=== PATIENT | female | born 1975 | race Caucasian/White ===

== ENCOUNTER → 2017-11-21 09:09 | Outpatient (CLI) | payer OTHER, MEDICAID, SELFPAY ==
[2017-11-21 09:41] LABS: Add Manual Diff / Slide Review NO; Basophils Percent Auto 0.6 % (0-2); Eosinophils Percent Auto 2.4 % (2-4); Hematocrit 39.5 % (36-46); Hemoglobin 12.6 g/dL (12.0-16.0); Lymphocytes Percent Auto 22.7 % (25-40); Mean Corpuscular HGB Conc 31.9 % (30-36); Mean Corpuscular Hemoglobin 26.2 PG (26-34); Mean Corpuscular Volume 82.2 fL (80-100); Monocytes Percent Auto 6.1 % (3-14); Neutrophils Absolute Auto 7500 /uL (3000-5900); Neutrophils Percent Auto 68.2 % (50-75); Platelet Count 377 X10^3/uL (150-400); Red Blood Cell Count 4.81 X10^6/uL (4.0-5.2); Red Cell Distribution Width 15.7 % (11.6-14.8)
[2017-11-21 10:16] LABS: Alanine Aminotransferase 47 IU/L (9-52); Albumin 4.1 g/dL (3.5-5.0); Albumin Globulin Ratio 1.3 (1.0-2.8); Alkaline Phosphatase 87 U/L (38-126); Aspartate Aminotransferase 26 IU/L (14-36); Bilirubin Total 0.6 mg/dL (0.2-1.3); Blood Urea Nitrogen 15 mg/dL (7-17); Calcium 9.1 mg/dL (8.4-10.2); Carbon Dioxide 30 mmol/L (22-32); Chloride 102 mmol/L (98-107); Cholesterol 169 mg/dL (140-199); Estimated Glomerular Filt Rate > 60.0 mL/min (>60); Globulin 3.2 g/dL (1.7-4.1); Glucose 104 mg/dL (70-100); HDL Cholesterol 40 mg/dL (40-60); HEMOLYSIS < 15 (0-50); LDL Cholesterol Calculated 108 mg/dL (<100); Potassium 4.6 mmol/L (3.4-5.1); Sodium 141 mmol/L (137-145); Total Protein 7.3 g/dL (6.3-8.2); Triglycerides 105 mg/dL (35-150)
[2017-11-21 10:32] LABS: Vitamin D 25 Hydroxy (D3) 19.3 ng/mL (30.0-100.0)
[2017-11-21 11:06] LABS: Thyroid Stimulating Hormone 4.93 uIU/mL (0.47-4.68)
[2017-11-23 08:23] LABS: Lamotrigine Lamictal 2.5 mcg/mL (4.0-18.0)
== END ==
PROVIDERS: PCP Internal Medicine; Visit Provider Internal Medicine
DX: E55.9 Vitamin D deficiency, unspecified (principal); E78.5 Hyperlipidemia, unspecified; E11.8 Type 2 diabetes mellitus with unspecified complications; E03.9 Hypothyroidism, unspecified; F98.8 Other specified behavioral and emotional disorders with onset usually occurring in childhood and adolescence
CPT/HCPCS: 36415; 80053; 80061; 80175; 82306; 83036; 84443; 85025

== ENCOUNTER → 2019-10-20 13:55 | Outpatient (CLI) | payer OTHER, MEDICAID, SELFPAY ==
[2019-10-20 15:12] LABS: Alanine Aminotransferase 32 IU/L (<35); Albumin 4.1 g/dL (3.5-5.0); Albumin Globulin Ratio 1.1 (1.0-2.8); Alkaline Phosphatase 111 U/L (38-126); Aspartate Aminotransferase 32 IU/L (14-36); BUN Creatinine Ratio 21.2 (6-22); Bilirubin Total 0.3 mg/dL (0.2-1.3); Blood Urea Nitrogen 11 mg/dL (7-17); Calcium 9.6 mg/dL (8.4-10.2); Carbon Dioxide 36 mmol/L (22-32); Chloride 101 mmol/L (98-107); Cholesterol 182 mg/dL (140-199); Estimated Glomerular Filt Rate > 60.0 mL/min (>60); Globulin 3.7 g/dL (1.7-4.1); Glucose 131 mg/dL (70-100); HDL Cholesterol 36 mg/dL (40-60); HEMOLYSIS < 15 (0-50); LDL Cholesterol Calculated 106 mg/dL (<100); Potassium 4.7 mmol/L (3.4-5.1); Sodium 145 mmol/L (137-145); Total Protein 7.8 g/dL (6.3-8.2); Triglycerides 201 mg/dL (35-150)
[2019-10-20 15:25] LABS: Creatinine Urine Random 90.9 mg/dL
[2019-10-20 15:31] LABS: Microalbumin Urine Random < 0.6 mg/dL (0-1.6)
[2019-10-20 15:40] LABS: Vitamin D 25 Hydroxy (D3) 14.5 ng/mL (30.0-100.0)
[2019-10-20 15:41] LABS: Thyroid Stimulating Hormone 7.02 uIU/mL (0.47-4.68)
== END ==
PROVIDERS: Family Provider Internal Medicine; PCP Internal Medicine; Referring Provider Internal Medicine; Visit Provider Internal Medicine
DX: E55.9 Vitamin D deficiency, unspecified (principal); E03.9 Hypothyroidism, unspecified; E78.5 Hyperlipidemia, unspecified; I10 Essential (primary) hypertension; E11.8 Type 2 diabetes mellitus with unspecified complications
CPT/HCPCS: 36415; 80053; 80061; 82043; 82306; 82570; 83036; 84443

== ENCOUNTER → 2020-05-13 10:26 | Outpatient (CLI) | payer OTHER, MEDICAID, SELFPAY ==
[2020-05-13] MEDS: COVID-19 VACC, Ad26(JANSSEN)/PF 0.5 ML IM (10:34)
== END ==
PROVIDERS: Family Provider Internal Medicine; PCP Internal Medicine; Visit Provider Internal Medicine
DX: Z23 Encounter for immunization (principal)
CPT/HCPCS: 0031A; 91303

== ENCOUNTER 2023-01-11 16:30 | Inpatient (IN) | payer OTHER, MEDICAID, SELFPAY ==
[2023-01-11] VITALS (80 sets, daily range): BP systolic 75–209; BP diastolic 42–130; PULSE 49–114; RESP 10–27; TEMP 35.9–36; O2SAT 89–100; BMI 51.5; BMI 41.6; BMI 41.0
--- NOTE | 2023-01-11 | DI.RAD.S_ITS ---
PROCEDURE: XR CHEST 1V INDICATIONS: CENTRAL LINE PLACEMENT LEFT TECHNIQUE: One view of the chest was acquired. COMPARISON: [facility], CR, XR CHEST 1V, 01/11/2023, 18:14. [facility], CR, XR CHEST 1V, 01/11/2023, 17:08. FINDINGS: Surgical changes and devices: Endotracheal tube is seen in stable position. Enteric tube traverses the diaphragm with tip below the field of view of this exam. Interval placement of a left internal jugular catheter. Catheter tip is noted to be turned on itself with tip projecting cephalad over the region of the left upper chest. Lungs and pleura: Low lung volumes are seen bilaterally. Bilateral interstitial prominence does not appear significantly changed. No definite pleural effusion or pneumothorax. Mediastinum: Stable cardiomediastinal silhouette. Bones and chest wall: No suspicious bony lesions. Overlying soft tissues appear unremarkable. IMPRESSION: 1. Interval placement of left internal jugular catheter. Mild positioning is noted with catheter tip directed cephalad projecting over the left upper chest. Recommend removal and replacement. 2. Stable endotracheal and enteric tubes. 3. Stable appearance of the heart and lungs when compared to the most recent prior exam. Line placement was discussed with the referring physician, Dr. Mullen, by telephone on 01/11/2023 at 8:09 PM. Approved by: Alvaro Kim M.D. on 01/11/2023 at 20:11
--- NOTE | 2023-01-11 | DI.RAD.S_ITS ---
PROCEDURE: XR CHEST 1V INDICATIONS: INTUBATION TECHNIQUE: One view of the chest was acquired. COMPARISON: [facility], CR, XR CHEST 1V, 01/11/2023, 17:08. FINDINGS: Surgical changes and devices: Nasogastric tube with tip and side port below the diaphragm. Endotracheal tube in place with tip approximately 2.8 cm above the memo. Lungs and pleura: Prominent interstitial markings and patchy bilateral opacities. No pleural effusions or pneumothorax. Mediastinum: Mediastinal contours appear normal. Heart size is enlarged. Bones and chest wall: No suspicious bony lesions. Overlying soft tissues appear unremarkable. IMPRESSION: Prominent interstitial markings and patchy bilateral opacities, concerning for edema or infection. Lines and tubes as above. Dictated by: Lio Guerra M.D. on 01/11/2023 at 18:49 Approved by: Lio Guerra M.D. on 01/11/2023 at 18:50
--- NOTE | 2023-01-11 16:44 | DI.RAD.S_ITS ---
PROCEDURE: XR CHEST 1V INDICATIONS: overdose TECHNIQUE: One view of the chest was acquired. COMPARISON: None. FINDINGS: Surgical changes and devices: None. Lungs and pleura: Low lung volumes. Prominent interstitial markings. No pleural effusions or pneumothorax. Mediastinum: Mediastinal contours appear normal. Heart size is enlarged. Bones and chest wall: No suspicious bony lesions. Overlying soft tissues appear unremarkable. IMPRESSION: Low lung volumes. Prominent interstitial markings which may be secondary to low lung volumes. Infection or edema is not excluded and clinical correlation is recommended. Cardiomegaly. Dictated by: Lio Guerra M.D. on 01/11/2023 at 17:38 Approved by: Lio Guerra M.D. on 01/11/2023 at 17:39
--- NOTE | 2023-01-11 16:45 | ED_ITS ---
HPI - Overdose <Marycruz Richards DO - Last Filed: 01/12/23 12:43> General Chief Complaint: Unresponsive Stated Complaint: OD Time Seen by Provider: 01/11/23 16:43 Source: patient, RN notes reviewed and old records reviewed Mode of arrival: EMS Limitations: altered mental status History of Present Illness HPI Narrative: 48-year-old female with history of DARON and obesity presents with complaints of reported intentional overdose. Unsure exact onset but believed to be in the last 1-2 hours. Patient had texted friend who reached out to law enforcement/EMS. Was found to have bottle of [place] 10/31967 tablets in the prescription filled on 12/25 appears to be 40 tablets missing. Patient also had a bottle of nighttime cold and flu with Tylenol 650 mg, dextromethorphan 30 mg, doxylamine 12.5 mg per 30 mL with a total of 55 mL in the bottle and approximately 320 mL missing. Patient received 4 mg in 2 mg aliquots from EMS with some improvement in mentation. Patient was afebrile, normal blood pressure, glucose and heart rate in the field. 93% room air. Patient appears altered, does respond mildly to verbal stimuli and responds well to physical stimuli. Unable to obtain further history from the patient. Related Data Home Medications Medication Instructions Recorded Confirmed OMEPRAZOLE 20 mg PO Q DAY ##0 11/23/09 Allergies Allergy/AdvReac Type Severity Reaction Status Date / Time No Allergy Information Allergy Verified 01/11/23 22:44 Available Review of Systems <Marycruz Richards DO - Last Filed: 01/12/23 12:43> Review of Systems ROS Unobtainable: Unobtainable due to medical condition Patient History <Marycruz Richards DO - Last Filed: 01/12/23 12:43> Medical History Morbid obesity with body mass index (BMI) of 50.0 to 59.9 in adult (~09/26/17) ADD (attention deficit disorder) without hyperactivity Osteoarthritis Migraine Irritable bowel syndrome (IBS) Fibromyalgia Asthma Atherosclerosis of abdominal aorta Type 2 diabetes mellitus Depression Anxiety Primary insomnia Snoring Nocturnal hypoxemia Obstructive sleep apnea of adult Social History household members: friend(s) Exam <Marycruz Richards DO - Last Filed: 01/12/23 12:43> Narrative Exam Narrative: GEN: Female responds to verbal stimuli can tell me her name, back asleep quickly patient appears to be in moderate distress. No diaphoresis. Patient does not follow commands. HEENT: Atraumatic, pupils are equal round reactive to light, extraocular movements are intact, no nystagmus, nares are clear, there is no conjunctival pallor. Throat is clear without any exudates, erythema, tonsillar enlargement or uvular deviation HEART: Regular rate and rhythm without murmur, clicks, rubs. Pulses are equal in upper and lower extremities LUNGS:Lungs clear to auscultation, no wheezes, rales, crackles, chest moves symmetrically ABD:bowel sounds normal, soft, non-tender, no guarding, rebound, rigidity, no masses noted, no hepatosplenomegaly :No CVA tenderness MSCL: Non-tender, no muscle atrophy, muscles strength 5/5 upper and lower extremities, full range of motion upper extremity. NEURO:CN 2-12 intact, sensation normal SKIN: Rash, erythema or other skin changes. Initial Vital Signs Initial Vital Signs: Vital Signs Pulse Rate 73 01/11/23 16:46 Respiratory Rate 17 01/11/23 16:46 Pulse Oximetry 95 01/11/23 16:46 <Marycruz Mullen MD - Last Filed: 01/12/23 02:27> Initial Vital Signs Initial Vital Signs: Vital Signs Pulse Rate 73 01/11/23 16:46 Respiratory Rate 17 01/11/23 16:46 Pulse Oximetry 95 01/11/23 16:46 Procedures <Marycruz Mullen MD - Last Filed: 01/12/23 02:27> Central Line Placement Left IJ: Time Out Performed: Yes Patient Placed on Monitor/Pulse Ox: Yes MD Prep: mask, gown and gloves Central Line Prep: Chlorhexidine scrub and sterile drapes applied Local Anesthetic: lidocaine 1% Amount of anesthesia used (mL): 5 Ultrasound Used for Placement: Yes Central Line Lumen Inserted: triple Post Procedure: sutured in place, good blood return, all ports aspirated, flushed, capped and sterile dressing applied Post Procedure X-Ray: other (tip of catheter appears to loop back up into IJ) Patient Tolerated Procedure: Well and No complications Complications: other (Malposition) Intubation Time out performed: Yes sedative: Etomidate Mg Given: 20 paralytic: Rocuronium Laryngoscope: Donnie ET Tube Size: 7.5 ET Tube Uncuffed: No Tube Secured Depth (cm): 25 Tube Secured Location: teeth Tube Placement Confirmation: Visualized tube passing through cords, Equal breath sounds bilaterally, No breath sounds over epigastrium, Confirmation by capnometry and Chest Xray Patient Tolerated Procedure: No complications Intubation Complications: none Scores <Marycruz Richards DO - Last Filed: 01/12/23 12:43> GCS [place] coma scale eye opening: To pressure [place] coma scale verbal response: Words Shaila coma scale motor response: Localising Shaila coma scale total score: 10 <Marycruz Mullen MD - Last Filed: 01/12/23 02:27> GCS Shaila coma scale total score: 10 Course <Marycruz Richards DO - Last Filed: 01/12/23 12:43> Orders Ordered: Chlorhexidine Gluconate (Chlorhexidine Gluconate 15 Ml Cup) 15 ml PO Q6HR [facility] Last Admin: 01/12/23 12:00 Dose: 15 ml Documented By: Enoxaparin Sodium (Enoxaparin 40 Mg/0.4 Ml Syringe) 40 mg SUBCUT BID [facility] Last Admin: 01/12/23 11:00 Dose: 40 mg Documented By: MS Fentanyl (Fentanyl 100 Mcg/2 Ml Inj) 44 mcg 0.35 mcg/kg (44 mcg) IV Q1HR PRN PRN Reason: Pain, Severe (7-10) Heparin Sodium (Porcine) (Heparin Flush (Cl/Picc/Mid-Line) 50 Unit/5 Ml Syringe) 50 unit IV PRN PRN PRN Reason: Flush Naloxone HCl 2 mg/ Sodium (Chloride) 500 mls @ 62.5 mls/hr IV TITRATE [facility] Last Infusion: 01/11/23 18:00 Dose: 0 mg/hr, 0 mls/hr Documented By: Admin: 01/11/23 17:40 Dose: 0.25 mg/hr, 62.5 mls/hr Documented By: CARMEN NOREPINEPHRINE BITARTRATE/D5W (Levophed) 4 mg in 250 mls @ 47.967 mls/hr IV TITRATE [facility]; Protocol Last Titration: 01/11/23 21:00 Dose: 0 mcg/kg/min, 0 mls/hr Documented By: Titration: 01/11/23 19:42 Dose: 0.025 mcg/kg/min, 11.992 mls/hr Documented By: Titration: 01/11/23 18:17 Dose: 0.05 mcg/kg/min, 23.984 mls/hr Documented By: Admin: 01/11/23 17:30 Dose: 0.1 mcg/kg/min, 47.967 mls/hr Documented By: CARMEN Dextrose/Sodium Chloride (Dextrose 5%-0.9% Ns) 1,000 mls @ 100 mls/hr IV CONT TEE Last Admin: 01/12/23 09:17 Dose: 100 mls/hr Documented By: Infusion: 01/12/23 09:00 Dose: Infused Documented By: Admin: 01/11/23 23:00 Dose: 100 mls/hr Documented By: LEONILA Propofol (Propofol) 1,000 mg in 100 mls @ 3.837 mls/hr IV TITRATE TEE; Protocol Last Admin: 01/12/23 12:07 Dose: 45 mcg/kg/min, 34.533 mls/hr Documented By: Titration: 01/12/23 12:07 Dose: Infused Documented By: Admin: 01/12/23 09:15 Dose: 45 mcg/kg/min, 34.533 mls/hr Documented By: Titration: 01/12/23 08:33 Dose: Infused Documented By: Titration: 01/12/23 07:37 Dose: 40 mcg/kg/min, 30.696 mls/hr Documented By: Titration: 01/12/23 04:24 Dose: 30 mcg/kg/min, 23.022 mls/hr Documented By: Admin: 01/12/23 03:55 Dose: 25 mcg/kg/min, 19.185 mls/hr Documented By: Titration: 01/12/23 03:55 Dose: Infused Documented By: Admin: 01/12/23 00:36 Dose: 25 mcg/kg/min, 19.185 mls/hr Documented By: Titration: 01/12/23 00:36 Dose: Infused Documented By: Titration: 01/11/23 21:45 Dose: 25 mcg/kg/min, 19.185 mls/hr Documented By: Admin: 01/11/23 20:32 Dose: 10 mcg/kg/min, 7.674 mls/hr Documented By: CARMEN Fentanyl 1,000 mcg/ Dextrose 250 mls @ 22.05 mls/hr IV TITRATE TEE; Protocol Last Titration: 01/12/23 10:30 Dose: 0.9 mcg/kg/hr, 28.35 mls/hr Documented By: Admin: 01/12/23 09:52 Dose: 0.7 mcg/kg/hr, 22.05 mls/hr Documented By: Midazolam HCl (Midazolam 2 Mg/2 Ml Vial) 2 mg IV Q2HR PRN PRN Reason: Agitation Last Admin: 01/12/23 09:43 Dose: 2 mg Documented By: Naloxone HCl (Naloxone 0.4 Mg/Ml Vial) 0.2 mg IV Q2MIN PRN PRN Reason: Opiate Reversal Pantoprazole Sodium (Pantoprazole 40 Mg Vial) 40 mg IV DAILY TEE Last Admin: 01/12/23 08:13 Dose: 40 mg Documented By: Discontinued Medications Charcoal (Activated Charcoal 50 Gm/240 Ml) 50 gm PO NOW ONE Stop: 01/11/23 21:10 Last Admin: 01/11/23 21:25 Dose: 50 gm Documented By: RUEL Charcoal/Sorbitol (Activated Charcoal/Sorbit 50 Gm/240 Ml) 100 gm TUBE NOW ONE Stop: 01/11/23 18:31 Last Admin: 01/11/23 18:46 Dose: 100 gm Documented By: CARMEN Etomidate (Etomidate 2 Mg/Ml 10 Ml Vial) 20 mg IV NOW ONE Stop: 01/11/23 18:12 Last Admin: 01/11/23 18:11 Dose: 20 mg Documented By: RONY Sodium Chloride (Normal Saline 0.9%) 1,000 mls @ 150 mls/hr IV CONT TEE Last Admin: 01/12/23 08:37 Dose: Not Given Documented By: Sodium Chloride (Normal Saline 0.9%) 1,000 mls @ 150 mls/hr IV BOLUS PRN PRN Reason: Fluid replacement Last Infusion: 01/11/23 18:37 Dose: Infused Documented By: Admin: 01/11/23 17:12 Dose: 1,000 mls/hr Documented By: CROW Acetylcysteine 19.02772 g/ (Dextrose) 495.9348 mls @ 495.935 mls/hr IV NOW ONE Stop: 01/11/23 17:31 Last Infusion: 01/11/23 19:02 Dose: Infused Documented By: Admin: 01/11/23 18:02 Dose: 495.935 mls/hr Documented By: RONY Acetylcysteine 61.76278 g/ (Dextrose) 1,806.9912 mls @ 75.291 mls/hr IV NOW ONE Stop: 01/11/23 17:31 Last Admin: 01/11/23 19:24 Dose: 75.291 mls/hr Documented By: CARMEN Magnesium Sulfate (Magnesium Sulfate) 2 gm in 50 mls @ 25 mls/hr IV NOW ONE Stop: 01/11/23 19:47 Last Infusion: 01/11/23 18:28 Dose: Infused Documented By: RONY Co-signed By: FERNANDO Admin: 01/11/23 18:03 Dose: 120 mls/hr Documented By: RONY Co-signed By: RUEL Sodium Chloride (Normal Saline 0.9%) 1,000 mls @ 1,000 mls/hr IV BOLUS ONE Stop: 01/11/23 18:29 Last Infusion: 01/11/23 18:15 Dose: Infused Documented By: Admin: 01/11/23 17:30 Dose: 1,000 mls/hr Documented By: RONY Magnesium Sulfate (Magnesium Sulfate) 2 gm in 50 mls @ 25 mls/hr IV NOW ONE Stop: 01/12/23 01:14 Last Infusion: 01/12/23 03:38 Dose: Infused Documented By: LEONILA Co-signed By: AMADOR Admin: 01/12/23 00:44 Dose: 25 mls/hr Documented By: LEONILA Co-signed By: VH POTASSIUM CHLORIDE IN WATER (Potassium Cl 10 Meq/100 Ml Nayla) 10 meq in 100 mls @ 100 mls/hr IV Q1H TEE Stop: 01/12/23 04:29 Last Infusion: 01/12/23 05:56 Dose: Infused Documented By: Admin: 01/12/23 04:47 Dose: 100 mls/hr Documented By: Infusion: 01/12/23 04:43 Dose: Infused Documented By: Admin: 01/12/23 03:43 Dose: 100 mls/hr Documented By: Infusion: 01/12/23 03:35 Dose: Infused Documented By: Admin: 01/12/23 02:35 Dose: 100 mls/hr Documented By: Infusion: 01/12/23 02:34 Dose: Infused Documented By: Admin: 01/12/23 01:34 Dose: 100 mls/hr Documented By: LEONILA POTASSIUM CHLORIDE IN WATER (Potassium Cl 10 Meq/100 Ml Nayla) 10 meq in 100 mls @ 100 mls/hr IV Q1H TEE Stop: 01/12/23 10:29 Last Admin: 01/12/23 10:23 Dose: 100 mls/hr Documented By: Infusion: 01/12/23 10:16 Dose: Infused Documented By: Admin: 01/12/23 09:16 Dose: 100 mls/hr Documented By: Infusion: 01/12/23 08:30 Dose: Infused Documented By: Admin: 01/12/23 07:30 Dose: 100 mls/hr Documented By: Infusion: 01/12/23 07:30 Dose: Infused Documented By: Admin: 01/12/23 06:30 Dose: 100 mls/hr Documented By: Rocuronium [place] (Rocuronium 100 Mg/10 Ml Vial) 150 mg IV NOW ONE Stop: 01/11/23 18:13 Last Admin: 01/11/23 18:12 Dose: 150 mg Documented By: RONY Sodium Bicarbonate (Sodium Bicarb 8.4% Syringe) 130 meq 1 meq/kg (130 meq) IV NOW ONE Stop: 01/11/23 17:49 Last Admin: 01/11/23 17:59 Dose: 130 meq Documented By: RONY Vital Signs Vital signs: Vital Signs - 8 hr 01/11/23 18:30 01/11/23 18:30 01/11/23 18:35 Pulse Rate 69 62 Respiratory Rate 20 20 Blood Pressure 122/69 Pulse Oximetry 98 98 01/11/23 18:35 01/11/23 18:40 01/11/23 18:40 Pulse Rate 61 Respiratory Rate 20 Blood Pressure 135/80 137/84 Pulse Oximetry 98 01/11/23 18:45 01/11/23 18:45 01/11/23 18:50 Pulse Rate 59 L Respiratory Rate 20 Blood Pressure 136/89 151/92 H Pulse Oximetry 98 01/11/23 18:50 01/11/23 18:55 01/11/23 18:55 Pulse Rate 60 57 L Respiratory Rate 20 20 Blood Pressure 142/96 H Pulse Oximetry 98 98 01/11/23 19:00 01/11/23 19:00 01/11/23 19:05 Pulse Rate 57 L 58 L Respiratory Rate 20 20 Blood Pressure 135/90 Pulse Oximetry 98 98 01/11/23 19:05 01/11/23 19:10 01/11/23 19:10 Pulse Rate 57 L Respiratory Rate 20 Blood Pressure 140/96 H 141/94 H Pulse Oximetry 98 01/11/23 19:15 01/11/23 19:15 01/11/23 19:20 Pulse Rate 94 H 69 Respiratory Rate 20 20 Blood Pressure 198/117 H Pulse Oximetry 98 98 01/11/23 19:20 01/11/23 19:25 01/11/23 19:26 Pulse Rate 85 84 Respiratory Rate 20 20 Blood Pressure 163/89 H Pulse Oximetry 97 97 01/11/23 19:26 01/11/23 19:30 01/11/23 19:30 Pulse Rate 58 L Respiratory Rate 20 Blood Pressure 186/106 H 160/94 H Pulse Oximetry 99 01/11/23 19:35 01/11/23 19:35 01/11/23 19:40 Pulse Rate 104 H 59 L Respiratory Rate 23 20 Blood Pressure 195/117 H Pulse Oximetry 98 98 01/11/23 19:41 01/11/23 19:41 01/11/23 19:45 Pulse Rate 58 L 69 Respiratory Rate 23 23 Blood Pressure 152/81 H Pulse Oximetry 99 100 01/11/23 19:45 01/11/23 19:50 01/11/23 19:51 Pulse Rate 88 72 Respiratory Rate 24 20 Blood Pressure 143/83 H Pulse Oximetry 95 95 01/11/23 19:51 01/11/23 19:55 01/11/23 19:55 Pulse Rate 80 Respiratory Rate 21 Blood Pressure 180/98 H 172/113 H Pulse Oximetry 89 L 01/11/23 20:00 01/11/23 20:00 01/11/23 20:05 Pulse Rate 84 75 Respiratory Rate 20 20 Blood Pressure 152/86 H Pulse Oximetry 99 92 01/11/23 20:05 01/11/23 20:10 01/11/23 20:11 Pulse Rate 113 H 114 H Respiratory Rate 22 24 Blood Pressure 142/84 H Pulse Oximetry 97 96 01/11/23 20:11 Pulse Rate Respiratory Rate Blood Pressure 202/130 H Pulse Oximetry <Marycruz Mullen MD - Last Filed: 01/12/23 02:27> Orders Ordered: Chlorhexidine Gluconate (Chlorhexidine Gluconate 15 Ml Cup) 15 ml PO Q6HR [facility] Last Admin: 01/12/23 12:00 Dose: 15 ml Documented By: MS Enoxaparin Sodium (Enoxaparin 40 Mg/0.4 Ml Syringe) 40 mg SUBCUT BID [facility] Last Admin: 01/12/23 11:00 Dose: 40 mg Documented By: MS Fentanyl (Fentanyl 100 Mcg/2 Ml Inj) 44 mcg 0.35 mcg/kg (44 mcg) IV Q1HR PRN PRN Reason: Pain, Severe (7-10) Heparin Sodium (Porcine) (Heparin Flush (Cl/Picc/Mid-Line) 50 Unit/5 Ml Syringe) 50 unit IV PRN PRN PRN Reason: Flush Naloxone HCl 2 mg/ Sodium (Chloride) 500 mls @ 62.5 mls/hr IV TITRATE TEE Last Infusion: 01/11/23 18:00 Dose: 0 mg/hr, 0 mls/hr Documented By: Admin: 01/11/23 17:40 Dose: 0.25 mg/hr, 62.5 mls/hr Documented By: CARMEN NOREPINEPHRINE BITARTRATE/D5W (Levophed) 4 mg in 250 mls @ 47.967 mls/hr IV TITRATE [facility]; Protocol Last Titration: 01/11/23 21:00 Dose: 0 mcg/kg/min, 0 mls/hr Documented By: Titration: 01/11/23 19:42 Dose: 0.025 mcg/kg/min, 11.992 mls/hr Documented By: Titration: 01/11/23 18:17 Dose: 0.05 mcg/kg/min, 23.984 mls/hr Documented By: Admin: 01/11/23 17:30 Dose: 0.1 mcg/kg/min, 47.967 mls/hr Documented By: CARMEN Dextrose/Sodium Chloride (Dextrose 5%-0.9% Ns) 1,000 mls @ 100 mls/hr IV CONT TEE Last Admin: 01/12/23 09:17 Dose: 100 mls/hr Documented By: Infusion: 01/12/23 09:00 Dose: Infused Documented By: Admin: 01/11/23 23:00 Dose: 100 mls/hr Documented By: LEONILA Propofol (Propofol) 1,000 mg in 100 mls @ 3.837 mls/hr IV TITRATE [facility]; Protocol Last Admin: 01/12/23 12:07 Dose: 45 mcg/kg/min, 34.533 mls/hr Documented By: Titration: 01/12/23 12:07 Dose: Infused Documented By: Admin: 01/12/23 09:15 Dose: 45 mcg/kg/min, 34.533 mls/hr Documented By: Titration: 01/12/23 08:33 Dose: Infused Documented By: Titration: 01/12/23 07:37 Dose: 40 mcg/kg/min, 30.696 mls/hr Documented By: Titration: 01/12/23 04:24 Dose: 30 mcg/kg/min, 23.022 mls/hr Documented By: Admin: 01/12/23 03:55 Dose: 25 mcg/kg/min, 19.185 mls/hr Documented By: Titration: 01/12/23 03:55 Dose: Infused Documented By: Admin: 01/12/23 00:36 Dose: 25 mcg/kg/min, 19.185 mls/hr Documented By: Titration: 01/12/23 00:36 Dose: Infused Documented By: Titration: 01/11/23 21:45 Dose: 25 mcg/kg/min, 19.185 mls/hr Documented By: Admin: 01/11/23 20:32 Dose: 10 mcg/kg/min, 7.674 mls/hr Documented By: CARMEN Fentanyl 1,000 mcg/ Dextrose 250 mls @ 22.05 mls/hr IV TITRATE [facility]EE; Protocol Last Titration: 01/12/23 10:30 Dose: 0.9 mcg/kg/hr, 28.35 mls/hr Documented By: Admin: 01/12/23 09:52 Dose: 0.7 mcg/kg/hr, 22.05 mls/hr Documented By: Midazolam HCl (Midazolam 2 Mg/2 Ml Vial) 2 mg IV Q2HR PRN PRN Reason: Agitation Last Admin: 01/12/23 09:43 Dose: 2 mg Documented By: Naloxone HCl (Naloxone 0.4 Mg/Ml Vial) 0.2 mg IV Q2MIN PRN PRN Reason: Opiate Reversal Pantoprazole Sodium (Pantoprazole 40 Mg Vial) 40 mg IV DAILY [facility] Last Admin: 01/12/23 08:13 Dose: 40 mg Documented By: Discontinued Medications Charcoal (Activated Charcoal 50 Gm/240 Ml) 50 gm PO NOW ONE Stop: 01/11/23 21:10 Last Admin: 01/11/23 21:25 Dose: 50 gm Documented By: RUEL Charcoal/Sorbitol (Activated Charcoal/Sorbit 50 Gm/240 Ml) 100 gm TUBE NOW ONE Stop: 01/11/23 18:31 Last Admin: 01/11/23 18:46 Dose: 100 gm Documented By: CARMEN Etomidate (Etomidate 2 Mg/Ml 10 Ml Vial) 20 mg IV NOW ONE Stop: 01/11/23 18:12 Last Admin: 01/11/23 18:11 Dose: 20 mg Documented By: RONY Sodium Chloride (Normal Saline 0.9%) 1,000 mls @ 150 mls/hr IV CONT [facility] Last Admin: 01/12/23 08:37 Dose: Not Given Documented By: Sodium Chloride (Normal Saline 0.9%) 1,000 mls @ 150 mls/hr IV BOLUS PRN PRN Reason: Fluid replacement Last Infusion: 01/11/23 18:37 Dose: Infused Documented By: Admin: 01/11/23 17:12 Dose: 1,000 mls/hr Documented By: CROW Acetylcysteine 19.62375 g/ (Dextrose) 495.9348 mls @ 495.935 mls/hr IV NOW ONE Stop: 01/11/23 17:31 Last Infusion: 01/11/23 19:02 Dose: Infused Documented By: Admin: 01/11/23 18:02 Dose: 495.935 mls/hr Documented By: RONY Acetylcysteine 61.08723 g/ (Dextrose) 1,806.9912 mls @ 75.291 mls/hr IV NOW ONE Stop: 01/11/23 17:31 Last Admin: 01/11/23 19:24 Dose: 75.291 mls/hr Documented By: CARMEN Magnesium Sulfate (Magnesium Sulfate) 2 gm in 50 mls @ 25 mls/hr IV NOW ONE Stop: 01/11/23 19:47 Last Infusion: 01/11/23 18:28 Dose: Infused Documented By: RONY Co-signed By: FERNANDO Admin: 01/11/23 18:03 Dose: 120 mls/hr Documented By: RONY Co-signed By: RUEL Sodium Chloride (Normal Saline 0.9%) 1,000 mls @ 1,000 mls/hr IV BOLUS ONE Stop: 01/11/23 18:29 Last Infusion: 01/11/23 18:15 Dose: Infused Documented By: Admin: 01/11/23 17:30 Dose: 1,000 mls/hr Documented By: RONY Magnesium Sulfate (Magnesium Sulfate) 2 gm in 50 mls @ 25 mls/hr IV NOW ONE Stop: 01/12/23 01:14 Last Infusion: 01/12/23 03:38 Dose: Infused Documented By: LEONILA Co-signed By: AMADOR Admin: 01/12/23 00:44 Dose: 25 mls/hr Documented By: LEONILA Co-signed By: ELVA POTASSIUM CHLORIDE IN WATER (Potassium Cl 10 Meq/100 Ml Nayla) 10 meq in 100 mls @ 100 mls/hr IV Q1H TEE Stop: 01/12/23 04:29 Last Infusion: 01/12/23 05:56 Dose: Infused Documented By: Admin: 01/12/23 04:47 Dose: 100 mls/hr Documented By: Infusion: 01/12/23 04:43 Dose: Infused Documented By: Admin: 01/12/23 03:43 Dose: 100 mls/hr Documented By: Infusion: 01/12/23 03:35 Dose: Infused Documented By: Admin: 01/12/23 02:35 Dose: 100 mls/hr Documented By: Infusion: 01/12/23 02:34 Dose: Infused Documented By: Admin: 01/12/23 01:34 Dose: 100 mls/hr Documented By: LEONILA POTASSIUM CHLORIDE IN WATER (Potassium Cl 10 Meq/100 Ml Nayla) 10 meq in 100 mls @ 100 mls/hr IV Q1H TEE Stop: 01/12/23 10:29 Last Admin: 01/12/23 10:23 Dose: 100 mls/hr Documented By: Infusion: 01/12/23 10:16 Dose: Infused Documented By: Admin: 01/12/23 09:16 Dose: 100 mls/hr Documented By: Infusion: 01/12/23 08:30 Dose: Infused Documented By: Admin: 01/12/23 07:30 Dose: 100 mls/hr Documented By: Infusion: 01/12/23 07:30 Dose: Infused Documented By: Admin: 01/12/23 06:30 Dose: 100 mls/hr Documented By: Rocuronium [place] (Rocuronium 100 Mg/10 Ml Vial) 150 mg IV NOW ONE Stop: 01/11/23 18:13 Last Admin: 01/11/23 18:12 Dose: 150 mg Documented By: RONY Sodium Bicarbonate (Sodium Bicarb 8.4% Syringe) 130 meq 1 meq/kg (130 meq) IV NOW ONE Stop: 01/11/23 17:49 Last Admin: 01/11/23 17:59 Dose: 130 meq Documented By: RONY Vital Signs Vital signs: Vital Signs - 8 hr 01/11/23 18:30 01/11/23 18:30 01/11/23 18:35 Pulse Rate 69 62 Respiratory Rate 20 20 Blood Pressure 122/69 Pulse Oximetry 98 98 01/11/23 18:35 01/11/23 18:40 01/11/23 18:40 Pulse Rate 61 Respiratory Rate 20 Blood Pressure 135/80 137/84 Pulse Oximetry 98 01/11/23 18:45 01/11/23 18:45 01/11/23 18:50 Pulse Rate 59 L Respiratory Rate 20 Blood Pressure 136/89 151/92 H Pulse Oximetry 98 01/11/23 18:50 01/11/23 18:55 01/11/23 18:55 Pulse Rate 60 57 L Respiratory Rate 20 20 Blood Pressure 142/96 H Pulse Oximetry 98 98 01/11/23 19:00 01/11/23 19:00 01/11/23 19:05 Pulse Rate 57 L 58 L Respiratory Rate 20 20 Blood Pressure 135/90 Pulse Oximetry 98 98 01/11/23 19:05 01/11/23 19:10 01/11/23 19:10 Pulse Rate 57 L Respiratory Rate 20 Blood Pressure 140/96 H 141/94 H Pulse Oximetry 98 01/11/23 19:15 01/11/23 19:15 01/11/23 19:20 Pulse Rate 94 H 69 Respiratory Rate 20 20 Blood Pressure 198/117 H Pulse Oximetry 98 98 01/11/23 19:20 01/11/23 19:25 01/11/23 19:26 Pulse Rate 85 84 Respiratory Rate 20 20 Blood Pressure 163/89 H Pulse Oximetry 97 97 01/11/23 19:26 01/11/23 19:30 01/11/23 19:30 Pulse Rate 58 L Respiratory Rate 20 Blood Pressure 186/106 H 160/94 H Pulse Oximetry 99 01/11/23 19:35 01/11/23 19:35 01/11/23 19:40 Pulse Rate 104 H 59 L Respiratory Rate 23 20 Blood Pressure 195/117 H Pulse Oximetry 98 98 01/11/23 19:41 01/11/23 19:41 01/11/23 19:45 Pulse Rate 58 L 69 Respiratory Rate 23 23 Blood Pressure 152/81 H Pulse Oximetry 99 100 01/11/23 19:45 01/11/23 19:50 01/11/23 19:51 Pulse Rate 88 72 Respiratory Rate 24 20 Blood Pressure 143/83 H Pulse Oximetry 95 95 01/11/23 19:51 01/11/23 19:55 01/11/23 19:55 Pulse Rate 80 Respiratory Rate 21 Blood Pressure 180/98 H 172/113 H Pulse Oximetry 89 L 01/11/23 20:00 01/11/23 20:00 01/11/23 20:05 Pulse Rate 84 75 Respiratory Rate 20 20 Blood Pressure 152/86 H Pulse Oximetry 99 92 01/11/23 20:05 01/11/23 20:10 01/11/23 20:11 Pulse Rate 113 H 114 H Respiratory Rate 22 24 Blood Pressure 142/84 H Pulse Oximetry 97 96 01/11/23 20:11 Pulse Rate Respiratory Rate Blood Pressure 202/130 H Pulse Oximetry MDM - Overdose <Marycruz Richards DO - Last Filed: 01/12/23 12:43> Lab Data 12/08/23 04:50 01/12/23 04:50 Labs: Lab Results 01/11/23 01/11/23 01/11/23 Range/Units 16:46 16:46 16:50 WBC 9.2 (4.5-11.0) X10^3/uL RBC 4.56 (4.0-5.2) X10^6/uL Hgb 13.9 (12.0-16.0) g/dL Hct 42.5 (36-46) % MCV 93.3 (80-100) fL MCH 30.6 (26-34) PG MCHC 32.8 (30-36) % RDW 15.0 H (11.6-14.8) % Plt Count 278 (150-400) X10^3/uL Neut % (Auto) 65.1 (50-75) % Lymph % (Auto) 28.4 (25-40) % Wetzel % (Auto) 5.5 (3-14) % Eos % (Auto) 0.5 L (2-4) % Baso % (Auto) 0.5 (0-2) % Neut # (Auto) 6000 (4322-7123) /uL Lymph # (Auto) 2600 (4085-5318) /uL Wetzel # (Auto) 500 (0-900) /uL Eos # (Auto) 0 (0-450) /uL Baso # (Auto) 0 (0-100) /uL PT 12.2 (9.4-12.5) SECONDS INR 1.1 (0.9-1.3) ABG Sample Site ABG pH (7.35-7.45) ABG pCO2 (35-45) mmHg ABG pO2 (80-100) mmHg ABG HCO3 (23-27) mmol/L ABG Total CO2 (23-27) mmol/L ABG O2 Saturation (95-100) % ABG Base Excess (-2-3) mmol/L FiO2 Sodium 141 (137-145) mmol/L Potassium 3.5 (3.4-5.1) mmol/L Chloride 110 H (98-107) mmol/L Carbon Dioxide 22 (22-32) mmol/L BUN 9 (7-17) mg/dL Creatinine 0.72 (0.52-1.04) mg/dL Estimated GFR > 60 (>60) mL/min BUN/Creatinine Ratio 12.5 (6-22) Glucose 85 (70-100) mg/dL Lactate 2.5 H (0.7-2.1) mmol/L Calcium 9.2 (8.4-10.2) mg/dL Total Bilirubin 0.6 (0.2-1.3) mg/dL Conjugated Bilirubin 0.0 (0.0-0.3) md/dL Unconjugated Bilirubin 0.3 (0.0-1.1) mg/dL AST 43 H (14-36) IU/L ALT 28 (<35) IU/L Alkaline Phosphatase 66 (38-126) U/L Total Creatine Kinase 32 (30-135) U/L CK-MB (CK-2) <1.0 (0.0-5.3) ng/mL Troponin I < 0.012 (0.01-0.034) ng/mL Total Protein 7.2 (6.3-8.2) g/dL Albumin 3.8 (3.5-5.0) g/dL Globulin 3.4 (1.7-4.1) g/dL Albumin/Globulin Ratio 1.1 (1.0-2.8) Lipase 84 (23-300) U/L Salicylates < 1.0 (<20) mg/dL U Opiates 300ng/mL cut Positive H (Negative) Ur Oxycodone Screen Positive H (Negative) Urine Methadone Screen Negative (Negative) Acetaminophen 50 H 50 H (10-30) ug/mL Ur Barbiturates Screen Negative (Negative) U Tricyclic Antidepress Positive H (Negative) Ur Phencyclidine Scrn Negative (Negative) Ur Amphetamines Screen Negative (Negative) U Methamphetamines Scrn Negative (Negative) Ur MDMA Scrn (Ecstasy) Negative (Negative) U Benzodiazepines Scrn Positive H (Negative) Urine Cocaine Screen Negative (Negative) U Marijuana (THC) Screen Positive H (Negative) Ethyl Alcohol 14 H ( - 10) mg/dL 01/11/23 01/11/23 01/11/23 Range/Units 17:27 18:44 19:10 WBC (4.5-11.0) X10^3/uL RBC (4.0-5.2) X10^6/uL Hgb (12.0-16.0) g/dL Hct (36-46) % MCV (80-100) fL MCH (26-34) PG MCHC (30-36) % RDW (11.6-14.8) % Plt Count (150-400) X10^3/uL Neut % (Auto) (50-75) % Lymph % (Auto) (25-40) % Wetzel % (Auto) (3-14) % Eos % (Auto) (2-4) % Baso % (Auto) (0-2) % Neut # (Auto) (7104-5264) /uL Lymph # (Auto) (9266-4814) /uL Wetzel # (Auto) (0-900) /uL Eos # (Auto) (0-450) /uL Baso # (Auto) (0-100) /uL PT (9.4-12.5) SECONDS INR (0.9-1.3) ABG Sample Site Left radial Right radial ABG pH 7.21 L* 7.29 L* (7.35-7.45) ABG pCO2 46.9 H 39.7 (35-45) mmHg ABG pO2 79 L 94 (80-100) mmHg ABG HCO3 19 L 19 L (23-27) mmol/L ABG Total CO2 20 L 20 L (23-27) mmol/L ABG O2 Saturation 93 L 96 (95-100) % ABG Base Excess -9.0 L -7.0 L (-2-3) mmol/L FiO2 32 40 Sodium (137-145) mmol/L Potassium (3.4-5.1) mmol/L Chloride (98-107) mmol/L Carbon Dioxide (22-32) mmol/L BUN (7-17) mg/dL Creatinine (0.52-1.04) mg/dL Estimated GFR (>60) mL/min BUN/Creatinine Ratio (6-22) Glucose (70-100) mg/dL Lactate 1.9 (0.7-2.1) mmol/L Calcium (8.4-10.2) mg/dL Total Bilirubin (0.2-1.3) mg/dL Conjugated Bilirubin (0.0-0.3) md/dL Unconjugated Bilirubin (0.0-1.1) mg/dL AST (14-36) IU/L ALT (<35) IU/L Alkaline Phosphatase (38-126) U/L Total Creatine Kinase (30-135) U/L CK-MB (CK-2) (0.0-5.3) ng/mL Troponin I (0.01-0.034) ng/mL Total Protein (6.3-8.2) g/dL Albumin (3.5-5.0) g/dL Globulin (1.7-4.1) g/dL Albumin/Globulin Ratio (1.0-2.8) Lipase (23-300) U/L Salicylates (<20) mg/dL U Opiates 300ng/mL cut (Negative) Ur Oxycodone Screen (Negative) Urine Methadone Screen (Negative) Acetaminophen (10-30) ug/mL Ur Barbiturates Screen (Negative) U Tricyclic Antidepress (Negative) Ur Phencyclidine Scrn (Negative) Ur Amphetamines Screen (Negative) U Methamphetamines Scrn (Negative) Ur MDMA Scrn (Ecstasy) (Negative) U Benzodiazepines Scrn (Negative) Urine Cocaine Screen (Negative) U Marijuana (THC) Screen (Negative) Ethyl Alcohol ( - 10) mg/dL Point of Care Testing Glucose POC 86 ECG Data Attestation: I personally reviewed and interpreted this ECG as follows: Interpretation: Normal sinus rhythm rate of 79 CA 156 QRS of 104 QTC [address] No acute ST elevation depression. MDM Narrative Medical decision making narrative: 48-year-old female presents with reported intentional overdose there is a piece of paper that is states she has DNR paperwork and that says I am sorry. It has contact information. There is a but not a POLST form. It appears to be a DNR/DNI but appears to possibly be a copy is hand written in portions. Poison control recommendations. Case 1. [id number]. Recommend labs, EKG, PT/INR CMP. Tylenol level. Recommend starting neck if Tylenol level is detected. Expect for decreased [employer] ASSIST[employer] and respirations, patient may have increasing sedation and require intubation. Can perform activated charcoal if intubated. Minimum 4 hour monitoring post Narcan. 1 L IV bolus then followed by 2 times maintenance at 150 mL/hour. Recommend EKG Q 2 hours x3 looking for widened QRS or QT. Recommends sodium bicarb if QRS greater than 110 and Mag 1-2 g if QTC greater than 500 Law enforcement arrived. Was patient was found at [facility], patient had paperwork at next to her. Medications in his seat, she also had shotgun in the vehicle. I spoke with her sister who states she is been suicidal and had hospitalizations on and off for the last several years and recently diagnosed with borderline personality. She states her sister had mentioned filling out DNR paperwork but has been back and forth in terms of whether or not she wanted a DNR or not. Sister suspect that this is more related to her overdose. We discussed paperwork notes gastric lavage which is consistent with planning and overdose. Sister states family is in agreement that they do not wish on her DNR. Think this is very appropriate as it seems like it was planned by the patient and she clearly has not intentional overdose. Patient had repeat EKG QRS has lengthened to 114 QTC is greater than sodium bicarb ordered and magnesium 2 g were ordered. Patient had elevated Tylenol level, NAC High-dose dosing. Repeat 4 hour level ordered as well. Patient's blood pressure has decreased had received a L bolus is receiving a 2nd but Levophed ordered as well. Plan for intubation patient has been maintaining oxygenation but will likely have increasing sedation. Patient signed out to Dr. Mullen who assumes care. Naloxone at Discharge Meets criteria for naloxone at discharge?: Yes <Marycruz Mullen MD - Last Filed: 01/12/23 02:27> Differential Diagnosis Differential diagnosis: Likely cocaine intoxication, suicide attempt by multiple drug overdose and poisoning by opiate or related narcotic Lab Data Labs: Lab Results 01/11/23 01/11/23 01/11/23 Range/Units 16:46 16:46 16:50 WBC 9.2 (4.5-11.0) X10^3/uL RBC 4.56 (4.0-5.2) X10^6/uL Hgb 13.9 (12.0-16.0) g/dL Hct 42.5 (36-46) % MCV 93.3 (80-100) fL MCH 30.6 (26-34) PG MCHC 32.8 (30-36) % RDW 15.0 H (11.6-14.8) % Plt Count 278 (150-400) X10^3/uL Neut % (Auto) 65.1 (50-75) % Lymph % (Auto) 28.4 (25-40) % Wetzel % (Auto) 5.5 (3-14) % Eos % (Auto) 0.5 L (2-4) % Baso % (Auto) 0.5 (0-2) % Neut # (Auto) 6000 (7647-7266) /uL Lymph # (Auto) 2600 (4103-9903) /uL Wetzel # (Auto) 500 (0-900) /uL Eos # (Auto) 0 (0-450) /uL Baso # (Auto) 0 (0-100) /uL PT 12.2 (9.4-12.5) SECONDS INR 1.1 (0.9-1.3) ABG Sample Site ABG pH (7.35-7.45) ABG pCO2 (35-45) mmHg ABG pO2 (80-100) mmHg ABG HCO3 (23-27) mmol/L ABG Total CO2 (23-27) mmol/L ABG O2 Saturation (95-100) % ABG Base Excess (-2-3) mmol/L FiO2 Sodium 141 (137-145) mmol/L Potassium 3.5 (3.4-5.1) mmol/L Chloride 110 H (98-107) mmol/L Carbon Dioxide 22 (22-32) mmol/L BUN 9 (7-17) mg/dL Creatinine 0.72 (0.52-1.04) mg/dL Estimated GFR > 60 (>60) mL/min BUN/Creatinine Ratio 12.5 (6-22) Glucose 85 (70-100) mg/dL Lactate 2.5 H (0.7-2.1) mmol/L Calcium 9.2 (8.4-10.2) mg/dL Total Bilirubin 0.6 (0.2-1.3) mg/dL Conjugated Bilirubin 0.0 (0.0-0.3) md/dL Unconjugated Bilirubin 0.3 (0.0-1.1) mg/dL AST 43 H (14-36) IU/L ALT 28 (<35) IU/L Alkaline Phosphatase 66 (38-126) U/L Total Creatine Kinase 32 (30-135) U/L CK-MB (CK-2) <1.0 (0.0-5.3) ng/mL Troponin I < 0.012 (0.01-0.034) ng/mL Total Protein 7.2 (6.3-8.2) g/dL Albumin 3.8 (3.5-5.0) g/dL Globulin 3.4 (1.7-4.1) g/dL Albumin/Globulin Ratio 1.1 (1.0-2.8) Lipase 84 (23-300) U/L Salicylates < 1.0 (<20) mg/dL U Opiates 300ng/mL cut Positive H (Negative) Ur Oxycodone Screen Positive H (Negative) Urine Methadone Screen Negative (Negative) Acetaminophen 50 H 50 H (10-30) ug/mL Ur Barbiturates Screen Negative (Negative) U Tricyclic Antidepress Positive H (Negative) Ur Phencyclidine Scrn Negative (Negative) Ur Amphetamines Screen Negative (Negative) U Methamphetamines Scrn Negative (Negative) Ur MDMA Scrn (Ecstasy) Negative (Negative) U Benzodiazepines Scrn Positive H (Negative) Urine Cocaine Screen Negative (Negative) U Marijuana (THC) Screen Positive H (Negative) Ethyl Alcohol 14 H ( - 10) mg/dL 01/11/23 01/11/23 01/11/23 Range/Units 17:27 18:44 19:10 WBC (4.5-11.0) X10^3/uL RBC (4.0-5.2) X10^6/uL Hgb (12.0-16.0) g/dL Hct (36-46) % MCV (80-100) fL MCH (26-34) PG MCHC (30-36) % RDW (11.6-14.8) % Plt Count (150-400) X10^3/uL Neut % (Auto) (50-75) % Lymph % (Auto) (25-40) % Wetzel % (Auto) (3-14) % Eos % (Auto) (2-4) % Baso % (Auto) (0-2) % Neut # (Auto) (7414-9124) /uL Lymph # (Auto) (5828-1271) /uL Wetzel # (Auto) (0-900) /uL Eos # (Auto) (0-450) /uL Baso # (Auto) (0-100) /uL PT (9.4-12.5) SECONDS INR (0.9-1.3) ABG Sample Site Left radial Right radial ABG pH 7.21 L* 7.29 L* (7.35-7.45) ABG pCO2 46.9 H 39.7 (35-45) mmHg ABG pO2 79 L 94 (80-100) mmHg ABG HCO3 19 L 19 L (23-27) mmol/L ABG Total CO2 20 L 20 L (23-27) mmol/L ABG O2 Saturation 93 L 96 (95-100) % ABG Base Excess -9.0 L -7.0 L (-2-3) mmol/L FiO2 32 40 Sodium (137-145) mmol/L Potassium (3.4-5.1) mmol/L Chloride (98-107) mmol/L Carbon Dioxide (22-32) mmol/L BUN (7-17) mg/dL Creatinine (0.52-1.04) mg/dL Estimated GFR (>60) mL/min BUN/Creatinine Ratio (6-22) Glucose (70-100) mg/dL Lactate 1.9 (0.7-2.1) mmol/L Calcium (8.4-10.2) mg/dL Total Bilirubin (0.2-1.3) mg/dL Conjugated Bilirubin (0.0-0.3) md/dL Unconjugated Bilirubin (0.0-1.1) mg/dL AST (14-36) IU/L ALT (<35) IU/L Alkaline Phosphatase (38-126) U/L Total Creatine Kinase (30-135) U/L CK-MB (CK-2) (0.0-5.3) ng/mL Troponin I (0.01-0.034) ng/mL Total Protein (6.3-8.2) g/dL Albumin (3.5-5.0) g/dL Globulin (1.7-4.1) g/dL Albumin/Globulin Ratio (1.0-2.8) Lipase (23-300) U/L Salicylates (<20) mg/dL U Opiates 300ng/mL cut (Negative) Ur Oxycodone Screen (Negative) Urine Methadone Screen (Negative) Acetaminophen (10-30) ug/mL Ur Barbiturates Screen (Negative) U Tricyclic Antidepress (Negative) Ur Phencyclidine Scrn (Negative) Ur Amphetamines Screen (Negative) U Methamphetamines Scrn (Negative) Ur MDMA Scrn (Ecstasy) (Negative) U Benzodiazepines Scrn (Negative) Urine Cocaine Screen (Negative) U Marijuana (THC) Screen (Negative) Ethyl Alcohol ( - 10) mg/dL Point of Care Testing Glucose POC 86 MDM Narrative Medical decision making narrative: 48-year-old female presents with reported intentional overdose there is a piece of paper that is states she has DNR paperwork and that says I am sorry. It has contact information. There is a but not a POLST form. It appears to be a DNR/DNI but appears to possibly be a copy is hand written in portions. Poison control recommendations. Case 1. [id number]. Recommend labs, EKG, PT/INR CMP. Tylenol level. Recommend starting neck if Tylenol level is detected. Expect for decreased [facility] CENTER ASSISTANT and respirations, patient may have increasing sedation and require intubation. Can perform activated charcoal if intubated. Minimum 4 hour monitoring post Narcan. 1 L IV bolus then followed by 2 times maintenance at 150 mL/hour. Recommend EKG Q 2 hours x3 looking for widened QRS or QT. Recommends sodium bicarb if QRS greater than 110 and Mag 1-2 g if QTC greater than 500 Law enforcement arrived. Was patient was found at [facility], patient had paperwork at next to her. Medications in his seat, she also had shotgun in the vehicle. I spoke with her sister who states she is been suicidal and had hospitalizations on and off for the last several years and recently diagnosed with borderline personality. She states her sister had mentioned filling out DNR paperwork but has been back and forth in terms of whether or not she wanted a DNR or not. Sister suspect that this is more related to her overdose. We discussed paperwork notes gastric lavage which is consistent with planning and overdose. Sister states family is in agreement that they do not wish on her DNR. Think this is very appropriate as it seems like it was planned by the patient and she clearly has not intentional overdose. Patient had repeat EKG QRS has lengthened to 114 QTC is greater than sodium bicarb ordered and magnesium 2 g were ordered. Patient had elevated Tylenol level, NAC High-dose dosing. Repeat 4 hour level ordered as well. Patient's blood pressure has decreased had received a L bolus is receiving a 2nd but Levophed ordered as well. Plan for intubation patient has been maintaining oxygenation but will likely have increasing sedation. Patient signed out to Dr. Mullen who assumes care. 1800 ([place]) -shortly after assuming care of this patient mental status deteriorated and she was no longer responsive, even to sternal rub. Decision made to intubate patient emergently for airway protection and improved oxygenation. Patient was intubated per procedure note. I attempted to place a central line in the left IJ, however despite easy threading of the guidewire on confirmation chest x-ray the tip of the catheter appears to loop around and project cephalad. I attempted to replace the central line, however I was unable to advance the guidewire. Patient's blood pressure actually was hypertensive on Levophed, and decision made to stop this drug. Patient does have multiple well placed peripheral IVs in the AC or higher, and so if she needs Levophed overnight these can be run until a PICC line can possibly be placed in the morning. Activated charcoal pushed through NG tube. Serial EKGs were obtained that showed stable QTC and stable QRS. She was subsequently admitted to the ICU in guarded condition. Critical Care Time <Marycruz Mullen MD - Last Filed: 01/12/23 02:27> Critical Care Time Critical Care Time: Yes Total Critical Care Time: 32 Attestation: Polysubstance overdose from suicide attempt requiring numerous i antidotes and close discussion with poison control. Hemodynamic instability requiring pressor support, respiratory failure requiring intubation, frequent hemodynamic reassessments. Discharge Plan Departure Patient Disposition: Admitted As Inpatient Clinical Impression: Metabolic acidosis Overdose by acetaminophen Qualifiers: Encounter type: initial encounter Injury intent: intentional self-harm Q ualified Code(s): T39.1X2A - Poisoning by 4-Aminophenol derivatives, intentional self-harm, initial encounter Narcotic overdose Qualifiers: Encounter type: initial encounter Injury intent: intentional self-harm Q ualified Code(s): T40.602A - Poisoning by unspecified narcotics, intentional self-harm, initial encounter Benzodiazepine (tranquilizer) overdose Qualifiers: Encounter type: initial encounter Injury intent: intentional self-harm Q ualified Code(s): T42.4X2A - Poisoning by benzodiazepines, intentional self- harm, initial encounter Suicide attempt by inadequate means Qualifiers: Encounter type: initial encounter Qualified Code(s): X83.8XXA - Intentional self-harm by other specified means, initial encounter Admit Date/Time: 01/11/23 20:12 Admit Provider: Gege Oliveros
[2023-01-11] MEDS: NALOXONE 0.4 MG/ML VIAL IV (17:00)
[2023-01-11] MEDS: SODIUM CHLORIDE 0.9% 1,000 ML 1000 ML IV ×2 (17:12→17:30)
[2023-01-11 17:16] LABS: Add Manual Diff / Slide Review NO; Basophils Absolute Auto 0 /uL (0-100); Basophils Percent Auto 0.5 % (0-2); Eosinophils Absolute Auto 0 /uL (0-450); Eosinophils Percent Auto 0.5 % (2-4); Hematocrit 42.5 % (36-46); Hemoglobin 13.9 g/dL (12.0-16.0); Lymphocytes Absolute Auto 2600 /uL (1100-4500); Lymphocytes Percent Auto 28.4 % (25-40); Mean Corpuscular HGB Conc 32.8 % (30-36); Mean Corpuscular Hemoglobin 30.6 PG (26-34); Mean Corpuscular Volume 93.3 fL (80-100); Monocytes Absolute Auto 500 /uL (0-900); Monocytes Percent Auto 5.5 % (3-14); Neutrophils Absolute Auto 6000 /uL (1500-7000); Neutrophils Percent Auto 65.1 % (50-75); Platelet Count 278 X10^3/uL (150-400); Red Blood Cell Count 4.56 X10^6/uL (4.0-5.2); White Blood Cell Count 9.2 X10^3/uL (4.5-11.0)
[2023-01-11 17:18] LABS: INR 1.1 (0.9-1.3); Prothrombin Time 12.2 SECONDS (9.4-12.5)
[2023-01-11 17:22] LABS: UR Morphine/Opiate cutoff 300 Positive (Negative); Urine Amphetamines Negative (Negative); Urine Cocaine Negative (Negative); Urine Methamphetamines Negative (Negative); Urine Phencyclidine Negative (Negative); Urine Tetrahydrocannabinol Positive (Negative)
[2023-01-11 17:22] LABS: Acetaminophen 50 ug/mL (10-30); Alanine Aminotransferase 28 IU/L (<35); Albumin 3.8 g/dL (3.5-5.0); Albumin Globulin Ratio 1.1 (1.0-2.8); Alkaline Phosphatase 66 U/L (38-126); Aspartate Aminotransferase 43 IU/L (14-36); BUN Creatinine Ratio 12.5 (6-22); Bilirubin Total 0.6 mg/dL (0.2-1.3); Bilirubin Unconjugated 0.3 mg/dL (0.0-1.1); Blood Urea Nitrogen 9 mg/dL (7-17); Calcium 9.2 mg/dL (8.4-10.2); Carbon Dioxide 22 mmol/L (22-32); Chloride 110 mmol/L (98-107); Creatine Kinase 32 U/L (30-135); Estimated Glomerular Filt Rate > 60 mL/min (>60); Ethanol (ETOH) 14 mg/dL; Globulin 3.4 g/dL (1.7-4.1); Glucose 85 mg/dL (70-100); HEMOLYSIS 19 (0-50); Lactate (Lactic Acid) 2.5 mmol/L (0.7-2.1); Lipase 84 U/L (23-300); Potassium 3.5 mmol/L (3.4-5.1); Salicylate < 1.0 mg/dL (<20); Sodium 141 mmol/L (137-145); Total Protein 7.2 g/dL (6.3-8.2)
[2023-01-11 17:23] LABS: Urine Barbiturates Negative (Negative); Urine Benzodiazepines Positive (Negative); Urine MDMA Negative (Negative); Urine Methadone Negative (Negative); Urine Oxycodone Positive (Negative); Urine Tricyclic Antidepressant Positive (Negative)
[2023-01-11] MEDS: NOREPINEPHRINE BITARTRATE/D5W 4 MG/250 ML PLAST..BAG 47.967 MG IV (17:30)
[2023-01-11 17:32] LABS: Troponin I < 0.012 ng/mL (0.01-0.034)
[2023-01-11 17:36] LABS: Blood Gas Collection Site Left Radial; Fractionated Inspired Oxygen 32; HCO3 ABG 19 mmol/L (23-27); Oxygen Saturation ABG 93 % (95-100); PCO2 ABG 46.9 mmHg (35-45); PO2 ABG 79 mmHg (80-100); TCO2 ABG 20 mmol/L (23-27); pH ABG 7.21 (7.35-7.45)
[2023-01-11 17:37] LABS: Allen Test for ABG Passed? Yes, Passed
[2023-01-11] MEDS: NALOXONE 2 MG in SODIUM CHLORIDE 0.9% 500 ML 62.5 MG IV (17:40)
[2023-01-11] MEDS: SODIUM BICARB 8.4% SYRINGE 130 MEQ IV (17:59)
[2023-01-11] MEDS: MAGNESIUM SULFATE 2 GM/50 ML PIGGYBACK IV (18:03)
[2023-01-11] MEDS: ETOMIDATE 2 MG/ML 10 ML VIAL 20 MG IV (18:11)
[2023-01-11] MEDS: ROCURONIUM 100 MG/10 ML VIAL 150 MG IV (18:12)
[2023-01-11 18:17] LABS: Acetaminophen 50 ug/mL (10-30)
[2023-01-11] MEDS: ACTIVATED CHARCOAL/SORBIT 50 GM/240 ML 100 GM TUBE (18:46)
[2023-01-11 18:54] LABS: Reflexed Lactate in 2 Hours Y
[2023-01-11 18:56] LABS: pH ABG 7.29 (7.35-7.45)
[2023-01-11 18:57] LABS: Allen Test for ABG Passed? Yes, Passed; Blood Gas Collection Site Right Radial; Fractionated Inspired Oxygen 40; HCO3 ABG 19 mmol/L (23-27); Oxygen Saturation ABG 96 % (95-100); PCO2 ABG 39.7 mmHg (35-45); PO2 ABG 94 mmHg (80-100); TCO2 ABG 20 mmol/L (23-27)
[2023-01-11] MEDS: propofoL 1,000 MG/100 ML VIAL 3.8 MG IV (19:16)
[2023-01-11 19:31] LABS: Lactate 2HR (Lactic Acid Rflx) 1.9 mmol/L (0.7-2.1)
[2023-01-11] MEDS: propofoL 1,000 MG/100 ML VIAL 7.674 MG IV (20:32)
--- NOTE | 2023-01-11 21:05 | PC.NURSE ---
Poison control called for update, based on information, it is suggested to repeat EKG and if QRS >110ms repeat 2 amps of sodium bicarb and repeat EKG 15 min. post Sodium Bicarb. If QRS <110ms repeat EKG Q4hrs. Administer 50g activated charcoal, see orders.
[2023-01-11] MEDS: ACTIVATED CHARCOAL 50 GM/240 ML PO (21:25)
--- NOTE | 2023-01-11 21:50 | PC.NURSE ---
Activated charcoal was instilled by NG tube. After 1 hour the provider was asked if the charcoal needed to be suctioned out and she stated that we could take it out approx 1000mls was suctioned out into the canister. Poison control informed us that the charcoal should not have come out. They recommended that we instill an additional 50grams. Provider aware and more charcoal was ordered.
--- NOTE | 2023-01-11 22:47 | P.HP_ITS ---
History of Present Illness History of Present Illness Date Patient Seen: 01/11/23 Time Patient Seen: 22:47 Date of Onset of Symptoms: 01/11/23 Chief complaint: OD Narrative: 48 year old here with multisubstance overdose via ambulance and intubated for airway protection as she was unresponsive and did not respond to narcan. The recent history is that she texted someone that she had overdosed to kill herself and texted she took Vicodin, Percocet, Valium, Restoril, Nyquil, Ambien and Jeff's hard lemonade. Evaluation in the ED was positive for UDS with opiates, benzodiazipines, marijuana and TCA. She was noted to have prolonged QT and given bicarbonate with improvement. She also had a tylenol level of 50 and was started on NAC per poison control and a repeat tylenol level has been ordered. The original LFTS are not elevated. She has evidently tried to kill herself in the past per the ED. The patient is currently sedated and not able to participate in her history. After intubation she had a brief episode of hypotension (likely due to etomidate with all the substances on board) but this resolved after levophed for a short period. [facility] Medical History Morbid obesity with body mass index (BMI) of 50.0 to 59.9 in adult (~09/26/17) ADD (attention deficit disorder) without hyperactivity Osteoarthritis Migraine Irritable bowel syndrome (IBS) Fibromyalgia Asthma Atherosclerosis of abdominal aorta Type 2 diabetes mellitus Depression Anxiety Primary insomnia Snoring Nocturnal hypoxemia Obstructive sleep apnea of adult Meds Home Medications and Allergies Home Medications Medication Instructions Recorded Confirmed Type OMEPRAZOLE 20 mg PO Q DAY ##0 11/23/09 History Allergies Allergy/AdvReac Type Severity Reaction Status Date / Time No Allergy Information Allergy Verified 01/11/23 22:44 Available Review of Systems Review of Systems Narrative: unable to obtain Exam Vital Signs (past 8 hours): - 01/11/23 16:46 01/11/23 17:00 01/11/23 17:05 Temperature 96.8 F L Pulse Rate 73 79 72 Respiratory Rate 17 17 Blood Pressure 136/90 Pulse Oximetry 95 98 91 Oxygen Delivery Method Room Air Oxygen Flow Rate Fraction of Inspired Oxygen 01/11/23 17:05 01/11/23 17:05 01/11/23 17:10 Temperature Pulse Rate 77 Respiratory Rate 17 Blood Pressure 99/59 L 91/54 L Pulse Oximetry 94 Oxygen Delivery Method Oxygen Flow Rate Fraction of Inspired Oxygen 01/11/23 17:10 01/11/23 17:17 01/11/23 17:17 Temperature Pulse Rate 75 71 Respiratory Rate 18 16 Blood Pressure 101/59 L Pulse Oximetry 95 96 Oxygen Delivery Method Oxygen Flow Rate Fraction of Inspired Oxygen 01/11/23 17:20 01/11/23 17:20 01/11/23 17:25 Temperature Pulse Rate 72 72 Respiratory Rate 17 16 Blood Pressure 103/60 Pulse Oximetry 95 96 Oxygen Delivery Method Oxygen Flow Rate Fraction of Inspired Oxygen 01/11/23 17:25 01/11/23 17:30 01/11/23 17:30 Temperature Pulse Rate 71 Respiratory Rate 17 Blood Pressure 101/56 L 89/59 L Pulse Oximetry 96 Oxygen Delivery Method Oxygen Flow Rate Fraction of Inspired Oxygen 01/11/23 17:30 01/11/23 17:33 01/11/23 17:33 Temperature Pulse Rate 60 71 Respiratory Rate 10 L 17 Blood Pressure 75/50 L 84/49 L Pulse Oximetry 100 97 Oxygen Delivery Method Nasal Cannula Oxygen Flow Rate 3 Fraction of Inspired Oxygen 01/11/23 17:35 01/11/23 17:35 01/11/23 17:40 Temperature Pulse Rate 71 71 Respiratory Rate 17 15 Blood Pressure 81/42 L Pulse Oximetry 96 96 Oxygen Delivery Method Oxygen Flow Rate Fraction of Inspired Oxygen 01/11/23 17:40 01/11/23 17:45 01/11/23 17:45 Temperature Pulse Rate 68 Respiratory Rate 15 Blood Pressure 81/47 L 78/48 L Pulse Oximetry 97 Oxygen Delivery Method Oxygen Flow Rate Fraction of Inspired Oxygen 01/11/23 17:55 01/11/23 18:00 01/11/23 18:03 Temperature Pulse Rate 52 L 53 L 52 L Respiratory Rate 15 15 14 Blood Pressure 124/82 133/87 Pulse Oximetry 96 96 95 Oxygen Delivery Method Nasal Cannula Nasal Cannula Oxygen Flow Rate Fraction of Inspired Oxygen 01/11/23 18:05 01/11/23 18:05 01/11/23 18:09 Temperature Pulse Rate 54 L 49 L Respiratory Rate 14 20 Blood Pressure 122/75 153/90 H Pulse Oximetry 95 100 Oxygen Delivery Method Oxygen Flow Rate Fraction of Inspired Oxygen 01/11/23 18:10 01/11/23 18:10 01/11/23 18:12 Temperature Pulse Rate 49 L 65 Respiratory Rate 14 14 Blood Pressure 153/90 H Pulse Oximetry 97 97 Oxygen Delivery Method Oxygen Flow Rate Fraction of Inspired Oxygen 01/11/23 18:12 01/11/23 18:13 01/11/23 18:15 Temperature Pulse Rate 49 L Respiratory Rate Blood Pressure 152/89 H 153/90 H 209/108 H Pulse Oximetry 96 Oxygen Delivery Method Oxygen Flow Rate Fraction of Inspired Oxygen 01/11/23 18:15 01/11/23 18:17 01/11/23 18:17 Temperature Pulse Rate 88 82 Respiratory Rate 13 19 Blood Pressure 185/91 H Pulse Oximetry 100 100 Oxygen Delivery Method Oxygen Flow Rate Fraction of Inspired Oxygen 01/11/23 18:21 01/11/23 18:21 01/11/23 18:25 Temperature Pulse Rate 68 65 Respiratory Rate 20 20 Blood Pressure 144/80 H Pulse Oximetry 99 98 Oxygen Delivery Method Oxygen Flow Rate Fraction of Inspired Oxygen 01/11/23 18:25 01/11/23 18:30 01/11/23 18:30 Temperature Pulse Rate 69 Respiratory Rate 20 Blood Pressure 116/70 122/69 Pulse Oximetry 98 Oxygen Delivery Method Oxygen Flow Rate Fraction of Inspired Oxygen 01/11/23 18:35 01/11/23 18:35 01/11/23 18:40 Temperature Pulse Rate 62 Respiratory Rate 20 Blood Pressure 135/80 137/84 Pulse Oximetry 98 Oxygen Delivery Method Oxygen Flow Rate Fraction of Inspired Oxygen 01/11/23 18:40 01/11/23 18:45 01/11/23 18:45 Temperature Pulse Rate 61 59 L Respiratory Rate 20 20 Blood Pressure 136/89 Pulse Oximetry 98 98 Oxygen Delivery Method Oxygen Flow Rate Fraction of Inspired Oxygen 01/11/23 18:50 01/11/23 18:50 01/11/23 18:55 Temperature Pulse Rate 60 57 L Respiratory Rate 20 20 Blood Pressure 151/92 H Pulse Oximetry 98 98 Oxygen Delivery Method Oxygen Flow Rate Fraction of Inspired Oxygen 01/11/23 18:55 01/11/23 19:00 01/11/23 19:00 Temperature Pulse Rate 57 L Respiratory Rate 20 Blood Pressure 142/96 H 135/90 Pulse Oximetry 98 Oxygen Delivery Method Oxygen Flow Rate Fraction of Inspired Oxygen 01/11/23 19:05 01/11/23 19:05 01/11/23 19:10 Temperature Pulse Rate 58 L 57 L Respiratory Rate 20 20 Blood Pressure 140/96 H Pulse Oximetry 98 98 Oxygen Delivery Method Oxygen Flow Rate Fraction of Inspired Oxygen 01/11/23 19:10 01/11/23 19:15 01/11/23 19:15 Temperature Pulse Rate 94 H Respiratory Rate 20 Blood Pressure 141/94 H 198/117 H Pulse Oximetry 98 Oxygen Delivery Method Oxygen Flow Rate Fraction of Inspired Oxygen 01/11/23 19:20 01/11/23 19:20 01/11/23 19:25 Temperature Pulse Rate 69 85 Respiratory Rate 20 20 Blood Pressure 163/89 H Pulse Oximetry 98 97 Oxygen Delivery Method Oxygen Flow Rate Fraction of Inspired Oxygen 01/11/23 19:26 01/11/23 19:26 01/11/23 19:30 Temperature Pulse Rate 84 58 L Respiratory Rate 20 20 Blood Pressure 186/106 H Pulse Oximetry 97 99 Oxygen Delivery Method Oxygen Flow Rate Fraction of Inspired Oxygen 01/11/23 19:30 01/11/23 19:35 01/11/23 19:35 Temperature Pulse Rate 104 H Respiratory Rate 23 Blood Pressure 160/94 H 195/117 H Pulse Oximetry 98 Oxygen Delivery Method Oxygen Flow Rate Fraction of Inspired Oxygen 01/11/23 19:40 01/11/23 19:41 01/11/23 19:41 Temperature Pulse Rate 59 L 58 L Respiratory Rate 20 23 Blood Pressure 152/81 H Pulse Oximetry 98 99 Oxygen Delivery Method Oxygen Flow Rate Fraction of Inspired Oxygen 01/11/23 19:45 01/11/23 19:45 01/11/23 19:50 Temperature Pulse Rate 69 88 Respiratory Rate 23 24 Blood Pressure 143/83 H Pulse Oximetry 100 95 Oxygen Delivery Method Oxygen Flow Rate Fraction of Inspired Oxygen 01/11/23 19:51 01/11/23 19:51 01/11/23 19:55 Temperature Pulse Rate 72 Respiratory Rate 20 Blood Pressure 180/98 H 172/113 H Pulse Oximetry 95 Oxygen Delivery Method Oxygen Flow Rate Fraction of Inspired Oxygen 01/11/23 19:55 01/11/23 20:00 01/11/23 20:00 Temperature Pulse Rate 80 84 Respiratory Rate 21 20 Blood Pressure 152/86 H Pulse Oximetry 89 L 99 Oxygen Delivery Method Oxygen Flow Rate Fraction of Inspired Oxygen 01/11/23 20:05 01/11/23 20:05 01/11/23 20:10 Temperature Pulse Rate 75 113 H Respiratory Rate 20 22 Blood Pressure 142/84 H Pulse Oximetry 92 97 Oxygen Delivery Method Oxygen Flow Rate Fraction of Inspired Oxygen 01/11/23 20:11 01/11/23 20:11 01/11/23 20:15 Temperature Pulse Rate 114 H 76 Respiratory Rate 24 20 Blood Pressure 202/130 H Pulse Oximetry 96 98 Oxygen Delivery Method Oxygen Flow Rate Fraction of Inspired Oxygen 01/11/23 20:16 01/11/23 20:16 01/11/23 20:20 Temperature Pulse Rate 76 70 Respiratory Rate 20 20 Blood Pressure 156/74 H Pulse Oximetry 98 98 Oxygen Delivery Method Oxygen Flow Rate Fraction of Inspired Oxygen 01/11/23 20:20 01/11/23 20:21 01/11/23 20:25 Temperature Pulse Rate 70 Respiratory Rate 20 Blood Pressure 142/74 H Pulse Oximetry 99 Oxygen Delivery Method Oxygen Flow Rate Fraction of Inspired Oxygen 40 01/11/23 20:25 01/11/23 20:30 01/11/23 20:31 Temperature Pulse Rate 108 H 113 H Respiratory Rate 25 H 27 H Blood Pressure 149/84 H Pulse Oximetry 94 94 Oxygen Delivery Method Oxygen Flow Rate Fraction of Inspired Oxygen 01/11/23 20:31 01/11/23 20:35 01/11/23 20:35 Temperature Pulse Rate 80 Respiratory Rate 20 Blood Pressure 170/101 H 134/70 Pulse Oximetry 97 Oxygen Delivery Method Oxygen Flow Rate Fraction of Inspired Oxygen 01/11/23 20:40 01/11/23 20:40 01/11/23 20:45 Temperature Pulse Rate 82 84 Respiratory Rate 20 20 Blood Pressure 142/82 H Pulse Oximetry 94 95 Oxygen Delivery Method Oxygen Flow Rate Fraction of Inspired Oxygen 01/11/23 20:45 01/11/23 20:50 01/11/23 20:50 Temperature Pulse Rate 79 Respiratory Rate 20 Blood Pressure 140/79 133/77 Pulse Oximetry 93 Oxygen Delivery Method Oxygen Flow Rate Fraction of Inspired Oxygen 01/11/23 20:55 01/11/23 20:55 01/11/23 21:00 Temperature Pulse Rate 80 78 Respiratory Rate 20 20 Blood Pressure 132/76 Pulse Oximetry 94 Oxygen Delivery Method Oxygen Flow Rate Fraction of Inspired Oxygen 01/11/23 21:00 01/11/23 21:05 01/11/23 21:05 Temperature Pulse Rate 76 Respiratory Rate 20 Blood Pressure 116/73 113/76 Pulse Oximetry 94 Oxygen Delivery Method Oxygen Flow Rate Fraction of Inspired Oxygen 01/11/23 21:10 01/11/23 21:10 01/11/23 21:15 Temperature Pulse Rate 72 72 Respiratory Rate 21 20 Blood Pressure 133/72 Pulse Oximetry 93 93 Oxygen Delivery Method Oxygen Flow Rate Fraction of Inspired Oxygen 01/11/23 21:15 01/11/23 21:20 01/11/23 21:20 Temperature Pulse Rate 73 Respiratory Rate 20 Blood Pressure 122/68 121/70 Pulse Oximetry 94 Oxygen Delivery Method Oxygen Flow Rate Fraction of Inspired Oxygen 01/11/23 21:47 01/11/23 21:50 01/11/23 21:55 Temperature Pulse Rate 66 65 103 H Respiratory Rate 20 17 16 Blood Pressure Pulse Oximetry 97 98 91 Oxygen Delivery Method Oxygen Flow Rate Fraction of Inspired Oxygen 01/11/23 21:59 01/11/23 22:00 01/11/23 22:00 Temperature Pulse Rate 80 75 Respiratory Rate 18 18 Blood Pressure 142/90 H Pulse Oximetry 95 95 Oxygen Delivery Method Oxygen Flow Rate Fraction of Inspired Oxygen 01/11/23 22:05 01/11/23 22:10 01/11/23 22:15 Temperature Pulse Rate 67 66 69 Respiratory Rate 16 16 16 Blood Pressure Pulse Oximetry 100 96 95 Oxygen Delivery Method Oxygen Flow Rate Fraction of Inspired Oxygen 01/11/23 22:20 01/11/23 22:25 01/11/23 22:30 Temperature 96.6 F L Pulse Rate 69 68 Respiratory Rate 16 16 Blood Pressure 106/63 Pulse Oximetry 96 96 Oxygen Delivery Method Oxygen Flow Rate Fraction of Inspired Oxygen 01/11/23 22:30 Temperature Pulse Rate 68 Respiratory Rate 16 Blood Pressure Pulse Oximetry 96 Oxygen Delivery Method Oxygen Flow Rate Fraction of Inspired Oxygen Fraction of Inspired Oxygen 40 Oxygen Delivery Method Nasal Cannula Oxygen Flow Rate 3 Narrative Exam Narrative: Gege Oliveros MD in [facility] has seen Briannirali Adeel in [place] using all aspects of audio and video telemedicine with nursing assistance Const Nutritional Appearance: obese HENMT Other: intubated, no facial trauma, NCAT Eyes Sclera: sclerae normal Pupils: PERRL and other (sluggish, 3mm) Chest Chest: normal inspection of the chest Resp Auscultation: other (coarse thoughout, ventilated RR 16) Cardio Rate: regular rate Rhythm: regular rhythm Heart Sounds: S1 normal and S2 normal Pulses: radial pulses present GI Palpation: soft Auscultation: normal bowel sounds Skin Other: small bruise on left leg, no rashes Neuro Other: intubated and sedated, does have tone bilaterally Psych Other: cannot currently assess but suicidal and +attempt Objective ECG Impression: SR with prolonged OT Labs 01/11/23 16:46 01/11/23 16:46 Labs: Laboratory Results - last 24 hr 01/11/23 01/11/23 01/11/23 16:46 16:46 16:50 WBC 9.2 RBC 4.56 Hgb 13.9 Hct 42.5 MCV 93.3 MCH 30.6 MCHC 32.8 RDW 15.0 H Plt Count 278 Neut % (Auto) 65.1 Lymph % (Auto) 28.4 [place] % (Auto) 5.5 Eos % (Auto) 0.5 L Baso % (Auto) 0.5 Neut # (Auto) 6000 Lymph # (Auto) 2600 [place] # (Auto) 500 Eos # (Auto) 0 Baso # (Auto) 0 PT 12.2 INR 1.1 ABG Sample Site ABG pH ABG pCO2 ABG pO2 ABG HCO3 ABG Total CO2 ABG O2 Saturation ABG Base Excess FiO2 Sodium 141 Potassium 3.5 Chloride 110 H Carbon Dioxide 22 BUN 9 Creatinine 0.72 Estimated GFR > 60 BUN/Creatinine Ratio 12.5 Glucose 85 Lactate 2.5 H Calcium 9.2 Total Bilirubin 0.6 Conjugated Bilirubin 0.0 Unconjugated Bilirubin 0.3 AST 43 H ALT 28 Alkaline Phosphatase 66 Total Creatine Kinase 32 Troponin I < 0.012 Total Protein 7.2 Albumin 3.8 Globulin 3.4 Albumin/Globulin Ratio 1.1 Lipase 84 Salicylates < 1.0 U Opiates 300ng/mL cut Positive H Ur Oxycodone Screen Positive H Urine Methadone Screen Negative Acetaminophen 50 H 50 H Ur Barbiturates Screen Negative U Tricyclic Antidepress Positive H Ur Phencyclidine Scrn Negative Ur Amphetamines Screen Negative U Methamphetamines Scrn Negative Ur MDMA Scrn (Ecstasy) Negative U Benzodiazepines Scrn Positive H Urine Cocaine Screen Negative U Marijuana (THC) Screen Positive H Ethyl Alcohol 14 H 01/11/23 01/11/23 01/11/23 17:27 18:44 19:10 WBC RBC Hgb Hct MCV MCH MCHC RDW Plt Count Neut % (Auto) Lymph % (Auto) [place] % (Auto) Eos % (Auto) Baso % (Auto) Neut # (Auto) Lymph # (Auto) [place] # (Auto) Eos # (Auto) Baso # (Auto) PT INR ABG Sample Site Left radial Right radial ABG pH 7.21 L* 7.29 L* ABG pCO2 46.9 H 39.7 ABG pO2 79 L 94 ABG HCO3 19 L 19 L ABG Total CO2 20 L 20 L ABG O2 Saturation 93 L 96 ABG Base Excess -9.0 L -7.0 L FiO2 32 40 Sodium Potassium Chloride Carbon Dioxide BUN Creatinine Estimated GFR BUN/Creatinine Ratio Glucose Lactate 1.9 Calcium Total Bilirubin Conjugated Bilirubin Unconjugated Bilirubin AST ALT Alkaline Phosphatase Total Creatine Kinase Troponin I Total Protein Albumin Globulin Albumin/Globulin Ratio Lipase Salicylates U Opiates 300ng/mL cut Ur Oxycodone Screen Urine Methadone Screen Acetaminophen Ur Barbiturates Screen U Tricyclic Antidepress Ur Phencyclidine Scrn Ur Amphetamines Screen U Methamphetamines Scrn Ur MDMA Scrn (Ecstasy) U Benzodiazepines Scrn Urine Cocaine Screen U Marijuana (THC) Screen Ethyl Alcohol Assessment & Plan Assessment and plan (1) Narcotic overdose: Qualifiers: Encounter type: initial encounter Injury intent: intentional self-harm Qualified Code(s): T40.602A - Poisoning by unspecified narcotics, intentional self-harm, initial encounter Status: Acute (2) Overdose by acetaminophen: Qualifiers: Encounter type: initial encounter Injury intent: intentional self-harm Qualified Code(s): T39.1X2A - Poisoning by 4-Aminophenol derivatives, intentional self-harm, initial encounter Status: Acute (3) Morbid obesity with body mass index (BMI) of 50.0 to 59.9 in adult: Status: Chronic (4) Suicide attempt: Status: Acute (5) Respiratory failure requiring intubation: Status: Acute Plan Respiratory failure requiring intubation underlying DARON precipitated by polysubstance overdose RT consult Iintensivist consult Ventilator TV 480 FIO2 40%, wean as possible PEEP 5 RR 16 Polysubstance overdose Did not respond to narcan alone currently on NAC drip per poison control follow LFTS first tylenol level 50, second ordered unclear tylenol burden also has benzos/opiates on board ETOH not high charcoal administered and supportive care Suicide attempt will need psychiatric care after medically stable DVT prophylaxis SCD add lovenox only if INR, plts remain stable
[2023-01-11] MEDS: DEXTROSE 5%-0.9% NS 1,000 ML 100 ML IV (23:00)
[2023-01-11 23:32] LABS: Add Manual Diff / Slide Review NO; Basophils Absolute Auto 100 /uL (0-100); Basophils Percent Auto 0.7 % (0-2); Eosinophils Absolute Auto 100 /uL (0-450); Eosinophils Percent Auto 1.3 % (2-4); Hematocrit 36.1 % (36-46); Hemoglobin 12.1 g/dL (12.0-16.0); INR 1.3 (0.9-1.3); Lymphocytes Absolute Auto 2700 /uL (1100-4500); Lymphocytes Percent Auto 35.2 % (25-40); Mean Corpuscular HGB Conc 33.5 % (30-36); Mean Corpuscular Hemoglobin 31.1 PG (26-34); Monocytes Absolute Auto 400 /uL (0-900); Neutrophils Absolute Auto 4400 /uL (1500-7000); Neutrophils Percent Auto 57.8 % (50-75); Platelet Count 250 X10^3/uL (150-400); Prothrombin Time 14.6 SECONDS (9.4-12.5); Red Blood Cell Count 3.88 X10^6/uL (4.0-5.2); Red Cell Distribution Width 14.9 % (11.6-14.8); White Blood Cell Count 7.6 X10^3/uL (4.5-11.0)
[2023-01-11 23:35] LABS: PTT Partial Thromboplastin Tim 30 SECONDS (25.1-36.5)
[2023-01-11 23:42] LABS: Acetaminophen 17 ug/mL (10-30)
--- NOTE | 2023-01-11 23:42 | PM.CN.EICU ---
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 Briefly, a 48 years old female who presented to ED via EMS after overdosing on multiple substances. She was reported to have overdosed on Vicodin, Percocet, Valium, respiratory, NyQuil, Ambien and Jeff's hard lemonade. On arrival to ER, UDS positive for opiates, benzodiazepines, marijuana, THC and TCA. She was noted prolonged QTc and received bicarbonate treatment with improvement in QTc. She was intubated for airway protection. Poison control was contacted and she was started on high-dose NAC protocol. Reportedly, patient had prior suicidal attempts as well. She was admitted to ICU for further management. She is on minimal vent settings with FiO2 30%, tidal volume 480cc, RR 16, PEEP 5. She is on low-dose propofol gtt., and IV fluids with D5 0.9 at 100cc/hr. She has been started on high-dose NAC. Hemoglobin stable and not requiring any vasopressors. Initial workup was unremarkable except lactic acid 2.5, slight elevated AST of 43 but patient of the LFTs were unremarkable. Salicylate level was less than 1.0. Acetaminophen level was high at 50. Ethyl alcohol level was high at 14. [facility] Medical History Morbid obesity with body mass index (BMI) of 50.0 to 59.9 in adult (~09/26/17) ADD (attention deficit disorder) without hyperactivity Osteoarthritis Migraine Irritable bowel syndrome (IBS) Fibromyalgia Asthma Atherosclerosis of abdominal aorta Type 2 diabetes mellitus Depression Anxiety Primary insomnia Snoring Nocturnal hypoxemia Obstructive sleep apnea of adult Current Medications Current Medications Medications: Home Medications OMEPRAZOLE 20 mg PO Q DAY ##0 11/23/09 [History] Visit Medications (administered) Generic Name Dose Route Start Last Admin Trade Name Freq PRN Reason Stop Dose Admin Sodium Chloride 1,000 mls @ 150 mls/hr 01/11/23 17:08 01/11/23 18:37 Normal Saline 0.9% IV Infused BOLUS PRN Infusion Fluid replacement Naloxone HCl 2 mg/ Sodium 500 mls @ 62.5 mls/hr 01/11/23 17:15 01/11/23 18:00 Chloride IV 0 mg/hr TITRATE TEE 0 mls/hr Infusion 0.25 MG/HR NOREPINEPHRINE BITARTRATE/D5W 4 mg in 250 mls @ 47.967 mls/hr 01/11/23 17:37 01/11/23 21:00 Levophed IV 0 mcg/kg/min TITRATE TEE 0 mls/hr Titration Protocol 0.1 MCG/KG/MIN Dextrose/Sodium Chloride 1,000 mls @ 100 mls/hr 01/11/23 20:15 01/11/23 23:00 Dextrose 5%-0.9% Ns IV 100 mls/hr CONT TEE Administration Propofol 1,000 mg in 100 mls @ 3.837 mls/hr 01/11/23 20:30 01/11/23 21:45 Propofol IV 25 mcg/kg/min TITRATE TEE 19.185 mls/hr Titration Protocol 5 MCG/KG/MIN Exam Vital Signs (past 8 hours): - 01/11/23 16:46 01/11/23 17:00 01/11/23 17:05 Temperature 96.8 F L Pulse Rate 73 79 72 Respiratory Rate 17 17 Blood Pressure 136/90 Pulse Oximetry 95 98 91 Oxygen Delivery Method Room Air Oxygen Flow Rate Fraction of Inspired Oxygen 01/11/23 17:05 01/11/23 17:05 01/11/23 17:10 Temperature Pulse Rate 77 Respiratory Rate 17 Blood Pressure 99/59 L 91/54 L Pulse Oximetry 94 Oxygen Delivery Method Oxygen Flow Rate Fraction of Inspired Oxygen 01/11/23 17:10 01/11/23 17:17 01/11/23 17:17 Temperature Pulse Rate 75 71 Respiratory Rate 18 16 Blood Pressure 101/59 L Pulse Oximetry 95 96 Oxygen Delivery Method Oxygen Flow Rate Fraction of Inspired Oxygen 01/11/23 17:20 01/11/23 17:20 01/11/23 17:25 Temperature Pulse Rate 72 72 Respiratory Rate 17 16 Blood Pressure 103/60 Pulse Oximetry 95 96 Oxygen Delivery Method Oxygen Flow Rate Fraction of Inspired Oxygen 01/11/23 17:25 01/11/23 17:30 01/11/23 17:30 Temperature Pulse Rate 71 Respiratory Rate 17 Blood Pressure 101/56 L 89/59 L Pulse Oximetry 96 Oxygen Delivery Method Oxygen Flow Rate Fraction of Inspired Oxygen 01/11/23 17:30 01/11/23 17:33 01/11/23 17:33 Temperature Pulse Rate 60 71 Respiratory Rate 10 L 17 Blood Pressure 75/50 L 84/49 L Pulse Oximetry 100 97 Oxygen Delivery Method Nasal Cannula Oxygen Flow Rate 3 Fraction of Inspired Oxygen 01/11/23 17:35 01/11/23 17:35 01/11/23 17:40 Temperature Pulse Rate 71 71 Respiratory Rate 17 15 Blood Pressure 81/42 L Pulse Oximetry 96 96 Oxygen Delivery Method Oxygen Flow Rate Fraction of Inspired Oxygen 01/11/23 17:40 01/11/23 17:45 01/11/23 17:45 Temperature Pulse Rate 68 Respiratory Rate 15 Blood Pressure 81/47 L 78/48 L Pulse Oximetry 97 Oxygen Delivery Method Oxygen Flow Rate Fraction of Inspired Oxygen 01/11/23 17:55 01/11/23 18:00 01/11/23 18:03 Temperature Pulse Rate 52 L 53 L 52 L Respiratory Rate 15 15 14 Blood Pressure 124/82 133/87 Pulse Oximetry 96 96 95 Oxygen Delivery Method Nasal Cannula Nasal Cannula Oxygen Flow Rate Fraction of Inspired Oxygen 01/11/23 18:05 01/11/23 18:05 01/11/23 18:09 Temperature Pulse Rate 54 L 49 L Respiratory Rate 14 20 Blood Pressure 122/75 153/90 H Pulse Oximetry 95 100 Oxygen Delivery Method Oxygen Flow Rate Fraction of Inspired Oxygen 01/11/23 18:10 01/11/23 18:10 01/11/23 18:12 Temperature Pulse Rate 49 L 65 Respiratory Rate 14 14 Blood Pressure 153/90 H Pulse Oximetry 97 97 Oxygen Delivery Method Oxygen Flow Rate Fraction of Inspired Oxygen 01/11/23 18:12 01/11/23 18:13 01/11/23 18:15 Temperature Pulse Rate 49 L Respiratory Rate Blood Pressure 152/89 H 153/90 H 209/108 H Pulse Oximetry 96 Oxygen Delivery Method Oxygen Flow Rate Fraction of Inspired Oxygen 01/11/23 18:15 01/11/23 18:17 01/11/23 18:17 Temperature Pulse Rate 88 82 Respiratory Rate 13 19 Blood Pressure 185/91 H Pulse Oximetry 100 100 Oxygen Delivery Method Oxygen Flow Rate Fraction of Inspired Oxygen 01/11/23 18:21 01/11/23 18:21 01/11/23 18:25 Temperature Pulse Rate 68 65 Respiratory Rate 20 20 Blood Pressure 144/80 H Pulse Oximetry 99 98 Oxygen Delivery Method Oxygen Flow Rate Fraction of Inspired Oxygen 01/11/23 18:25 01/11/23 18:30 01/11/23 18:30 Temperature Pulse Rate 69 Respiratory Rate 20 Blood Pressure 116/70 122/69 Pulse Oximetry 98 Oxygen Delivery Method Oxygen Flow Rate Fraction of Inspired Oxygen 01/11/23 18:35 01/11/23 18:35 01/11/23 18:40 Temperature Pulse Rate 62 Respiratory Rate 20 Blood Pressure 135/80 137/84 Pulse Oximetry 98 Oxygen Delivery Method Oxygen Flow Rate Fraction of Inspired Oxygen 01/11/23 18:40 01/11/23 18:45 01/11/23 18:45 Temperature Pulse Rate 61 59 L Respiratory Rate 20 20 Blood Pressure 136/89 Pulse Oximetry 98 98 Oxygen Delivery Method Oxygen Flow Rate Fraction of Inspired Oxygen 01/11/23 18:50 01/11/23 18:50 01/11/23 18:55 Temperature Pulse Rate 60 57 L Respiratory Rate 20 20 Blood Pressure 151/92 H Pulse Oximetry 98 98 Oxygen Delivery Method Oxygen Flow Rate Fraction of Inspired Oxygen 01/11/23 18:55 01/11/23 19:00 01/11/23 19:00 Temperature Pulse Rate 57 L Respiratory Rate 20 Blood Pressure 142/96 H 135/90 Pulse Oximetry 98 Oxygen Delivery Method Oxygen Flow Rate Fraction of Inspired Oxygen 01/11/23 19:05 01/11/23 19:05 01/11/23 19:10 Temperature Pulse Rate 58 L 57 L Respiratory Rate 20 20 Blood Pressure 140/96 H Pulse Oximetry 98 98 Oxygen Delivery Method Oxygen Flow Rate Fraction of Inspired Oxygen 01/11/23 19:10 01/11/23 19:15 01/11/23 19:15 Temperature Pulse Rate 94 H Respiratory Rate 20 Blood Pressure 141/94 H 198/117 H Pulse Oximetry 98 Oxygen Delivery Method Oxygen Flow Rate Fraction of Inspired Oxygen 01/11/23 19:20 01/11/23 19:20 01/11/23 19:25 Temperature Pulse Rate 69 85 Respiratory Rate 20 20 Blood Pressure 163/89 H Pulse Oximetry 98 97 Oxygen Delivery Method Oxygen Flow Rate Fraction of Inspired Oxygen 01/11/23 19:26 01/11/23 19:26 01/11/23 19:30 Temperature Pulse Rate 84 58 L Respiratory Rate 20 20 Blood Pressure 186/106 H Pulse Oximetry 97 99 Oxygen Delivery Method Oxygen Flow Rate Fraction of Inspired Oxygen 01/11/23 19:30 01/11/23 19:35 01/11/23 19:35 Temperature Pulse Rate 104 H Respiratory Rate 23 Blood Pressure 160/94 H 195/117 H Pulse Oximetry 98 Oxygen Delivery Method Oxygen Flow Rate Fraction of Inspired Oxygen 01/11/23 19:40 01/11/23 19:41 01/11/23 19:41 Temperature Pulse Rate 59 L 58 L Respiratory Rate 20 23 Blood Pressure 152/81 H Pulse Oximetry 98 99 Oxygen Delivery Method Oxygen Flow Rate Fraction of Inspired Oxygen 01/11/23 19:45 01/11/23 19:45 01/11/23 19:50 Temperature Pulse Rate 69 88 Respiratory Rate 23 24 Blood Pressure 143/83 H Pulse Oximetry 100 95 Oxygen Delivery Method Oxygen Flow Rate Fraction of Inspired Oxygen 01/11/23 19:51 01/11/23 19:51 01/11/23 19:55 Temperature Pulse Rate 72 Respiratory Rate 20 Blood Pressure 180/98 H 172/113 H Pulse Oximetry 95 Oxygen Delivery Method Oxygen Flow Rate Fraction of Inspired Oxygen 01/11/23 19:55 01/11/23 20:00 01/11/23 20:00 Temperature Pulse Rate 80 84 Respiratory Rate 21 20 Blood Pressure 152/86 H Pulse Oximetry 89 L 99 Oxygen Delivery Method Oxygen Flow Rate Fraction of Inspired Oxygen 01/11/23 20:05 01/11/23 20:05 01/11/23 20:10 Temperature Pulse Rate 75 113 H Respiratory Rate 20 22 Blood Pressure 142/84 H Pulse Oximetry 92 97 Oxygen Delivery Method Oxygen Flow Rate Fraction of Inspired Oxygen 01/11/23 20:11 01/11/23 20:11 01/11/23 20:15 Temperature Pulse Rate 114 H 76 Respiratory Rate 24 20 Blood Pressure 202/130 H Pulse Oximetry 96 98 Oxygen Delivery Method Oxygen Flow Rate Fraction of Inspired Oxygen 01/11/23 20:16 01/11/23 20:16 01/11/23 20:20 Temperature Pulse Rate 76 70 Respiratory Rate 20 20 Blood Pressure 156/74 H Pulse Oximetry 98 98 Oxygen Delivery Method Oxygen Flow Rate Fraction of Inspired Oxygen 01/11/23 20:20 01/11/23 20:21 01/11/23 20:25 Temperature Pulse Rate 70 Respiratory Rate 20 Blood Pressure 142/74 H Pulse Oximetry 99 Oxygen Delivery Method Oxygen Flow Rate Fraction of Inspired Oxygen 40 01/11/23 20:25 01/11/23 20:30 01/11/23 20:31 Temperature Pulse Rate 108 H 113 H Respiratory Rate 25 H 27 H Blood Pressure 149/84 H Pulse Oximetry 94 94 Oxygen Delivery Method Oxygen Flow Rate Fraction of Inspired Oxygen 01/11/23 20:31 01/11/23 20:35 01/11/23 20:35 Temperature Pulse Rate 80 Respiratory Rate 20 Blood Pressure 170/101 H 134/70 Pulse Oximetry 97 Oxygen Delivery Method Oxygen Flow Rate Fraction of Inspired Oxygen 01/11/23 20:40 01/11/23 20:40 01/11/23 20:45 Temperature Pulse Rate 82 84 Respiratory Rate 20 20 Blood Pressure 142/82 H Pulse Oximetry 94 95 Oxygen Delivery Method Oxygen Flow Rate Fraction of Inspired Oxygen 01/11/23 20:45 01/11/23 20:50 01/11/23 20:50 Temperature Pulse Rate 79 Respiratory Rate 20 Blood Pressure 140/79 133/77 Pulse Oximetry 93 Oxygen Delivery Method Oxygen Flow Rate Fraction of Inspired Oxygen 01/11/23 20:55 01/11/23 20:55 01/11/23 21:00 Temperature Pulse Rate 80 78 Respiratory Rate 20 20 Blood Pressure 132/76 Pulse Oximetry 94 Oxygen Delivery Method Oxygen Flow Rate Fraction of Inspired Oxygen 01/11/23 21:00 01/11/23 21:05 01/11/23 21:05 Temperature Pulse Rate 76 Respiratory Rate 20 Blood Pressure 116/73 113/76 Pulse Oximetry 94 Oxygen Delivery Method Oxygen Flow Rate Fraction of Inspired Oxygen 01/11/23 21:10 01/11/23 21:10 01/11/23 21:15 Temperature Pulse Rate 72 72 Respiratory Rate 21 20 Blood Pressure 133/72 Pulse Oximetry 93 93 Oxygen Delivery Method Oxygen Flow Rate Fraction of Inspired Oxygen 01/11/23 21:15 01/11/23 21:20 01/11/23 21:20 Temperature Pulse Rate 73 Respiratory Rate 20 Blood Pressure 122/68 121/70 Pulse Oximetry 94 Oxygen Delivery Method Oxygen Flow Rate Fraction of Inspired Oxygen 01/11/23 21:47 01/11/23 21:50 01/11/23 21:55 Temperature Pulse Rate 66 65 103 H Respiratory Rate 20 17 16 Blood Pressure Pulse Oximetry 97 98 91 Oxygen Delivery Method Oxygen Flow Rate Fraction of Inspired Oxygen 01/11/23 21:59 01/11/23 22:00 01/11/23 22:00 Temperature Pulse Rate 80 75 Respiratory Rate 18 18 Blood Pressure 142/90 H Pulse Oximetry 95 95 Oxygen Delivery Method Oxygen Flow Rate Fraction of Inspired Oxygen 01/11/23 22:05 01/11/23 22:10 01/11/23 22:15 Temperature Pulse Rate 67 66 69 Respiratory Rate 16 16 16 Blood Pressure Pulse Oximetry 100 96 95 Oxygen Delivery Method Oxygen Flow Rate Fraction of Inspired Oxygen 01/11/23 22:20 01/11/23 22:25 01/11/23 22:30 Temperature 96.6 F L Pulse Rate 69 68 Respiratory Rate 16 16 Blood Pressure 106/63 Pulse Oximetry 96 96 Oxygen Delivery Method Oxygen Flow Rate Fraction of Inspired Oxygen 01/11/23 22:30 01/11/23 23:00 01/11/23 23:00 Temperature Pulse Rate 68 66 Respiratory Rate 16 16 Blood Pressure 100/61 Pulse Oximetry 96 97 Oxygen Delivery Method Oxygen Flow Rate Fraction of Inspired Oxygen Fraction of Inspired Oxygen 40 Oxygen Delivery Method Nasal Cannula Oxygen Flow Rate 3 Objective Labs 01/11/23 23:10 01/11/23 16:46 Labs: Laboratory Results - last 24 hr 01/11/23 01/11/23 01/11/23 16:46 16:46 16:50 WBC 9.2 RBC 4.56 Hgb 13.9 Hct 42.5 MCV 93.3 MCH 30.6 MCHC 32.8 RDW 15.0 H Plt Count 278 Neut % (Auto) 65.1 Lymph % (Auto) 28.4 [place] % (Auto) 5.5 Eos % (Auto) 0.5 L Baso % (Auto) 0.5 Neut # (Auto) 6000 Lymph # (Auto) 2600 [place] # (Auto) 500 Eos # (Auto) 0 Baso # (Auto) 0 PT 12.2 INR 1.1 APTT ABG Sample Site ABG pH ABG pCO2 ABG pO2 ABG HCO3 ABG Total CO2 ABG O2 Saturation ABG Base Excess FiO2 Sodium 141 Potassium 3.5 Chloride 110 H Carbon Dioxide 22 BUN 9 Creatinine 0.72 Estimated GFR > 60 BUN/Creatinine Ratio 12.5 Glucose 85 Lactate 2.5 H Calcium 9.2 Total Bilirubin 0.6 Conjugated Bilirubin 0.0 Unconjugated Bilirubin 0.3 AST 43 H ALT 28 Alkaline Phosphatase 66 Total Creatine Kinase 32 Troponin I < 0.012 Total Protein 7.2 Albumin 3.8 Globulin 3.4 Albumin/Globulin Ratio 1.1 Lipase 84 Salicylates < 1.0 U Opiates 300ng/mL cut Positive H Ur Oxycodone Screen Positive H Urine Methadone Screen Negative Acetaminophen 50 H 50 H Ur Barbiturates Screen Negative U Tricyclic Antidepress Positive H Ur Phencyclidine Scrn Negative Ur Amphetamines Screen Negative U Methamphetamines Scrn Negative Ur MDMA Scrn (Ecstasy) Negative U Benzodiazepines Scrn Positive H Urine Cocaine Screen Negative U Marijuana (THC) Screen Positive H Ethyl Alcohol 14 H 01/11/23 01/11/23 01/11/23 17:27 18:44 19:10 WBC RBC Hgb Hct MCV MCH MCHC RDW Plt Count Neut % (Auto) Lymph % (Auto) [place] % (Auto) Eos % (Auto) Baso % (Auto) Neut # (Auto) Lymph # (Auto) [place] # (Auto) Eos # (Auto) Baso # (Auto) PT INR APTT ABG Sample Site Left radial Right radial ABG pH 7.21 L* 7.29 L* ABG pCO2 46.9 H 39.7 ABG pO2 79 L 94 ABG HCO3 19 L 19 L ABG Total CO2 20 L 20 L ABG O2 Saturation 93 L 96 ABG Base Excess -9.0 L -7.0 L FiO2 32 40 Sodium Potassium Chloride Carbon Dioxide BUN Creatinine Estimated GFR BUN/Creatinine Ratio Glucose Lactate 1.9 Calcium Total Bilirubin Conjugated Bilirubin Unconjugated Bilirubin AST ALT Alkaline Phosphatase Total Creatine Kinase Troponin I Total Protein Albumin Globulin Albumin/Globulin Ratio Lipase Salicylates U Opiates 300ng/mL cut Ur Oxycodone Screen Urine Methadone Screen Acetaminophen Ur Barbiturates Screen U Tricyclic Antidepress Ur Phencyclidine Scrn Ur Amphetamines Screen U Methamphetamines Scrn Ur MDMA Scrn (Ecstasy) U Benzodiazepines Scrn Urine Cocaine Screen U Marijuana (THC) Screen Ethyl Alcohol 01/11/23 23:10 WBC 7.6 RBC 3.88 L Hgb 12.1 Hct 36.1 MCV 93.0 MCH 31.1 MCHC 33.5 RDW 14.9 H Plt Count 250 Neut % (Auto) 57.8 Lymph % (Auto) 35.2 [place] % (Auto) 5.0 Eos % (Auto) 1.3 L Baso % (Auto) 0.7 Neut # (Auto) 4400 Lymph # (Auto) 2700 [place] # (Auto) 400 Eos # (Auto) 100 Baso # (Auto) 100 PT 14.6 H INR 1.3 APTT 30 ABG Sample Site ABG pH ABG pCO2 ABG pO2 ABG HCO3 ABG Total CO2 ABG O2 Saturation ABG Base Excess FiO2 Sodium Potassium Chloride Carbon Dioxide BUN Creatinine Estimated GFR BUN/Creatinine Ratio Glucose Lactate Calcium Total Bilirubin Conjugated Bilirubin Unconjugated Bilirubin AST ALT Alkaline Phosphatase Total Creatine Kinase Troponin I Total Protein Albumin Globulin Albumin/Globulin Ratio Lipase Salicylates U Opiates 300ng/mL cut Ur Oxycodone Screen Urine Methadone Screen Acetaminophen Ur Barbiturates Screen U Tricyclic Antidepress Ur Phencyclidine Scrn Ur Amphetamines Screen U Methamphetamines Scrn Ur MDMA Scrn (Ecstasy) U Benzodiazepines Scrn Urine Cocaine Screen U Marijuana (THC) Screen Ethyl Alcohol Assessment & Plan Assessment & Plan narrative: ASSESSMENT/PLAN: # Polysubstance overdose / Suicidal attempt: - Reportedly overdosed on multiple substances including Vicodin, Percocet, Valium, respiratory, NyQuil, Ambien and Jeff's hard lemonade. - On arrival to ER, urine drug screen positive for opiates, benzodiazepines, marijuana, THC and TCA. - Patient was administered charcoal in the ED. Intubated for airway protection. Continue supportive care. - Poison control contacted. Patient was started on high-dose neck protocol due to elevated acetaminophen level. - Monitor LFTs, serial Tylenol levels, coags. Monitor electrolytes. - Monitor QTc with serial twelve-lead EKG. - Monitor for seizures. Use IV bicarbonate if prolonged QTc. - Consult psychiatry when extubated and appropriate. # Acute respiratory failure, intubated in the ED mainly for obstruction. - Reviewed vent settings. FiO2 30%, tidal volume 480cc, RR 16, PEEP 5. F/up ABG and adjust vent settings as needed. - C/w vent support per lung protective strategy, switch to volume-assist control (Keep TV <7.5 cc/kg, plat pres < 30, PaO2 60-80 mm Hg, SaO2 >92%) and c/w ABCDE bundle. - Continue sedation with propofol gtt. and fentanyl IV pushes. Goal to maintain RASS 0-2. - C/w daily sedation vacation and vent weaning. Reevaluate tomorrow a.m. with SAT and SBT if meets criteria. # FEN: Currently NPO. # Glucose: fairly controlled. C/w Accu checks Q6 hours and SSI. BG goal 140-180 # Prophylaxis: SCDs for DVT prophylaxis, PPI for stress ulcer prophylaxis # Lines/tubes: PIV, Carlson, ET tube, OG tube, CVC # CODE STATUS: Full code # Disposition: Remains in ICU Above plan was discussed with bedside RN, and primary team. We will continue to follow. Please call us if any additional questions.
[2023-01-11 23:45] LABS: Alanine Aminotransferase 22 IU/L (<35); Albumin 2.8 g/dL (3.5-5.0); Aspartate Aminotransferase 18 IU/L (14-36); BUN Creatinine Ratio 15.9 (6-22); Bilirubin Total 0.7 mg/dL (0.2-1.3); Blood Urea Nitrogen 7 mg/dL (7-17); Calcium 7.9 mg/dL (8.4-10.2); Carbon Dioxide 22 mmol/L (22-32); Chloride 110 mmol/L (98-107); Estimated Glomerular Filt Rate > 60 mL/min (>60); Glucose 89 mg/dL (70-100); HEMOLYSIS < 15 (0-50); Magnesium 2.1 mg/dL (1.6-2.3); Sodium 141 mmol/L (137-145)
[2023-01-12] VITALS (60 sets, daily range): BP systolic 94–133; BP diastolic 53–87; PULSE 57–83; RESP 0–37; TEMP 35.7–36.3; O2SAT 91–99
[2023-01-12 00:02] LABS: Albumin Globulin Ratio 1.1 (1.0-2.8); Globulin 2.6 g/dL (1.7-4.1)
[2023-01-12 00:03] LABS: Alkaline Phosphatase < 20 U/L (38-126); Total Protein 5.4 g/dL (6.3-8.2)
[2023-01-12] MEDS: propofoL 1,000 MG/100 ML VIAL 19.185 MG IV ×2 (00:36→03:55)
[2023-01-12] MEDS: MAGNESIUM SULFATE 2 GM/50 ML PIGGYBACK IV (00:44)
[2023-01-12] MEDS: POTASSIUM CHLORIDE IN WATER 10 MEQ/100 ML PIGGYBACK 100 MEQ IV ×8 (01:34→10:23)
--- NOTE | 2023-01-12 03:21 | PC.NURSE ---
Addendum entered by Brandie Espinoza R.N. 01/12/23 06:59: 0625-Discussed with Poison Control AM labs. Acetylcysteine stopped per their recommendation. KRiders ordered. Patient stable at this time. Addendum entered by Brandie Espinoza R.N. 01/12/23 05:19: 0515- Patient will start thrashing with any stimulus. Propofol titrated to 30 benny/kg/min. No other sedation ordered. Patient pulled out her left antecube IV. Patient still has two left arm IV's. Will need a Picc Placed lizzie in the morning. Patient opens her eyes but does not follow commands. AM labs pending. Will monitor. Addendum entered by Brandie Espinoza R.N. 01/12/23 04:30: 0430-Patient positive for MRSA of the Nares. Placed on contact isolation per protocol. Will Monitor Original Note: 0300- Patient arrived via stretcher from Emergency at 2140 on 01/11. Patient is vented, and on Propofol for sedation. Patient has three peripheral IV with infusions running. Patient has a OG tube clamped. Patient is in NSR. SCD placed bilateral calves. Patient sister Tiffanie allowed to come to the room once we had the patient settled. All questions were answered and Tiffanie was given the direct number to ICU. Tiffanie left to rest and will return in the morning, she resides in [place]. Patient becomes very agitated with suctioning or stimulation. Hemodynamics are stable. Will monitor.
[2023-01-12 04:21] LABS: MRSA (Nasal) PCR DETECTED (Not Detect)
[2023-01-12 05:19] LABS: Add Manual Diff / Slide Review NO; Basophils Absolute Auto 0 /uL (0-100); Basophils Percent Auto 0.6 % (0-2); Eosinophils Absolute Auto 100 /uL (0-450); Eosinophils Percent Auto 1.5 % (2-4); Hematocrit 35.2 % (36-46); Hemoglobin 11.8 g/dL (12.0-16.0); Lymphocytes Absolute Auto 2500 /uL (1100-4500); Lymphocytes Percent Auto 28.7 % (25-40); Mean Corpuscular HGB Conc 33.4 % (30-36); Mean Corpuscular Hemoglobin 30.5 PG (26-34); Mean Corpuscular Volume 91.1 fL (80-100); Monocytes Absolute Auto 500 /uL (0-900); Monocytes Percent Auto 5.7 % (3-14); Neutrophils Absolute Auto 5500 /uL (1500-7000); Neutrophils Percent Auto 63.5 % (50-75); Platelet Count 234 X10^3/uL (150-400); Red Blood Cell Count 3.87 X10^6/uL (4.0-5.2); Red Cell Distribution Width 15.5 % (11.6-14.8); White Blood Cell Count 8.6 X10^3/uL (4.5-11.0)
[2023-01-12 05:29] LABS: INR 1.2 (0.9-1.3)
[2023-01-12 05:33] LABS: Acetaminophen < 10 ug/mL (10-30); Alanine Aminotransferase 20 IU/L (<35); Albumin 2.7 g/dL (3.5-5.0); Alkaline Phosphatase 21 U/L (38-126); Aspartate Aminotransferase 17 IU/L (14-36); BUN Creatinine Ratio 14.3 (6-22); Bilirubin Total 0.5 mg/dL (0.2-1.3); Blood Urea Nitrogen 6 mg/dL (7-17); Calcium 8.2 mg/dL (8.4-10.2); Carbon Dioxide 22 mmol/L (22-32); Chloride 109 mmol/L (98-107); Estimated Glomerular Filt Rate > 60 mL/min (>60); Globulin 2.7 g/dL (1.7-4.1); Glucose 104 mg/dL (70-100); HEMOLYSIS < 15 (0-50); PTT Partial Thromboplastin Tim 21 SECONDS (25.1-36.5); Potassium 3.3 mmol/L (3.4-5.1); Sodium 138 mmol/L (137-145); Total Protein 5.4 g/dL (6.3-8.2)
[2023-01-12] MEDS: PANTOPRAZOLE 40 MG VIAL IV (08:13)
--- NOTE | 2023-01-12 08:32 | PM.PN.1 ---
Subjective Subjective Interval history: Patient still on vent. Fentanyl drip added for more sedation. LFT's now normal. QTc WNL. Family at bedside and her status was updated. Exam Vital Signs (past 8 hours): - 01/12/23 00:48 01/12/23 01:00 01/12/23 01:00 Temperature Pulse Rate 68 Respiratory Rate 16 16 Blood Pressure 111/67 Pulse Oximetry 95 97 Oxygen Delivery Method Mechanical Ventilation 01/12/23 01:30 01/12/23 01:30 01/12/23 02:00 Temperature Pulse Rate 64 Respiratory Rate 16 Blood Pressure 106/69 127/80 Pulse Oximetry 97 Oxygen Delivery Method 01/12/23 02:00 01/12/23 02:09 01/12/23 02:30 Temperature Pulse Rate 63 Respiratory Rate 16 Blood Pressure 121/68 Pulse Oximetry 92 Oxygen Delivery Method Mechanical Ventilation 01/12/23 02:30 01/12/23 03:00 01/12/23 03:00 Temperature Pulse Rate 65 66 Respiratory Rate 16 16 Blood Pressure 125/62 Pulse Oximetry 93 98 Oxygen Delivery Method 01/12/23 03:30 01/12/23 03:30 01/12/23 04:00 Temperature Pulse Rate 66 Respiratory Rate 16 Blood Pressure 122/72 123/77 Pulse Oximetry 98 Oxygen Delivery Method 01/12/23 04:00 01/12/23 04:30 01/12/23 04:30 Temperature 96.7 F L Pulse Rate 64 66 Respiratory Rate 16 0 L Blood Pressure 125/70 Pulse Oximetry 97 97 Oxygen Delivery Method 01/12/23 05:00 01/12/23 05:00 01/12/23 05:30 Temperature Pulse Rate 69 66 Respiratory Rate 16 16 Blood Pressure 133/74 Pulse Oximetry 97 95 Oxygen Delivery Method 01/12/23 05:31 01/12/23 05:31 01/12/23 06:00 Temperature Pulse Rate 67 Respiratory Rate 16 Blood Pressure 125/58 L 116/57 L Pulse Oximetry 95 Oxygen Delivery Method 01/12/23 06:00 01/12/23 06:09 Temperature Pulse Rate 68 Respiratory Rate 16 Blood Pressure Pulse Oximetry 95 Oxygen Delivery Method Mechanical Ventilation Fraction of Inspired Oxygen 40 Oxygen Delivery Method Mechanical Ventilation Oxygen Flow Rate 3 Const Nutritional Appearance: obese HENMT Other: intubated, no facial trauma, NCAT Chest Chest: normal inspection of the chest Resp Auscultation: other (coarse thoughout, ventilated RR 16) Cardio Rate: regular rate Rhythm: regular rhythm Heart Sounds: S1 normal and S2 normal Pulses: radial pulses present GI Palpation: soft Auscultation: normal bowel sounds Skin Other: small bruise on left leg, no rashes Neuro Other: intubated and sedated, does have tone bilaterally Psych Other: cannot currently assess but suicidal and +attempt Objective Labs 01/12/23 12:17 01/12/23 12:17 Labs: Laboratory Results - last 24 hr 01/11/23 01/11/23 01/11/23 16:46 16:46 16:50 WBC 9.2 RBC 4.56 Hgb 13.9 Hct 42.5 MCV 93.3 MCH 30.6 MCHC 32.8 RDW 15.0 H Plt Count 278 Neut % (Auto) 65.1 Lymph % (Auto) 28.4 [place] % (Auto) 5.5 Eos % (Auto) 0.5 L Baso % (Auto) 0.5 Neut # (Auto) 6000 Lymph # (Auto) 2600 [place] # (Auto) 500 Eos # (Auto) 0 Baso # (Auto) 0 PT 12.2 INR 1.1 APTT ABG Sample Site ABG pH ABG pCO2 ABG pO2 ABG HCO3 ABG Total CO2 ABG O2 Saturation ABG Base Excess FiO2 Sodium 141 Potassium 3.5 Chloride 110 H Carbon Dioxide 22 BUN 9 Creatinine 0.72 Estimated GFR > 60 BUN/Creatinine Ratio 12.5 Glucose 85 Lactate 2.5 H Calcium 9.2 Magnesium Total Bilirubin 0.6 Conjugated Bilirubin 0.0 Unconjugated Bilirubin 0.3 AST 43 H ALT 28 Alkaline Phosphatase 66 Total Creatine Kinase 32 Troponin I < 0.012 Total Protein 7.2 Albumin 3.8 Globulin 3.4 Albumin/Globulin Ratio 1.1 Lipase 84 Nasal Screen MRSA (PCR) Salicylates < 1.0 U Opiates 300ng/mL cut Positive H Ur Oxycodone Screen Positive H Urine Methadone Screen Negative Acetaminophen 50 H 50 H Ur Barbiturates Screen Negative U Tricyclic Antidepress Positive H Ur Phencyclidine Scrn Negative Ur Amphetamines Screen Negative U Methamphetamines Scrn Negative Ur MDMA Scrn (Ecstasy) Negative U Benzodiazepines Scrn Positive H Urine Cocaine Screen Negative U Marijuana (THC) Screen Positive H Ethyl Alcohol 14 H 01/11/23 01/11/23 01/11/23 17:27 18:44 19:10 WBC RBC Hgb Hct MCV MCH MCHC RDW Plt Count Neut % (Auto) Lymph % (Auto) [place] % (Auto) Eos % (Auto) Baso % (Auto) Neut # (Auto) Lymph # (Auto) [place] # (Auto) Eos # (Auto) Baso # (Auto) PT INR APTT ABG Sample Site Left radial Right radial ABG pH 7.21 L* 7.29 L* ABG pCO2 46.9 H 39.7 ABG pO2 79 L 94 ABG HCO3 19 L 19 L ABG Total CO2 20 L 20 L ABG O2 Saturation 93 L 96 ABG Base Excess -9.0 L -7.0 L FiO2 32 40 Sodium Potassium Chloride Carbon Dioxide BUN Creatinine Estimated GFR BUN/Creatinine Ratio Glucose Lactate 1.9 Calcium Magnesium Total Bilirubin Conjugated Bilirubin Unconjugated Bilirubin AST ALT Alkaline Phosphatase Total Creatine Kinase Troponin I Total Protein Albumin Globulin Albumin/Globulin Ratio Lipase Nasal Screen MRSA (PCR) Salicylates U Opiates 300ng/mL cut Ur Oxycodone Screen Urine Methadone Screen Acetaminophen Ur Barbiturates Screen U Tricyclic Antidepress Ur Phencyclidine Scrn Ur Amphetamines Screen U Methamphetamines Scrn Ur MDMA Scrn (Ecstasy) U Benzodiazepines Scrn Urine Cocaine Screen U Marijuana (THC) Screen Ethyl Alcohol 01/11/23 01/11/23 01/12/23 22:13 23:10 04:50 WBC 7.6 8.6 RBC 3.88 L 3.87 L Hgb 12.1 11.8 L Hct 36.1 35.2 L MCV 93.0 91.1 MCH 31.1 30.5 MCHC 33.5 33.4 RDW 14.9 H 15.5 H Plt Count 250 234 Neut % (Auto) 57.8 63.5 Lymph % (Auto) 35.2 28.7 [place] % (Auto) 5.0 5.7 Eos % (Auto) 1.3 L 1.5 L Baso % (Auto) 0.7 0.6 Neut # (Auto) 4400 5500 Lymph # (Auto) 2700 2500 [place] # (Auto) 400 500 Eos # (Auto) 100 100 Baso # (Auto) 100 0 PT 14.6 H 14.0 H INR 1.3 1.2 APTT 30 21 L D ABG Sample Site ABG pH ABG pCO2 ABG pO2 ABG HCO3 ABG Total CO2 ABG O2 Saturation ABG Base Excess FiO2 Sodium 141 138 Potassium 3.0 L 3.3 L Chloride 110 H 109 H Carbon Dioxide 22 22 BUN 7 6 L Creatinine 0.44 L 0.42 L Estimated GFR > 60 > 60 BUN/Creatinine Ratio 15.9 14.3 Glucose 89 104 H Lactate Calcium 7.9 L 8.2 L Magnesium 2.1 Total Bilirubin 0.7 0.5 Conjugated Bilirubin Unconjugated Bilirubin AST 18 17 ALT 22 20 Alkaline Phosphatase < 20 L 21 L Total Creatine Kinase Troponin I Total Protein 5.4 L 5.4 L Albumin 2.8 L 2.7 L Globulin 2.6 2.7 Albumin/Globulin Ratio 1.1 1.0 Lipase Nasal Screen MRSA (PCR) Detected H Salicylates U Opiates 300ng/mL cut Ur Oxycodone Screen Urine Methadone Screen Acetaminophen 17 < 10 Ur Barbiturates Screen U Tricyclic Antidepress Ur Phencyclidine Scrn Ur Amphetamines Screen U Methamphetamines Scrn Ur MDMA Scrn (Ecstasy) U Benzodiazepines Scrn Urine Cocaine Screen U Marijuana (THC) Screen Ethyl Alcohol PFSH Medical History Morbid obesity with body mass index (BMI) of 50.0 to 59.9 in adult (~09/26/17) ADD (attention deficit disorder) without hyperactivity Osteoarthritis Migraine Irritable bowel syndrome (IBS) Fibromyalgia Asthma Atherosclerosis of abdominal aorta Type 2 diabetes mellitus Depression Anxiety Primary insomnia Snoring Nocturnal hypoxemia Obstructive sleep apnea of adult Social History household members: friend(s) Assessment & Plan Assessment and plan (1) Narcotic overdose: Qualifiers: Encounter type: initial encounter Injury intent: intentional self-harm Qualified Code(s): T40.602A - Poisoning by unspecified narcotics, intentional self-harm, initial encounter Status: Acute (2) Overdose by acetaminophen: Qualifiers: Encounter type: initial encounter Injury intent: intentional self-harm Qualified Code(s): T39.1X2A - Poisoning by 4-Aminophenol derivatives, intentional self-harm, initial encounter Status: Acute (3) Morbid obesity with body mass index (BMI) of 50.0 to 59.9 in adult: Status: Chronic (4) Suicide attempt: Status: Acute (5) Respiratory failure requiring intubation: Status: Acute Plan # Respiratory failure requiring intubation underlying DARON precipitated by polysubstance overdose Control Center Operator consulted will attempt extubation on 01/13 if patient not too combative, switch to precedex overnight in preparation # Intential polysubstance overdose Did not respond to narcan alone in the field on NAC drip per poison control, now finished unclear tylenol burden, LFT's now normal also has benzos/opiates on board ETOH not high charcoal administered and supportive care # Suicide attempt will need psychiatric care after medically stable # morbid obesity BMI 41 DVT prophylaxis lovenox I spent a total of 35 minutes of critical care time on this patient's care today; this time is exclusive of procedural time. Dispo: Likely extubation on 01/13 then will need DCR vs psych consult for suicide attempt and possible inpatient psych. Quality VTE Deep Vein Thrombosis/Pulmonary Embolism Present on Admission: No
[2023-01-12] MEDS: propofoL 1,000 MG/100 ML VIAL 34.533 MG IV ×3 (09:15→14:48)
[2023-01-12] MEDS: DEXTROSE 5%-0.9% NS 1,000 ML 100 ML IV (09:17)
[2023-01-12 09:20] LABS: Labcorp Creatine Kinase MB <1.0 ng/mL (0.0-5.3)
[2023-01-12] MEDS: MIDAZOLAM 2 MG/2 ML VIAL IV ×3 (09:43→22:17)
--- NOTE | 2023-01-12 09:49 | PM.PN.EICU ---
Subjective Subjective IF CAMERA ACTIVATED, patient seen via real-time interactive audiovisual communication: Camera activated Date Patient Seen: 01/12/23 Consent obtained for tele-accountant assistant care: Yes Patient Location: ICU Provider location (State): [place] Other participants/roles: bedside RN, hospitalist Dr. Dietz Interval history: Patient remains intubated, not directable, but still agitated when not deeply sedated and pulled IV out Fentanyl gtt added for analgesia. vital signs have been normal INR 1.2 today RN's reporting Qtc has been WNL Renal function and LFT's remain WNL Current Medications Current Medications Medications: Home Medications OMEPRAZOLE 20 mg PO Q DAY ##0 11/23/09 [History] Visit Medications (administered) Generic Name Dose Route Start Last Admin Trade Name Freq PRN Reason Stop Dose Admin Naloxone HCl 2 mg/ Sodium 500 mls @ 62.5 mls/hr 01/11/23 17:15 01/11/23 18:00 Chloride IV 0 mg/hr TITRATE TEE 0 mls/hr Infusion 0.25 MG/HR NOREPINEPHRINE BITARTRATE/D5W 4 mg in 250 mls @ 47.967 mls/hr 01/11/23 17:37 01/11/23 21:00 Levophed IV 0 mcg/kg/min TITRATE TEE 0 mls/hr Titration Protocol 0.1 MCG/KG/MIN Dextrose/Sodium Chloride 1,000 mls @ 100 mls/hr 01/11/23 20:15 01/12/23 09:17 Dextrose 5%-0.9% Ns IV 100 mls/hr CONT TEE Administration Propofol 1,000 mg in 100 mls @ 3.837 mls/hr 01/11/23 20:30 01/12/23 09:15 Propofol IV 45 mcg/kg/min TITRATE TEE 34.533 mls/hr Administration Protocol 5 MCG/KG/MIN POTASSIUM CHLORIDE IN WATER 10 meq in 100 mls @ 100 mls/hr 01/12/23 06:30 01/12/23 09:16 Potassium Cl 10 Meq/100 Ml Nayla IV 01/12/23 10:29 100 mls/hr Q1H TEE Administration Midazolam HCl 2 mg 01/12/23 09:01 01/12/23 09:43 Midazolam 2 Mg/2 Ml Vial IV 2 mg Q2HR PRN Administration Agitation Pantoprazole Sodium 40 mg 01/12/23 09:00 01/12/23 08:13 Pantoprazole 40 Mg Vial IV 40 mg DAILY TEE Administration Objective Ventilator Parameters: Ventilator Settings FiO2 28 RT Vent Frequency 16 Ventilator Tidal Volume 480 Exhaled Positive End Expiratory 5 Pressure Inspiratory Phase Time 0.90 I:E Ratio 1:3.8 Patient Position HOB >= 30 degrees Imaging Chest x-ray: Radiologist's impression: LOw lung volumes, increased interstitial markings may be secondary to low lung volumes, edema or infection not excluded Labs 01/12/23 04:50 01/12/23 04:50 Labs: Laboratory Results - last 24 hr 01/11/23 01/11/23 01/11/23 16:46 16:46 16:50 WBC 9.2 RBC 4.56 Hgb 13.9 Hct 42.5 MCV 93.3 MCH 30.6 MCHC 32.8 RDW 15.0 H Plt Count 278 Neut % (Auto) 65.1 Lymph % (Auto) 28.4 [place] % (Auto) 5.5 Eos % (Auto) 0.5 L Baso % (Auto) 0.5 Neut # (Auto) 6000 Lymph # (Auto) 2600 [place] # (Auto) 500 Eos # (Auto) 0 Baso # (Auto) 0 PT 12.2 INR 1.1 APTT ABG Sample Site ABG pH ABG pCO2 ABG pO2 ABG HCO3 ABG Total CO2 ABG O2 Saturation ABG Base Excess FiO2 Sodium 141 Potassium 3.5 Chloride 110 H Carbon Dioxide 22 BUN 9 Creatinine 0.72 Estimated GFR > 60 BUN/Creatinine Ratio 12.5 Glucose 85 Lactate 2.5 H Calcium 9.2 Magnesium Total Bilirubin 0.6 Conjugated Bilirubin 0.0 Unconjugated Bilirubin 0.3 AST 43 H ALT 28 Alkaline Phosphatase 66 Total Creatine Kinase 32 CK-MB (CK-2) <1.0 Troponin I < 0.012 Total Protein 7.2 Albumin 3.8 Globulin 3.4 Albumin/Globulin Ratio 1.1 Lipase 84 Nasal Screen MRSA (PCR) Salicylates < 1.0 U Opiates 300ng/mL cut Positive H Ur Oxycodone Screen Positive H Urine Methadone Screen Negative Acetaminophen 50 H 50 H Ur Barbiturates Screen Negative U Tricyclic Antidepress Positive H Ur Phencyclidine Scrn Negative Ur Amphetamines Screen Negative U Methamphetamines Scrn Negative Ur MDMA Scrn (Ecstasy) Negative U Benzodiazepines Scrn Positive H Urine Cocaine Screen Negative U Marijuana (THC) Screen Positive H Ethyl Alcohol 14 H 01/11/23 01/11/23 01/11/23 17:27 18:44 19:10 WBC RBC Hgb Hct MCV MCH MCHC RDW Plt Count Neut % (Auto) Lymph % (Auto) [place] % (Auto) Eos % (Auto) Baso % (Auto) Neut # (Auto) Lymph # (Auto) [place] # (Auto) Eos # (Auto) Baso # (Auto) PT INR APTT ABG Sample Site Left radial Right radial ABG pH 7.21 L* 7.29 L* ABG pCO2 46.9 H 39.7 ABG pO2 79 L 94 ABG HCO3 19 L 19 L ABG Total CO2 20 L 20 L ABG O2 Saturation 93 L 96 ABG Base Excess -9.0 L -7.0 L FiO2 32 40 Sodium Potassium Chloride Carbon Dioxide BUN Creatinine Estimated GFR BUN/Creatinine Ratio Glucose Lactate 1.9 Calcium Magnesium Total Bilirubin Conjugated Bilirubin Unconjugated Bilirubin AST ALT Alkaline Phosphatase Total Creatine Kinase CK-MB (CK-2) Troponin I Total Protein Albumin Globulin Albumin/Globulin Ratio Lipase Nasal Screen MRSA (PCR) Salicylates U Opiates 300ng/mL cut Ur Oxycodone Screen Urine Methadone Screen Acetaminophen Ur Barbiturates Screen U Tricyclic Antidepress Ur Phencyclidine Scrn Ur Amphetamines Screen U Methamphetamines Scrn Ur MDMA Scrn (Ecstasy) U Benzodiazepines Scrn Urine Cocaine Screen U Marijuana (THC) Screen Ethyl Alcohol 01/11/23 01/11/23 01/12/23 22:13 23:10 04:50 WBC 7.6 8.6 RBC 3.88 L 3.87 L Hgb 12.1 11.8 L Hct 36.1 35.2 L MCV 93.0 91.1 MCH 31.1 30.5 MCHC 33.5 33.4 RDW 14.9 H 15.5 H Plt Count 250 234 Neut % (Auto) 57.8 63.5 Lymph % (Auto) 35.2 28.7 [place] % (Auto) 5.0 5.7 Eos % (Auto) 1.3 L 1.5 L Baso % (Auto) 0.7 0.6 Neut # (Auto) 4400 5500 Lymph # (Auto) 2700 2500 [place] # (Auto) 400 500 Eos # (Auto) 100 100 Baso # (Auto) 100 0 PT 14.6 H 14.0 H INR 1.3 1.2 APTT 30 21 L D ABG Sample Site ABG pH ABG pCO2 ABG pO2 ABG HCO3 ABG Total CO2 ABG O2 Saturation ABG Base Excess FiO2 Sodium 141 138 Potassium 3.0 L 3.3 L Chloride 110 H 109 H Carbon Dioxide 22 22 BUN 7 6 L Creatinine 0.44 L 0.42 L Estimated GFR > 60 > 60 BUN/Creatinine Ratio 15.9 14.3 Glucose 89 104 H Lactate Calcium 7.9 L 8.2 L Magnesium 2.1 Total Bilirubin 0.7 0.5 Conjugated Bilirubin Unconjugated Bilirubin AST 18 17 ALT 22 20 Alkaline Phosphatase < 20 L 21 L Total Creatine Kinase CK-MB (CK-2) Troponin I Total Protein 5.4 L 5.4 L Albumin 2.8 L 2.7 L Globulin 2.6 2.7 Albumin/Globulin Ratio 1.1 1.0 Lipase Nasal Screen MRSA (PCR) Detected H Salicylates U Opiates 300ng/mL cut Ur Oxycodone Screen Urine Methadone Screen Acetaminophen 17 < 10 Ur Barbiturates Screen U Tricyclic Antidepress Ur Phencyclidine Scrn Ur Amphetamines Screen U Methamphetamines Scrn Ur MDMA Scrn (Ecstasy) U Benzodiazepines Scrn Urine Cocaine Screen U Marijuana (THC) Screen Ethyl Alcohol Exam Vital Signs (past 8 hours): - 01/12/23 02:00 01/12/23 02:00 01/12/23 02:09 Temperature Pulse Rate 63 Respiratory Rate 16 Blood Pressure 127/80 Pulse Oximetry 92 Oxygen Delivery Method Mechanical Ventilation 01/12/23 02:30 01/12/23 02:30 01/12/23 03:00 Temperature Pulse Rate 65 Respiratory Rate 16 Blood Pressure 121/68 125/62 Pulse Oximetry 93 Oxygen Delivery Method 01/12/23 03:00 01/12/23 03:30 01/12/23 03:30 Temperature Pulse Rate 66 66 Respiratory Rate 16 16 Blood Pressure 122/72 Pulse Oximetry 98 98 Oxygen Delivery Method 01/12/23 04:00 01/12/23 04:00 01/12/23 04:30 Temperature 96.7 F L Pulse Rate 64 Respiratory Rate 16 Blood Pressure 123/77 125/70 Pulse Oximetry 97 Oxygen Delivery Method 01/12/23 04:30 01/12/23 05:00 01/12/23 05:00 Temperature Pulse Rate 66 69 Respiratory Rate 0 L 16 Blood Pressure 133/74 Pulse Oximetry 97 97 Oxygen Delivery Method 01/12/23 05:30 01/12/23 05:31 01/12/23 05:31 Temperature Pulse Rate 66 67 Respiratory Rate 16 16 Blood Pressure 125/58 L Pulse Oximetry 95 95 Oxygen Delivery Method 01/12/23 06:00 01/12/23 06:00 01/12/23 06:09 Temperature Pulse Rate 68 Respiratory Rate 16 Blood Pressure 116/57 L Pulse Oximetry 95 Oxygen Delivery Method Mechanical Ventilation 01/12/23 06:30 01/12/23 06:30 01/12/23 07:00 Temperature Pulse Rate 66 64 Respiratory Rate 16 16 Blood Pressure 113/70 Pulse Oximetry 95 96 Oxygen Delivery Method 01/12/23 07:00 01/12/23 07:30 01/12/23 07:31 Temperature Pulse Rate 67 Respiratory Rate 16 Blood Pressure 111/68 115/75 Pulse Oximetry 97 Oxygen Delivery Method 01/12/23 07:31 01/12/23 08:00 01/12/23 08:00 Temperature Pulse Rate 71 65 Respiratory Rate 28 H 16 Blood Pressure 118/67 Pulse Oximetry 99 97 Oxygen Delivery Method 01/12/23 08:30 01/12/23 08:31 01/12/23 08:31 Temperature 97.4 F L Pulse Rate 83 81 Respiratory Rate 37 H 24 Blood Pressure 128/55 L Pulse Oximetry 98 98 Oxygen Delivery Method 01/12/23 09:00 01/12/23 09:00 Temperature Pulse Rate 67 Respiratory Rate 16 Blood Pressure 118/69 Pulse Oximetry 96 Oxygen Delivery Method Fraction of Inspired Oxygen 40 Oxygen Delivery Method Mechanical Ventilation Oxygen Flow Rate 3 Narrative Exam Narrative: intubated, sedated, lying in bed calm at time of exam NSR on tele monitor Quality TeleICU VTE Deep Vein Thrombosis/Pulmonary Embolism Present on Admission: No Stress Ulcer Stress ulcer prophylaxis: yes Assessment & Plan Assessment and plan (1) Metabolic acidosis: Status: Acute (2) Suicide attempt by inadequate means: Qualifiers: Encounter type: initial encounter Qualified Code(s): X83.8XXA - Intentional self-harm by other specified means, initial encounter Status: Acute (3) Benzodiazepine (tranquilizer) overdose: Qualifiers: Encounter type: initial encounter Injury intent: intentional self-harm Qualified Code(s): T42.4X2A - Poisoning by benzodiazepines, intentional self-harm, initial encounter Status: Acute (4) Respiratory failure requiring intubation: Status: Acute (5) Suicide attempt: Status: Acute (6) Narcotic overdose: Qualifiers: Encounter type: initial encounter Injury intent: intentional self-harm Qualified Code(s): T40.602A - Poisoning by unspecified narcotics, intentional self-harm, initial encounter Status: Acute (7) Overdose by acetaminophen: Qualifiers: Encounter type: initial encounter Injury intent: intentional self-harm Qualified Code(s): T39.1X2A - Poisoning by 4-Aminophenol derivatives, intentional self-harm, initial encounter Status: Acute (8) Morbid obesity with body mass index (BMI) of 50.0 to 59.9 in adult: Status: Chronic (9) Nocturnal hypoxemia: Problem details: status unknown Status: Chronic (10) Obstructive sleep apnea of adult: Status: Chronic Assessment & Plan narrative: ASSESSMENT/PLAN: # Polysubstance overdose / Suicidal attempt: - Reportedly overdosed on multiple substances including Vicodin, Percocet, Valium, NyQuil, Ambien and Jeff's hard lemonade. - unclear what her baseline use of opiates is - On arrival to ER, urine drug screen positive for opiates, benzodiazepines, marijuana, THC and TCA. - Patient was administered charcoal in the ED. Intubated for airway protection. Continue supportive care. - Poison control contacted. Patient was started on high-dose NAC protocol due to elevated acetaminophen level. - Monitor LFTs, serial Tylenol levels, coags. Monitor electrolytes. - Monitor QTc with serial twelve-lead EKG. - Monitor for seizures. Use IV bicarbonate if prolonged QTc. - Consult psychiatry when extubated and appropriate. # Acute respiratory failure, intubated in the ED mainly for airway protection - Reviewed vent settings. FIo2 30%, will obtain abg this am. - C/w vent support per lung protective strategy, continue volume-assist control (Keep TV <7.5 cc/kg, plat pres < 30, PaO2 60-80 mm Hg, SaO2 >92%) and c/w ABCDE bundle. - Continue sedation with propofol gtt. -. Goal to maintain RASS 0-2. - added fentanyl gtt this am for analgesia while intubated- , THis morning patient was agitated, thrashing- but not directable when more awake-, pulling out IV's- unclear what her baseline use of opiates is if any, and c/f withdrawal - Reevaluate tomorrow a.m. with SAT and SBT if meets criteria- anticipate patient should be able to be extubated in am once substances clear, as she is on low fio2 # FEN: Currently NPO. # Glucose: . BG goal 140-180 # Prophylaxis: lovenox for DVT prophylaxis, - as INR 1.2 - and LFT's normal. plt normal. no signs of coagulopathy- PPI for stress ulcer prophylaxis # Lines/tubes: PIV, Carlson, ET tube, OG tube, CVC # CODE STATUS: Full code # Disposition: Remains in ICU Above plan was discussed with bedside RN, and Dr. Dietz We will continue to follow. Please call us if any additional questions. Time Spent With Patient Time with patient: 30 to 49 minutes with 50% spent counseling/coordinating care
[2023-01-12] MEDS: fentaNYL 1,000 MCG in DEXTROSE 5% IN WATER 230 ML 22.05 MCG IV (09:52)
--- NOTE | 2023-01-12 10:09 | DI.RAD.S_ITS ---
PROCEDURE: XR CHEST FOR PICC 1V INDICATIONS: PICC line placement TECHNIQUE: One view of the chest was acquired. COMPARISON: [facility], , XR CHEST 1V, 01/11/2023, 19:28. FINDINGS: Surgical changes and devices: The endotracheal tube is redemonstrated. The left central venous catheter is been removed. There is a new left PICC, the tip of which is projected over the expected location of the cavoatrial junction. Lungs and pleura: Lung volumes are low. Atelectasis is present in the left mid lung. There are left basilar pulmonary radiopacities and a probable effusion. Mediastinum: Mediastinal contours appear normal. Heart size is normal. Bones and chest wall: No suspicious bony lesions. Overlying soft tissues appear unremarkable. IMPRESSION: 1. Left PICC as above. 2. Left pulmonary radiopacities and effusion. Dictated by: Jada Ni M.D. on 01/12/2023 at 10:54 Approved by: Jada Ni M.D. on 01/12/2023 at 10:56
--- NOTE | 2023-01-12 10:33 | PC.NURSE ---
Addendum entered by Sonia Cruz R.N. 01/12/23 18:54: end of shift note: Pt has required an additional 2 bolus of fentanyl spaced Q1H apart, RASS of +2 to -2, still becomes agitated and pulling at lines, but was able to get her to calm down at one point and follow commands, explained to pt if she is able to follow commands tomorrow, that we might be able to extubate her in the morning, pt nodded head in understanding. Pt remains on prop and fentanyl for sedation, vent settings at TV 480, FiO2 28%, RR 16 PEEP 5. VSS, will continue to monitor Addendum entered by Sonia Cruz R.N. 01/12/23 15:34: [id number] Spoke to Gabriela at Poison Control, called regarding update on pt status, only recommendation was to feel free to use Benzodiazapenes for agitation in pts medication regimen. Poison control will f/u on pt status 01/13/23 Addendum entered by Sonia Cruz R.N. 01/12/23 14:56: Pt has received 4 boluses of 50mg each of fentanyl at Q1H intervals for agitation, pulling lines, and pulling at restraints. Original Note: Day shift note: Pt currently sedated on Prop and vented at TV 480 FiO2 30% RR 16 PEEP 5, K riders infusing. Pt starts thrashing with any stimulus. Will talk to Tele ICU regarding additional sedation. Bed low and locked, will continue to monitor
[2023-01-12] MEDS: ENOXAPARIN 40 MG/0.4 ML SYRINGE SUBCUT ×2 (11:00→20:32)
--- NOTE | 2023-01-12 11:18 | DIET.CONS2 ---
Dietary Inpatient Consultation Note Admission Date: 01/11/2023 20:12 RD consulted for pt NPO on vent status. No indication for nutrition support at this time as pt to be extubated within 24h. Please reconsult RD with any status changes. Diet: 01/11/23 20:15 NPO Diet Diet Modifications: NPO Type: Strict Electronically Signed by: Sharon Carlin 01/12/23 11:18 Clinical Dietitian [address] [id number]
[2023-01-12 11:37] LABS: PCO2 ABG 34.6 mmHg (35-45); PO2 ABG 73 mmHg (80-100); pH ABG 7.35 (7.35-7.45)
[2023-01-12 11:38] LABS: Fractionated Inspired Oxygen 28; HCO3 ABG 19 mmol/L (23-27); Oxygen Saturation ABG 94 % (95-100); TCO2 ABG 20 mmol/L (23-27)
[2023-01-12 11:41] LABS: Allen Test for ABG Passed? Yes, Passed; Blood Gas Collection Site Left Radial
--- NOTE | 2023-01-12 11:44 | CM.DANOTE ---
Addendum entered by DEREK Ledezma 01/12/23 15:24: ADD: SW met with pt's sister Tiffanie ([phone]) and she helped provide background information on the patient. Pt has a long mental health and CHRISTINE hx. Pt has been established with Psychiatrist Marycruz Moe and her PCP who has prescibed her pain medications is Dr. Kirby Olsen at [facility]. Pt had been established with mental health therapist Nano Kennedy at [facility] but was discharged from services partially for noncompliance and partially for behaviors. Sister states that pt has a mental health dx of Borderline Personality Disorder and has not managed well with her relationships for at least 20 yrs. Sister states that pt began to relapse and display increased mental health behaviors a year ago when her long time life Partner Eulalia of 18 yrs broke up with pt. Sister denies any knowledge of any official DPOA pwk. Pt's parents are both and she does not have any children and therefore pt's POA for medical decisions would be sister Tiffanie and only other family support is half-sister Jada [phone] who lives in [place]. Pt has a hx of about 5-6 hospitalizations for suicidal ideation or attempts. Over the past year, pt went to [facility] for opiate abuse tx as pt has been prescribed for pain meds for fibromyalgia but then began abusing them. Pt had some success after [facility] and discharged to an [facility] house but was kicked out for specific behaviors. Pt was also voluntarily admitted to [facility] tx at [facility] and a facility in [facility]. Pt has 3 firearms, two shotguns and one gun, that she has access to. Pt has had hx of plan of suicide by gun previously. Sister in the past went to the police department and filed an excessive risk order with the courts and had guns removed but they have since been turned back over to the patient. Therefore sister Tiffanie plans to file another Excessive Risk Order today to remove patient's guns from her possession. EVELYN explained ro process of Voluntary vs Involuntary mental health placement and need for pt to be extubated and A&O enough for bedside assessment. Sister states due to pt's personality disorder, she typically is quite manipulative and also can get fairly angry. SW to follow closely for eventual attempts at extubation towards assessing patient's discharge needs of voluntary vs involuntary. BF Original Note: Patient is a 48 yo female who was admitted on 01/11/23 for Intentional Overdose. Pt has [employer] and [employer] for insurance and her PCP is Kirby Olsen. EMR was reviewed. Per MD, pt with intentional overdose with multiple medications and alcohol and has hx of suicidal ideation and was found in her car unresponsive after sending family a msg about her suicide plan and was intubated and remains intubated. Pt not yet stable for weaning trial or extubation today but labs seem stable at this time. SW met bedside with pt's close friend Kaleb and he confirms that pt lives in [place] with Eulalia, who is pt's long time life partner of 18 yrs but they currently are not romantically together but now friends and roommates. Pt drives and is independent at baseline but not working. Friend Kaleb lives in [place] and pt usually stays with him and his 6 yo son on weekends just to get away and have some space from [place]. Kaleb confirms that he has know the pt for over 20 yrs and has been in contact with pt's youngest sister Tiffanie who lives in [place] and pt only has one other sibling Jada and pt has no children. SW waiting for sister Tiffanie to arrive bedside for further discussion and she should arrive bedside around 1200. DEREK Ledezma Discharge Planning/Care Management CM Discharge Assessment Start: 01/12/23 11:31 Freq: Status: Active Protocol: Document 01/12/23 11:31 BF (Rec: 01/12/23 11:44 BF [id number]) Discharge Planning Assessment Assigned Rural Mail Contractor DEREK Fernandez DPOA/Assigned Designee Name none Advance Directives? No Advance Directives on File No History Provided By Family Member,Medical Record Has Patient been admitted in last 30 No days? Prior Living Arrangements House Comment Sister Tiffanie is her support person Household Members friend(s) Comment ex-life partner at home, now more friend roommates. Type of transporation used prior to Drives own vehicle admit Independent with ADL's Yes Is patient alert and oriented? Yes Caregiver for Another No Barriers to Discharge Yes Comment intentional overdose, need to assess for MH needs post extubation Discharge Plan Psychiatric Facility Transportation Arrangement pending pt's safe discharge plan. Family vs BLS to Inpt MH tx Additional Comment Waiting for extubation Whiteboard Updated in Patient Room with Yes name and ext. # of Rural Mail Contractor Review Status In Process Please Provide Date Initial DC 01/12/23 Assessment Was Performed Next Review Type Continued Stay Review
[2023-01-12] MEDS: CHLORHEXIDINE GLUCONATE 15 ML CUP PO ×3 (12:00→23:54)
[2023-01-12 13:24] LABS: Alanine Aminotransferase 18 IU/L (<35); Albumin 2.4 g/dL (3.5-5.0); Albumin Globulin Ratio 0.9 (1.0-2.8); Alkaline Phosphatase 40 U/L (38-126); Aspartate Aminotransferase 24 IU/L (14-36); BUN Creatinine Ratio 9.1 (6-22); Bilirubin Total 0.6 mg/dL (0.2-1.3); Blood Urea Nitrogen 4 mg/dL (7-17); Calcium 8.2 mg/dL (8.4-10.2); Carbon Dioxide 20 mmol/L (22-32); Chloride 107 mmol/L (98-107); Estimated Glomerular Filt Rate > 60 mL/min (>60); Globulin 2.7 g/dL (1.7-4.1); Glucose 139 mg/dL (70-100); HEMOLYSIS 46 (0-50); Potassium 3.6 mmol/L (3.4-5.1); Sodium 133 mmol/L (137-145); Total Protein 5.1 g/dL (6.3-8.2)
[2023-01-12 14:05] LABS: Add Manual Diff / Slide Review NO; Basophils Absolute Auto 0 /uL (0-100); Basophils Percent Auto 0.6 % (0-2); Eosinophils Absolute Auto 100 /uL (0-450); Hematocrit 33.1 % (36-46); Hemoglobin 11.3 g/dL (12.0-16.0); Lymphocytes Absolute Auto 2200 /uL (1100-4500); Lymphocytes Percent Auto 30.8 % (25-40); Mean Corpuscular HGB Conc 34.3 % (30-36); Mean Corpuscular Hemoglobin 31.4 PG (26-34); Mean Corpuscular Volume 91.6 fL (80-100); Monocytes Absolute Auto 400 /uL (0-900); Monocytes Percent Auto 5.8 % (3-14); Neutrophils Absolute Auto 4300 /uL (1500-7000); Neutrophils Percent Auto 60.8 % (50-75); Platelet Count 221 X10^3/uL (150-400); Red Blood Cell Count 3.61 X10^6/uL (4.0-5.2); Red Cell Distribution Width 15.1 % (11.6-14.8); White Blood Cell Count 7.1 X10^3/uL (4.5-11.0)
[2023-01-12] MEDS: SODIUM CHLORIDE 0.9% 1,000 ML 75 ML IV (15:42)
[2023-01-12] MEDS: fentaNYL 1,000 MCG in DEXTROSE 5% IN WATER 230 ML 28.35 MCG IV (16:46)
[2023-01-12] MEDS: propofoL 1,000 MG/100 ML VIAL 30.696 MG IV ×3 (17:30→23:54)
--- NOTE | 2023-01-12 18:49 | P.ICUMDRN_ITS ---
- :: This patient was seen via real time interactive two-way audiovisual telecommunication. Note: Pt comfortable in bed, opes eyes on verbal stimulation, on Propofole & fentanyl drips, no acute concerns. RN at bed side.
--- NOTE | 2023-01-12 22:28 | PC.NURSE ---
Addendum entered by Brandie Espinoza R.N. 01/13/23 04:12: 0330- While moving patient up in the bed with her head down patient desaturated. Patient repositioned up to 30 degrees with continuation of desaturation. RT called. Patient bagged on 100% for approximately 1minute and a large plug was ejected from the ett. Specimen was sent to the lab. Patient given a treatment by respiratory therapy as it was noted that patient was coarse and wheezing R lung most prominent. Patient suctioned and lavaged. Secretions were thick and tenatious and morin in color. Lowest saturation appreciated was 46%. Patient resting quietly now no distress. Will monitor. Addendum entered by Brandie Espinoza R.N. 01/13/23 03:05: 0300-Patients neck is swollen where central line (right side) and IJ (left side) were attempted in Emergency. Tissue is soft but patient nods when asked if the area is tender, to indicate it is tender. Patient has a markus tone to her face and neck and dressings to both sites, so it is hard to appreciate any bruising. There is a slight dip in patient hemoglobin and hematocrit. Will monitor. Original Note: 2200- Patient will open her eyes and nod yes/no but not consistently. She becomes agitated when stimulated. Restraints on for safety. UOP good. Will monitor.
[2023-01-13] VITALS (58 sets, daily range): BP systolic 89–117; BP diastolic 51–72; PULSE 47–78; RESP 0–26; TEMP 35.4–36.6; O2SAT 90–100
[2023-01-13] MEDS: fentaNYL 1,000 MCG in DEXTROSE 5% IN WATER 230 ML 28.35 MCG IV ×3 (00:39→14:39)
[2023-01-13] MEDS: propofoL 1,000 MG/100 ML VIAL 30.696 MG IV ×2 (03:21→06:15)
[2023-01-13] MEDS: MIDAZOLAM 2 MG/2 ML VIAL IV ×3 (03:22→12:17)
[2023-01-13] MEDS: SODIUM CHLORIDE 0.9% 1,000 ML 75 ML IV (04:19)
[2023-01-13 05:27] LABS: Add Manual Diff / Slide Review NO; Basophils Absolute Auto 100 /uL (0-100); Eosinophils Absolute Auto 200 /uL (0-450); Eosinophils Percent Auto 2.6 % (2-4); Hematocrit 34.3 % (36-46); Hemoglobin 11.7 g/dL (12.0-16.0); Lymphocytes Absolute Auto 2200 /uL (1100-4500); Lymphocytes Percent Auto 31.2 % (25-40); Mean Corpuscular HGB Conc 34.1 % (30-36); Mean Corpuscular Hemoglobin 31.1 PG (26-34); Mean Corpuscular Volume 91.2 fL (80-100); Monocytes Absolute Auto 400 /uL (0-900); Monocytes Percent Auto 5.7 % (3-14); Neutrophils Absolute Auto 4200 /uL (1500-7000); Neutrophils Percent Auto 59.5 % (50-75); Platelet Count 220 X10^3/uL (150-400); Red Blood Cell Count 3.76 X10^6/uL (4.0-5.2); Red Cell Distribution Width 15.5 % (11.6-14.8)
[2023-01-13 05:42] LABS: Alanine Aminotransferase 17 IU/L (<35); Albumin 2.6 g/dL (3.5-5.0); Albumin Globulin Ratio 0.9 (1.0-2.8); Alkaline Phosphatase 42 U/L (38-126); Aspartate Aminotransferase 20 IU/L (14-36); Bilirubin Total 0.5 mg/dL (0.2-1.3); Calcium 8.3 mg/dL (8.4-10.2); Carbon Dioxide 20 mmol/L (22-32); Chloride 106 mmol/L (98-107); Estimated Glomerular Filt Rate > 60 mL/min (>60); Globulin 2.9 g/dL (1.7-4.1); Glucose 154 mg/dL (70-100); HEMOLYSIS 48 (0-50); Potassium 3.7 mmol/L (3.4-5.1); Sodium 131 mmol/L (137-145); Total Protein 5.5 g/dL (6.3-8.2)
[2023-01-13 05:45] LABS: BUN Creatinine Ratio 4.3 (6-22); Blood Urea Nitrogen 2 mg/dL (7-17)
[2023-01-13] MEDS: CHLORHEXIDINE GLUCONATE 15 ML CUP PO ×3 (06:16→17:54)
--- NOTE | 2023-01-13 07:13 | PM.PN.1 ---
Subjective Subjective Interval history: 48 yo female w/Class 3 obesity, ADD, IBS, fibromyalgia, asthma, DM2, DARON and depression/anxiety who was admitted after a polysubstance OD as a suicide attempt. This morning, RN noted swelling in the soft tissues neck. They do report there were several attempts for a central line placement. Patient does admit to feeling short of breath. She is quite restless and pulling her gown. Exam Vital Signs (past 8 hours): - 01/12/23 12:30 01/12/23 12:30 01/12/23 13:00 Temperature Pulse Rate 62 Respiratory Rate 16 Blood Pressure 104/62 108/66 Pulse Oximetry 95 Oxygen Delivery Method 01/12/23 13:00 01/12/23 13:30 01/12/23 13:30 Temperature Pulse Rate 61 60 Respiratory Rate 16 16 Blood Pressure 110/67 Pulse Oximetry 95 95 Oxygen Delivery Method 01/12/23 14:00 01/12/23 14:00 01/12/23 14:00 Temperature Pulse Rate 64 Respiratory Rate 16 Blood Pressure 122/77 Pulse Oximetry 96 Oxygen Delivery Method Mechanical Ventilation 01/12/23 14:30 01/12/23 14:30 01/12/23 15:00 Temperature Pulse Rate 63 60 Respiratory Rate 16 16 Blood Pressure 99/57 L Pulse Oximetry 96 96 Oxygen Delivery Method 01/12/23 15:00 01/12/23 15:30 01/12/23 15:30 Temperature Pulse Rate 59 L Respiratory Rate 16 Blood Pressure 98/60 109/66 Pulse Oximetry 97 Oxygen Delivery Method 01/12/23 16:00 01/12/23 16:00 01/12/23 16:30 Temperature Pulse Rate 61 Respiratory Rate 16 Blood Pressure 101/59 L 114/67 Pulse Oximetry 96 Oxygen Delivery Method 01/12/23 16:30 01/12/23 17:00 01/12/23 17:00 Temperature Pulse Rate 59 L 61 Respiratory Rate 16 16 Blood Pressure 107/63 Pulse Oximetry 96 96 Oxygen Delivery Method 01/12/23 17:01 01/12/23 17:30 01/12/23 17:30 Temperature 97.2 F L Pulse Rate 60 Respiratory Rate 16 Blood Pressure 103/67 Pulse Oximetry 97 Oxygen Delivery Method 01/12/23 18:00 01/12/23 18:00 01/12/23 18:00 Temperature Pulse Rate 57 L Respiratory Rate 16 Blood Pressure 107/66 Pulse Oximetry 96 Oxygen Delivery Method Mechanical Ventilation 01/12/23 18:30 01/12/23 18:30 01/12/23 19:00 Temperature Pulse Rate 64 Respiratory Rate 20 Blood Pressure 116/87 111/67 Pulse Oximetry 97 Oxygen Delivery Method 01/12/23 19:00 01/12/23 19:30 01/12/23 19:30 Temperature Pulse Rate 62 63 Respiratory Rate 16 16 Blood Pressure 103/64 Pulse Oximetry 95 95 Oxygen Delivery Method 01/12/23 20:00 01/12/23 20:00 Temperature 96.9 F L Pulse Rate 64 Respiratory Rate 16 Blood Pressure 102/65 Pulse Oximetry 95 Oxygen Delivery Method Fraction of Inspired Oxygen 40 Oxygen Delivery Method Mechanical Ventilation Oxygen Flow Rate 3 Narrative Exam Narrative: GEN: Alert and oriented to self, agitated HEENT:NC, Face symmetric CHEST: Respiratory excursions symmetric, coarse with wheezes to the right base CV: Bradycardic with regular rhythm, no M/R/G ABD: Soft, obese, mildly tender,, BT present in all 4 quadrants, body habitus limits exam EXTR: warm, well perfused, no C/C/E SKIN: warm and dry, no rash NEURO: Alert and oriented x 1, nonfocal Objective Labs 01/13/23 09:26 01/13/23 09:26 Labs: Laboratory Results - last 24 hr 01/11/23 01/11/23 01/11/23 16:46 22:13 23:10 WBC 7.6 RBC 3.88 L Hgb 12.1 Hct 36.1 MCV 93.0 MCH 31.1 MCHC 33.5 RDW 14.9 H Plt Count 250 Neut % (Auto) 57.8 Lymph % (Auto) 35.2 [place] % (Auto) 5.0 Eos % (Auto) 1.3 L Baso % (Auto) 0.7 Neut # (Auto) 4400 Lymph # (Auto) 2700 [place] # (Auto) 400 Eos # (Auto) 100 Baso # (Auto) 100 PT 14.6 H INR 1.3 APTT 30 ABG Sample Site ABG pH ABG pCO2 ABG pO2 ABG HCO3 ABG Total CO2 ABG O2 Saturation ABG Base Excess FiO2 Sodium 141 Potassium 3.0 L Chloride 110 H Carbon Dioxide 22 BUN 7 Creatinine 0.44 L Estimated GFR > 60 BUN/Creatinine Ratio 15.9 Glucose 89 Calcium 7.9 L Magnesium 2.1 Total Bilirubin 0.7 AST 18 ALT 22 Alkaline Phosphatase < 20 L CK-MB (CK-2) <1.0 Total Protein 5.4 L Albumin 2.8 L Globulin 2.6 Albumin/Globulin Ratio 1.1 Nasal Screen MRSA (PCR) Detected H Acetaminophen 17 01/12/23 01/12/23 01/12/23 04:50 11:22 12:17 WBC 8.6 7.1 RBC 3.87 L 3.61 L Hgb 11.8 L 11.3 L Hct 35.2 L 33.1 L MCV 91.1 91.6 MCH 30.5 31.4 MCHC 33.4 34.3 RDW 15.5 H 15.1 H Plt Count 234 221 Neut % (Auto) 63.5 60.8 Lymph % (Auto) 28.7 30.8 [place] % (Auto) 5.7 5.8 Eos % (Auto) 1.5 L 2.0 Baso % (Auto) 0.6 0.6 Neut # (Auto) 5500 4300 Lymph # (Auto) 2500 2200 [place] # (Auto) 500 400 Eos # (Auto) 100 100 Baso # (Auto) 0 0 PT 14.0 H INR 1.2 APTT 21 L D ABG Sample Site Left radial ABG pH 7.35 ABG pCO2 34.6 L ABG pO2 73 L ABG HCO3 19 L ABG Total CO2 20 L ABG O2 Saturation 94 L ABG Base Excess -6.0 L FiO2 28 Sodium 138 133 L Potassium 3.3 L 3.6 Chloride 109 H 107 Carbon Dioxide 22 20 L BUN 6 L 4 L Creatinine 0.42 L 0.44 L Estimated GFR > 60 > 60 BUN/Creatinine Ratio 14.3 9.1 Glucose 104 H 139 H Calcium 8.2 L 8.2 L Magnesium Total Bilirubin 0.5 0.6 AST 17 24 ALT 20 18 Alkaline Phosphatase 21 L 40 CK-MB (CK-2) Total Protein 5.4 L 5.1 L Albumin 2.7 L 2.4 L Globulin 2.7 2.7 Albumin/Globulin Ratio 1.0 0.9 L Nasal Screen MRSA (PCR) Acetaminophen < 10 PFSH Medical History Morbid obesity with body mass index (BMI) of 50.0 to 59.9 in adult (~09/26/17) ADD (attention deficit disorder) without hyperactivity Osteoarthritis Migraine Irritable bowel syndrome (IBS) Fibromyalgia Asthma Atherosclerosis of abdominal aorta Type 2 diabetes mellitus Depression Anxiety Primary insomnia Snoring Nocturnal hypoxemia Obstructive sleep apnea of adult Social History household members: friend(s) Assessment & Plan Assessment & Plan narrative: 1. Acute hypoxic respiratory failure Patient remains intubated. She is quite restless and has difficulty following commands. Discussed with Dr. Turpin, tele lecturer in computer science. Plans are to transition to Precedex to improve her overall sedation. Given the new soft tissue swelling, CT scan of the neck will be performed. 2. Polysubstance overdose as suicide attempt Pt reportedly took hydrocodone/APAP, oxycodone/APAP, diazepam, temazepam, nyquil, ambien, and Jeff's Hard lemonade. She received activated charcoal as well as n-acetylcysteine infusion. Poison control recommended the addition of benzodiazepine. I have added a as needed dose of Valium, due to the national shortage of lorazepam. QTC is 0.478 today 3. DM2 Not presently on any medications. She has been having low blood sugars today. Fluids switched back to D5 NS, but she continued to have low blood sugars. 25 g IV D50 given with overall improvement. If patient remains intubated tomorrow, will likely need to initiate enteral feeds 4. DARON I am uncertain if this is treated at baseline CODE Full Prophy On Lovenox Dispo ICU Quality VTE Deep Vein Thrombosis/Pulmonary Embolism Present on Admission: No
--- NOTE | 2023-01-13 07:22 | DI.CT.S_ITS ---
PROCEDURE: CT SOFT TISSUE NECK W CON INDICATIONS: swelling in the neck soft tissue TECHNIQUE: After the administration of intravenous contrast, 3.0 mm axial sections acquired from the sella to the aortic arch. Additional oblique axial 3.0 mm sections acquired through the pharynx. 3 mm thick coronal and sagittal reformats were generated. For radiation dose reduction, the following was used: automated exposure control. COMPARISON: None. FINDINGS: ET tube with tip in the thoracic inlet. Enteric tube courses down the esophagus off the field of view. Image quality: Excellent. Lymph nodes: Shotty lymph nodes throughout the cervical chains without jone lymphadenopathy. Vessels: Visualized vasculature appears patent. Neck spaces: Soft tissues collapse around the endotracheal tube making evaluation of the oral oropharynx difficult. There is asymmetry of the palatine tonsils, left greater than right with margins obscured. There is no fluid collection or organized abscess. Glands: The parotid and submandibular glands appear normal. Thyroid gland is diffusely heterogeneous with a right nodule measuring score 1.4 cm. Miscellaneous: Visualized brain and orbits appear normal. Atelectasis versus scarring within the bilateral apices. Superficial soft tissues appear normal. Bones: No suspicious bony lesions. Visualized sinuses and mastoids appear unremarkable. IMPRESSION: Asymmetry enlargement of the left palatine tonsil without abscess identified. No suspicious lymphadenopathy. Heterogeneous thyroid with small right nodule measuring 1.4 cm. Dictated by: Jeremy Valenzuela M.D. on 01/13/2023 at 9:04 Approved by: Jeremy Valenzuela M.D. on 01/13/2023 at 9:13
--- NOTE | 2023-01-13 07:24 | DI.RAD.S_ITS ---
PROCEDURE: XR CHEST 1V INDICATIONS: intubated pt, lung sound changes TECHNIQUE: One view of the chest was acquired. COMPARISON: [facility], CR, XR CHEST 1V, 01/11/2023, 17:08. [facility], CR, XR CHEST 1V, 01/11/2023, 18:14. [facility], CR, XR CHEST FOR PICC 1V, 01/12/2023, 10:23. [facility], CR, XR CHEST 1V, 01/11/2023, 19:28. FINDINGS: Surgical changes and devices: There is an endotracheal tube 2.5 cm above memo. A nasogastric tube is seen with the tip in the stomach. There is a left PICC with the tip projecting to the area of SVC Lungs and pleura: Focal infiltrate in the left lower lobe suspicious for pneumonia. No large pleural effusions or pneumothorax. Mediastinum: Mediastinal contours appear normal. Heart size is mildly enlarged. Bones and chest wall: No suspicious bony lesions. Overlying soft tissues appear unremarkable. IMPRESSION: 1. Tubes and lines are as described. 2. Left lower lobe infiltrate suspicious for pneumonia. Dictated by: Raya Riley M.D. on 01/13/2023 at 8:53 Approved by: Raya Riley M.D. on 01/13/2023 at 8:56
[2023-01-13] MEDS: propofoL 1,000 MG/100 ML VIAL 34.533 MG IV ×3 (08:31→13:56)
[2023-01-13] MEDS: ENOXAPARIN 40 MG/0.4 ML SYRINGE SUBCUT ×2 (09:00→21:05)
[2023-01-13] MEDS: PANTOPRAZOLE 40 MG VIAL IV (09:00)
[2023-01-13 09:33] LABS: Add Manual Diff / Slide Review NO; Basophils Absolute Auto 100 /uL (0-100); Basophils Percent Auto 1.2 % (0-2); Eosinophils Absolute Auto 100 /uL (0-450); Eosinophils Percent Auto 2.2 % (2-4); Hematocrit 32.2 % (36-46); Lymphocytes Absolute Auto 2000 /uL (1100-4500); Lymphocytes Percent Auto 30.3 % (25-40); Mean Corpuscular HGB Conc 34.1 % (30-36); Mean Corpuscular Hemoglobin 31.6 PG (26-34); Mean Corpuscular Volume 92.6 fL (80-100); Monocytes Absolute Auto 400 /uL (0-900); Monocytes Percent Auto 5.6 % (3-14); Neutrophils Absolute Auto 4000 /uL (1500-7000); Neutrophils Percent Auto 60.7 % (50-75); Platelet Count 197 X10^3/uL (150-400); Red Blood Cell Count 3.47 X10^6/uL (4.0-5.2); Red Cell Distribution Width 15.6 % (11.6-14.8); White Blood Cell Count 6.6 X10^3/uL (4.5-11.0)
[2023-01-13 09:47] LABS: Alanine Aminotransferase 16 IU/L (<35); Albumin 2.4 g/dL (3.5-5.0); Albumin Globulin Ratio 0.9 (1.0-2.8); Alkaline Phosphatase 38 U/L (38-126); Aspartate Aminotransferase 20 IU/L (14-36); Bilirubin Total 0.5 mg/dL (0.2-1.3); Carbon Dioxide 21 mmol/L (22-32); Chloride 106 mmol/L (98-107); Estimated Glomerular Filt Rate > 60 mL/min (>60); Globulin 2.7 g/dL (1.7-4.1); Glucose 138 mg/dL (70-100); Potassium 3.5 mmol/L (3.4-5.1); Sodium 132 mmol/L (137-145); Total Protein 5.1 g/dL (6.3-8.2)
[2023-01-13 09:52] LABS: BUN Creatinine Ratio 4.7 (6-22); Blood Urea Nitrogen 2 mg/dL (7-17); HEMOLYSIS 56 (0-50)
[2023-01-13] MEDS: PIPERACILLIN/TAZO 4.5 GM in SODIUM CHLORIDE 0.9% 100 ML IV ×3 (10:00→22:03)
--- NOTE | 2023-01-13 10:13 | P.TELICUPN_ITS ---
Subjective Subjective IF CAMERA ACTIVATED, patient seen via real-time interactive audiovisual communication: Camera activated Consent obtained for tele-senior games technician care: Yes Patient Location: ICU Provider location (State): [place] Other participants/roles: RN Interval history: pt remains intubatged and sedated. passing SAT, but SBT held due to hematoma from TLC placement. during bedsice eval,m she had a + leak test. CT neck read is pending Current Medications Current Medications Medications: Home Medications OMEPRAZOLE 20 mg PO Q DAY ##0 11/23/09 [History] Visit Medications (administered) Generic Name Dose Route Start Last Admin Trade Name Freq PRN Reason Stop Dose Admin Chlorhexidine Gluconate 15 ml 01/12/23 12:00 01/13/23 06:16 Chlorhexidine Gluconate 15 Ml Cup PO 15 ml Q6HR TEE Administration Enoxaparin Sodium 40 mg 01/12/23 10:15 01/12/23 20:32 Enoxaparin 40 Mg/0.4 Ml Syringe SUBCUT 40 mg BID TEE Administration Naloxone HCl 2 mg/ Sodium 500 mls @ 62.5 mls/hr 01/11/23 17:15 01/11/23 18:00 Chloride IV 0 mg/hr TITRATE TEE 0 mls/hr Infusion 0.25 MG/HR NOREPINEPHRINE BITARTRATE/D5W 4 mg in 250 mls @ 47.967 mls/hr 01/11/23 17:37 01/11/23 21:00 Levophed IV 0 mcg/kg/min TITRATE TEE 0 mls/hr Titration Protocol 0.1 MCG/KG/MIN Propofol 1,000 mg in 100 mls @ 3.837 mls/hr 01/11/23 20:30 01/13/23 08:31 Propofol IV 45 mcg/kg/min TITRATE TEE 34.533 mls/hr Administration Protocol 5 MCG/KG/MIN Fentanyl 1,000 mcg/ Dextrose 250 mls @ 22.05 mls/hr 01/12/23 09:00 01/13/23 07:58 IV 0.9 mcg/kg/hr TITRATE TEE 28.35 mls/hr Administration Protocol 0.7 MCG/KG/HR Sodium Chloride 1,000 mls @ 75 mls/hr 01/12/23 15:15 01/13/23 04:19 Normal Saline 0.9% IV 75 mls/hr CONT TEE Administration Midazolam HCl 2 mg 01/12/23 09:01 01/13/23 07:58 Midazolam 2 Mg/2 Ml Vial IV 2 mg Q2HR PRN Administration Agitation Pantoprazole Sodium 40 mg 01/12/23 09:00 01/12/23 08:13 Pantoprazole 40 Mg Vial IV 40 mg DAILY TEE Administration Objective Ventilator Parameters: Ventilator Settings FiO2 26 RT Vent Frequency 16 Ventilator Tidal Volume 480 Exhaled Positive End Expiratory 5 Pressure Inspiratory Phase Time 0.90 I:E Ratio 1:3.2 Patient Position HOB >= 30 degrees Labs 01/13/23 09:26 01/13/23 09:26 Labs: Laboratory Results - last 24 hr 01/12/23 01/12/23 01/13/23 11:22 12:17 05:15 WBC 7.1 7.0 RBC 3.61 L 3.76 L Hgb 11.3 L 11.7 L Hct 33.1 L 34.3 L MCV 91.6 91.2 MCH 31.4 31.1 MCHC 34.3 34.1 RDW 15.1 H 15.5 H Plt Count 221 220 Neut % (Auto) 60.8 59.5 Lymph % (Auto) 30.8 31.2 [place] % (Auto) 5.8 5.7 Eos % (Auto) 2.0 2.6 Baso % (Auto) 0.6 1.0 Neut # (Auto) 4300 4200 Lymph # (Auto) 2200 2200 [place] # (Auto) 400 400 Eos # (Auto) 100 200 Baso # (Auto) 0 100 ABG Sample Site Left radial ABG pH 7.35 ABG pCO2 34.6 L ABG pO2 73 L ABG HCO3 19 L ABG Total CO2 20 L ABG O2 Saturation 94 L ABG Base Excess -6.0 L FiO2 28 Sodium 133 L 131 L Potassium 3.6 3.7 Chloride 107 106 Carbon Dioxide 20 L 20 L BUN 4 L 2 L Creatinine 0.44 L 0.46 L Estimated GFR > 60 > 60 BUN/Creatinine Ratio 9.1 4.3 L Glucose 139 H 154 H Calcium 8.2 L 8.3 L Total Bilirubin 0.6 0.5 AST 24 20 ALT 18 17 Alkaline Phosphatase 40 42 Total Protein 5.1 L 5.5 L Albumin 2.4 L 2.6 L Globulin 2.7 2.9 Albumin/Globulin Ratio 0.9 L 0.9 L 01/13/23 09:26 WBC 6.6 RBC 3.47 L Hgb 11.0 L Hct 32.2 L MCV 92.6 MCH 31.6 MCHC 34.1 RDW 15.6 H Plt Count 197 Neut % (Auto) 60.7 Lymph % (Auto) 30.3 [place] % (Auto) 5.6 Eos % (Auto) 2.2 Baso % (Auto) 1.2 Neut # (Auto) 4000 Lymph # (Auto) 2000 [place] # (Auto) 400 Eos # (Auto) 100 Baso # (Auto) 100 ABG Sample Site ABG pH ABG pCO2 ABG pO2 ABG HCO3 ABG Total CO2 ABG O2 Saturation ABG Base Excess FiO2 Sodium 132 L Potassium 3.5 Chloride 106 Carbon Dioxide 21 L BUN 2 L Creatinine 0.43 L Estimated GFR > 60 BUN/Creatinine Ratio 4.7 L Glucose 138 H Calcium 8.0 L Total Bilirubin 0.5 AST 20 ALT 16 Alkaline Phosphatase 38 Total Protein 5.1 L Albumin 2.4 L Globulin 2.7 Albumin/Globulin Ratio 0.9 L Exam Vital Signs (past 8 hours): - 01/13/23 02:30 01/13/23 02:30 01/13/23 03:00 Temperature Pulse Rate 59 L Respiratory Rate 16 Blood Pressure 94/52 L 99/56 L Pulse Oximetry 94 Oxygen Delivery Method 01/13/23 03:00 01/13/23 03:30 01/13/23 03:31 Temperature Pulse Rate 52 L 60 Respiratory Rate 16 17 Blood Pressure 113/71 Pulse Oximetry 99 99 Oxygen Delivery Method 01/13/23 03:31 01/13/23 04:00 01/13/23 04:00 Temperature 97.8 F Pulse Rate 63 65 Respiratory Rate 18 16 Blood Pressure 115/68 Pulse Oximetry 97 95 Oxygen Delivery Method 01/13/23 04:30 01/13/23 04:31 01/13/23 04:31 Temperature Pulse Rate 71 69 Respiratory Rate 19 22 Blood Pressure 117/68 Pulse Oximetry 95 98 Oxygen Delivery Method 01/13/23 05:00 01/13/23 05:00 01/13/23 05:30 Temperature Pulse Rate 62 61 Respiratory Rate 16 17 Blood Pressure 109/64 Pulse Oximetry 97 96 Oxygen Delivery Method 01/13/23 05:31 01/13/23 05:31 01/13/23 06:00 Temperature Pulse Rate 63 Respiratory Rate 16 Blood Pressure 105/61 Pulse Oximetry 95 Oxygen Delivery Method Mechanical Ventilation 01/13/23 06:00 01/13/23 06:00 01/13/23 06:30 Temperature Pulse Rate 64 Respiratory Rate 17 Blood Pressure 106/61 102/59 L Pulse Oximetry 90 L Oxygen Delivery Method 01/13/23 06:30 01/13/23 07:00 01/13/23 07:00 Temperature Pulse Rate 58 L 59 L Respiratory Rate 16 16 Blood Pressure 97/60 Pulse Oximetry 93 92 Oxygen Delivery Method 01/13/23 07:30 01/13/23 08:00 01/13/23 08:00 Temperature Pulse Rate 74 58 L Respiratory Rate 26 H 16 Blood Pressure 99/57 L Pulse Oximetry 98 94 Oxygen Delivery Method 01/13/23 08:15 01/13/23 09:00 01/13/23 09:30 Temperature 95.8 F L Pulse Rate 54 L 53 L Respiratory Rate 16 Blood Pressure Pulse Oximetry 100 94 Oxygen Delivery Method Fraction of Inspired Oxygen 40 Oxygen Delivery Method Mechanical Ventilation Oxygen Flow Rate 3 Narrative Exam Narrative: intubated/sedated Neck Other: swollen Resp Other: synchronous with vent Cardio Other: rate controlled Quality TeleICU VTE Deep Vein Thrombosis/Pulmonary Embolism Present on Admission: No Assessment & Plan Assessment and plan (1) Metabolic acidosis: Status: Acute (2) Suicide attempt by inadequate means: Qualifiers: Encounter type: initial encounter Qualified Code(s): X83.8XXA - Intentional self-harm by other specified means, initial encounter Status: Acute (3) Benzodiazepine (tranquilizer) overdose: Qualifiers: Encounter type: initial encounter Injury intent: intentional self-harm Qualified Code(s): T42.4X2A - Poisoning by benzodiazepines, intentional self- harm, initial encounter Status: Acute (4) Respiratory failure requiring intubation: Status: Acute (5) Suicide attempt: Status: Acute (6) Narcotic overdose: Qualifiers: Encounter type: initial encounter Injury intent: intentional self-harm Qualified Code(s): T40.602A - Poisoning by unspecified narcotics, intentional self-harm, initial encounter Status: Acute (7) Overdose by acetaminophen: Qualifiers: Encounter type: initial encounter Injury intent: intentional self-harm Qualified Code(s): T39.1X2A - Poisoning by 4-Aminophenol derivatives, intentional self-harm, initial encounter Status: Acute (8) Morbid obesity with body mass index (BMI) of 50.0 to 59.9 in adult: Status: Chronic (9) Nocturnal hypoxemia: Problem details: status unknown Status: Chronic (10) Obstructive sleep apnea of adult: Status: Chronic Assessment & Plan narrative: vent/sedation bundle - will add precedex as it shoulkd eb staryted if her CT neck is without any hematoma causing tracheal compromise wean off propofol and fentanyl map goal >65 NPO trend bmp and monitor UO on empiric abx, cx are negaitve, will send procal for de-escalation dvt ppx Gi ppx # Lines/tubes: PIV, Carlson, ET tube, OG tube, CVC # CODE STATUS: Full code # Disposition: Remains in ICU total critical care time 35 min Time Spent With Patient Time with patient: 30 to 49 minutes with 50% spent counseling/coordinating care
[2023-01-13] MEDS: POTASSIUM CHLORIDE 20 MEQ/15 ML UDC 40 MEQ TUBE (11:00)
[2023-01-13] MEDS: ALBUTEROL 2.5 MG/3 ML NEB (ADULT) INH ×4 (11:21→23:05)
[2023-01-13] MEDS: dexmedeTOMIDine in 0.9 % NaCL 400 MCG/100 ML PLAST..BAG 6.25 MCG IV (13:53)
[2023-01-13] MEDS: DEXTROSE 5%-0.9% NS 1,000 ML 75 ML IV (13:55)
--- NOTE | 2023-01-13 15:43 | CM.DPC ---
DCP Cont: Per MD, pt remains quite agitated if not sedated well and remains on vent and likely will not attempt to extubate until maybe tomorrow if pt stable. Pt now with pneumonia and started on IV-Abx and swelling in her neck from attempts at central line. Sister/informal JANA Moreno had work today and not bedside but has Sun and Sunday off work and will likely be bedside and available for support and assist. Plan: SW to follow closely for eventual attempts at extubation and then when pt less sedated and more medically appropriate to participate in MH assessment and discharge planning towards anticipated need of Inpt MH tx. Rebecca Jurado MSW
--- NOTE | 2023-01-13 16:46 | PC.NURSE ---
Addendum entered by Sonia Cruz R.N. 01/13/23 18:47: Rechecked BG now 115 Addendum entered by Sonia Cruz R.N. 01/13/23 18:27: 1800 BG was 65, notified Dr Rubi, order placed for 50% Dextrose, 25g/50ml, administered as ordered, will recheck BG in 15 minutes Original Note: Day shift note: Pt resting in bed, will open eyes, track people, and will answer yes and no questions, but not consistently. Still becomes agitated with and without stimulation. Restraints remain in place for safety. Pt taken to CT for evaluation of neck swelling due to attempted central line placement bilaterally in the ED and CXR for daily check of intubated pt, bagged during transport and CT, VSS remained stable, pt tolerated well. Waiting for reports. Precedex started for additional coverage for agitation, attempting to titrate prop and fentanyl in anticipation of possible extubation tomorrow. BG 65, notified provider, changed fluids to D5NS, follow up BG was 97, no further needs at this time
[2023-01-13] MEDS: propofoL 1,000 MG/100 ML VIAL 26.859 MG IV (17:00)
[2023-01-13] MEDS: DEXTROSE 50 % IN WATER 25 GM/50 ML SYRINGE IV (18:21)
[2023-01-13] MEDS: VANCOMYCIN 1,000 MG/200 ML PIGGYBACK 200 MG IV (19:53)
--- NOTE | 2023-01-13 20:11 | P.ICUMDRN_ITS ---
- Date Patient Seen: 01/13/23 Time Patient Seen: 20:11 :: This patient was seen via real time interactive two-way audiovisual telecommunication. Note: Passed SBT but held due to hematoma around TLC site. CT neck -> asymmetry enla rgement of the left palatine tonsil without abscess identified. Will plan for SBT tomorrow.
[2023-01-13] MEDS: propofoL 1,000 MG/100 ML VIAL 23.022 MG IV (20:36)
[2023-01-13] MEDS: dexmedeTOMIDine in 0.9 % NaCL 400 MCG/100 ML PLAST..BAG 18.75 MCG IV (21:04)
[2023-01-13] MEDS: fentaNYL 1,000 MCG in DEXTROSE 5% IN WATER 230 ML 22.05 MCG IV (23:21)
[2023-01-14] VITALS (58 sets, daily range): BP systolic 95–146; BP diastolic 59–88; PULSE 43–69; RESP 0–27; TEMP 36.7; O2SAT 83–97
[2023-01-14] MEDS: CHLORHEXIDINE GLUCONATE 15 ML CUP PO ×5 (00:50→23:40)
[2023-01-14] MEDS: propofoL 1,000 MG/100 ML VIAL 19.185 MG IV ×2 (01:32→05:57)
[2023-01-14] MEDS: VANCOMYCIN 1,000 MG/200 ML PIGGYBACK 200 MG IV ×3 (02:50→19:35)
[2023-01-14] MEDS: DEXTROSE 5%-0.9% NS 1,000 ML 75 ML IV ×2 (02:50→16:13)
[2023-01-14] MEDS: dexmedeTOMIDine in 0.9 % NaCL 400 MCG/100 ML PLAST..BAG 12.5 MCG IV (04:17)
[2023-01-14 04:36] LABS: Add Manual Diff / Slide Review NO; Basophils Absolute Auto 100 /uL (0-100); Basophils Percent Auto 0.9 % (0-2); Eosinophils Absolute Auto 200 /uL (0-450); Eosinophils Percent Auto 2.5 % (2-4); Hematocrit 34.1 % (36-46); Hemoglobin 11.4 g/dL (12.0-16.0); Lymphocytes Absolute Auto 1800 /uL (1100-4500); Lymphocytes Percent Auto 27.5 % (25-40); Mean Corpuscular HGB Conc 33.3 % (30-36); Mean Corpuscular Hemoglobin 30.4 PG (26-34); Mean Corpuscular Volume 91.3 fL (80-100); Monocytes Absolute Auto 400 /uL (0-900); Monocytes Percent Auto 5.6 % (3-14); Neutrophils Absolute Auto 4200 /uL (1500-7000); Neutrophils Percent Auto 63.5 % (50-75); Platelet Count 194 X10^3/uL (150-400); Red Blood Cell Count 3.74 X10^6/uL (4.0-5.2); Red Cell Distribution Width 15.5 % (11.6-14.8); White Blood Cell Count 6.6 X10^3/uL (4.5-11.0)
[2023-01-14 04:45] LABS: Alanine Aminotransferase 15 IU/L (<35); Albumin 2.5 g/dL (3.5-5.0); Albumin Globulin Ratio 0.9 (1.0-2.8); Alkaline Phosphatase 52 U/L (38-126); Aspartate Aminotransferase 13 IU/L (14-36); BUN Creatinine Ratio 4.3 (6-22); Bilirubin Total 0.5 mg/dL (0.2-1.3); Blood Urea Nitrogen < 2 mg/dL (7-17); Calcium 8.4 mg/dL (8.4-10.2); Carbon Dioxide 20 mmol/L (22-32); Chloride 112 mmol/L (98-107); Estimated Glomerular Filt Rate > 60 mL/min (>60); Globulin 2.8 g/dL (1.7-4.1); Glucose 172 mg/dL (70-100); HEMOLYSIS < 15 (0-50); Potassium 3.6 mmol/L (3.4-5.1); Sodium 136 mmol/L (137-145); Total Protein 5.3 g/dL (6.3-8.2)
[2023-01-14] MEDS: PIPERACILLIN/TAZO 4.5 GM in SODIUM CHLORIDE 0.9% 100 ML IV (05:56)
--- NOTE | 2023-01-14 08:54 | P.PN_ITS ---
Subjective Subjective Interval history: 48 yo female w/Class 3 obesity, ADD, IBS, fibromyalgia, asthma, DM2, DARON and depression/anxiety who was admitted after a polysubstance OD as a suicide attempt. Still vented and sedated. Precedex added for hopeful extubation on 01/15. Sputum culture growing staph aureus. Repeat ordered. Exam Vital Signs (past 8 hours): - 01/14/23 01:00 01/14/23 01:00 01/14/23 01:30 Pulse Rate 55 L Respiratory Rate 16 Blood Pressure 104/64 106/68 Pulse Oximetry 94 Oxygen Delivery Method 01/14/23 01:30 01/14/23 02:00 01/14/23 02:00 Pulse Rate 52 L Respiratory Rate 16 Blood Pressure 108/70 Pulse Oximetry 94 Oxygen Delivery Method Mechanical Ventilation 01/14/23 02:00 01/14/23 02:30 01/14/23 02:30 Pulse Rate 49 L 50 L Respiratory Rate 16 16 Blood Pressure 107/68 Pulse Oximetry 94 94 Oxygen Delivery Method 01/14/23 03:00 01/14/23 03:00 01/14/23 03:30 Pulse Rate 52 L 51 L Respiratory Rate 16 16 Blood Pressure 106/69 Pulse Oximetry 94 95 Oxygen Delivery Method 01/14/23 03:30 01/14/23 04:00 01/14/23 04:00 Pulse Rate 51 L Respiratory Rate 16 Blood Pressure 110/70 111/71 Pulse Oximetry 96 Oxygen Delivery Method 01/14/23 04:29 01/14/23 04:30 01/14/23 04:30 Pulse Rate 54 L 53 L Respiratory Rate 16 16 Blood Pressure 109/72 Pulse Oximetry 95 95 Oxygen Delivery Method 01/14/23 05:00 01/14/23 05:00 01/14/23 05:30 Pulse Rate 52 L Respiratory Rate 16 Blood Pressure 113/73 114/74 Pulse Oximetry 96 Oxygen Delivery Method 01/14/23 05:30 01/14/23 06:00 Pulse Rate 52 L Respiratory Rate 16 Blood Pressure Pulse Oximetry 95 Oxygen Delivery Method Mechanical Ventilation Fraction of Inspired Oxygen 40 Oxygen Delivery Method Mechanical Ventilation Oxygen Flow Rate 3 Narrative Exam Narrative: GEN: Vented and sedated. HEENT:NC, Face symmetric CHEST: Respiratory excursions symmetric, coarse with wheezes to the right base CV: Bradycardic with regular rhythm, no M/R/G ABD: Soft, obese, mildly tender,, BT present in all 4 quadrants, body habitus limits exam EXTR: warm, well perfused, no C/C/E SKIN: warm and dry, no rash NEURO: Sedated, nonfocal Objective Labs 01/14/23 04:20 01/14/23 04:20 Labs: Laboratory Results - last 24 hr 01/13/23 01/14/23 09:26 04:20 WBC 6.6 6.6 RBC 3.47 L 3.74 L Hgb 11.0 L 11.4 L Hct 32.2 L 34.1 L MCV 92.6 91.3 MCH 31.6 30.4 MCHC 34.1 33.3 RDW 15.6 H 15.5 H Plt Count 197 194 Neut % (Auto) 60.7 63.5 Lymph % (Auto) 30.3 27.5 [place] % (Auto) 5.6 5.6 Eos % (Auto) 2.2 2.5 Baso % (Auto) 1.2 0.9 Neut # (Auto) 4000 4200 Lymph # (Auto) 2000 1800 [place] # (Auto) 400 400 Eos # (Auto) 100 200 Baso # (Auto) 100 100 Sodium 132 L 136 L Potassium 3.5 3.6 Chloride 106 112 H Carbon Dioxide 21 L 20 L BUN 2 L < 2 L Creatinine 0.43 L 0.46 L Estimated GFR > 60 > 60 BUN/Creatinine Ratio 4.7 L 4.3 L Glucose 138 H 172 H Calcium 8.0 L 8.4 Total Bilirubin 0.5 0.5 AST 20 13 L ALT 16 15 Alkaline Phosphatase 38 52 Total Protein 5.1 L 5.3 L Albumin 2.4 L 2.5 L Globulin 2.7 2.8 Albumin/Globulin Ratio 0.9 L 0.9 L [facility] Medical History Morbid obesity with body mass index (BMI) of 50.0 to 59.9 in adult (~09/26/17) ADD (attention deficit disorder) without hyperactivity Osteoarthritis Migraine Irritable bowel syndrome (IBS) Fibromyalgia Asthma Atherosclerosis of abdominal aorta Type 2 diabetes mellitus Depression Anxiety Primary insomnia Snoring Nocturnal hypoxemia Obstructive sleep apnea of adult Social History household members: friend(s) Assessment & Plan Assessment & Plan narrative: 1. Acute hypoxic respiratory failure, with L neck soft tissue swelling Patient remains intubated. She is quite restless and has difficulty following commands. Precedex added. CT neck showed some soft tissue swelling of L tonsil, which may have been from multiple attempts at CVC and infection less likely. Good air-leak on vent. 2. Polysubstance overdose as suicide attempt Pt reportedly took hydrocodone/APAP, oxycodone/APAP, diazepam, temazepam, nyquil, ambien, and Jeff's Hard lemonade. She received activated charcoal as well as n-acetylcysteine infusion. Poison control recommended the addition of benzodiazepine. I have added a as needed dose of Valium, due to the national shortage of lorazepam. QTC is reassuring. 3. DM2 Not presently on any medications. She has been having low blood sugars. Fluids switched back to D5-NS, but she continued to have low blood sugars. If patient remains intubated tomorrow, will likely need to initiate enteral feeds. 4. DARON I am uncertain if this is treated at baseline 5. VAP CXR with LLL infiltrate and sputum growing staph aureus. No leukocytosis or fevers however. Continue vanc and zosyn. Repeat sputum culture pending. Blood cultures negative. CODE Full Prophy On Lovenox I spent a total of 35 minutes of critical care time on this patient's care today; this time is exclusive of procedural time. Dispo ICU Quality VTE Deep Vein Thrombosis/Pulmonary Embolism Present on Admission: No
[2023-01-14] MEDS: VANCOMYCIN TROUGH 1 REQUEST MISC (09:30)
[2023-01-14] MEDS: ENOXAPARIN 40 MG/0.4 ML SYRINGE SUBCUT ×2 (09:54→20:59)
[2023-01-14] MEDS: PANTOPRAZOLE 40 MG VIAL IV (09:54)
[2023-01-14 10:06] LABS: Vancomycin Trough 14.2 ug/mL (10-20)
[2023-01-14] MEDS: dexmedeTOMIDine in 0.9 % NaCL 400 MCG/100 ML PLAST..BAG 15.625 MCG IV (10:54)
[2023-01-14] MEDS: ALBUTEROL 2.5 MG/3 ML NEB (ADULT) INH ×3 (11:00→19:42)
[2023-01-14] MEDS: MIDAZOLAM 2 MG/2 ML VIAL IV (11:15)
[2023-01-14] MEDS: fentaNYL 1,000 MCG in DEXTROSE 5% IN WATER 230 ML 22.05 MCG IV (11:53)
--- NOTE | 2023-01-14 11:56 | PM.PN.EICU ---
Subjective Subjective IF CAMERA ACTIVATED, patient seen via real-time interactive audiovisual communication: Camera activated Consent obtained for tele-pairer substandard care: Yes Patient Location: ICU Provider location (State): [place] Other participants/roles: RN Interval history: pt remians intubted and sedated. propofol and fentanyl are being weaned off. PRecedex started. she is still not following commands well. Current Medications Current Medications Medications: Home Medications OMEPRAZOLE 20 mg PO Q DAY ##0 11/23/09 [History] Visit Medications (administered) Generic Name Dose Route Start Last Admin Trade Name Freq PRN Reason Stop Dose Admin Albuterol 2.5 mg 01/13/23 11:00 01/14/23 11:00 Albuterol 2.5 Mg/3 Ml Neb (Adult) INH 2.5 mg [id number] TEE Administration Chlorhexidine Gluconate 15 ml 01/12/23 12:00 01/14/23 11:16 Chlorhexidine Gluconate 15 Ml Cup PO 15 ml Q6HR TEE Administration Enoxaparin Sodium 40 mg 01/12/23 10:15 01/14/23 09:54 Enoxaparin 40 Mg/0.4 Ml Syringe SUBCUT 40 mg BID TEE Administration Propofol 1,000 mg in 100 mls @ 3.837 mls/hr 01/11/23 20:30 01/14/23 10:40 Propofol IV 10 mcg/kg/min TITRATE TEE 7.674 mls/hr Titration Protocol 5 MCG/KG/MIN Fentanyl 1,000 mcg/ Dextrose 250 mls @ 22.05 mls/hr 01/12/23 09:00 01/14/23 11:53 IV 0.7 mcg/kg/hr TITRATE TEE 22.05 mls/hr Administration Protocol 0.7 MCG/KG/HR Piperacillin Sod/Tazobactam 100 mls @ 25 mls/hr 01/13/23 14:00 01/14/23 09:56 Sod 4.5 gm/ Sodium Chloride IV 01/14/23 12:00 Infused Q8H TEE Infusion Vancomycin HCl 1,000 mg in 200 mls @ 200 mls/hr 01/13/23 19:00 01/14/23 11:15 Vancomycin IV 200 mls/hr Q8H TEE Administration Dextrose/Sodium Chloride 1,000 mls @ 75 mls/hr 01/13/23 13:15 01/14/23 02:50 Dextrose 5%-0.9% Ns IV 75 mls/hr CONT TEE Administration dexmedeTOMIDine in 0.9 % NaCL 400 mcg in 100 mls @ 6.25 mls/hr 01/13/23 13:30 01/14/23 10:54 Precedex IV 0.5 mcg/kg/hr TITRATE TEE 15.625 mls/hr Administration Protocol 0.2 MCG/KG/HR Midazolam HCl 2 mg 01/12/23 09:01 01/14/23 11:15 Midazolam 2 Mg/2 Ml Vial IV 2 mg Q2HR PRN Administration Agitation Pantoprazole Sodium 40 mg 01/12/23 09:00 01/14/23 09:54 Pantoprazole 40 Mg Vial IV 40 mg DAILY TEE Administration Objective Ventilator Parameters: Ventilator Settings FiO2 26 RT Vent Frequency 16 Ventilator Tidal Volume 480 Exhaled Positive End Expiratory 5 Pressure Inspiratory Phase Time 0.90 I:E Ratio 1:3.2 Patient Position HOB >= 30 degrees Labs 01/14/23 04:20 01/14/23 04:20 Labs: Laboratory Results - last 24 hr 01/14/23 01/14/23 04:20 09:27 WBC 6.6 RBC 3.74 L Hgb 11.4 L Hct 34.1 L MCV 91.3 MCH 30.4 MCHC 33.3 RDW 15.5 H Plt Count 194 Neut % (Auto) 63.5 Lymph % (Auto) 27.5 [place] % (Auto) 5.6 Eos % (Auto) 2.5 Baso % (Auto) 0.9 Neut # (Auto) 4200 Lymph # (Auto) 1800 [place] # (Auto) 400 Eos # (Auto) 200 Baso # (Auto) 100 Sodium 136 L Potassium 3.6 Chloride 112 H Carbon Dioxide 20 L BUN < 2 L Creatinine 0.46 L Estimated GFR > 60 BUN/Creatinine Ratio 4.3 L Glucose 172 H Calcium 8.4 Total Bilirubin 0.5 AST 13 L ALT 15 Alkaline Phosphatase 52 Total Protein 5.3 L Albumin 2.5 L Globulin 2.8 Albumin/Globulin Ratio 0.9 L Vancomycin Trough 14.2 Exam Vital Signs (past 8 hours): - 01/14/23 04:00 01/14/23 04:00 01/14/23 04:29 Pulse Rate 51 L 54 L Respiratory Rate 16 16 Blood Pressure 111/71 Pulse Oximetry 96 95 Oxygen Delivery Method 01/14/23 04:30 01/14/23 04:30 01/14/23 05:00 Pulse Rate 53 L Respiratory Rate 16 Blood Pressure 109/72 113/73 Pulse Oximetry 95 Oxygen Delivery Method 01/14/23 05:00 01/14/23 05:30 01/14/23 05:30 Pulse Rate 52 L 52 L Respiratory Rate 16 16 Blood Pressure 114/74 Pulse Oximetry 96 95 Oxygen Delivery Method 01/14/23 06:00 01/14/23 10:00 Pulse Rate Respiratory Rate Blood Pressure Pulse Oximetry Oxygen Delivery Method Mechanical Ventilation Mechanical Ventilation Fraction of Inspired Oxygen 40 Oxygen Delivery Method Mechanical Ventilation Oxygen Flow Rate 3 Narrative Exam Narrative: intubated/sedated Resp Other: synchronous with vent, symmtric chest rise Cardio Other: rate controlled Quality TeleICU VTE Deep Vein Thrombosis/Pulmonary Embolism Present on Admission: No Assessment & Plan Assessment and plan (1) Metabolic acidosis: Status: Acute (2) Suicide attempt by inadequate means: Qualifiers: Encounter type: initial encounter Qualified Code(s): X83.8XXA - Intentional self-harm by other specified means, initial encounter Status: Acute (3) Benzodiazepine (tranquilizer) overdose: Qualifiers: Encounter type: initial encounter Injury intent: intentional self-harm Qualified Code(s): T42.4X2A - Poisoning by benzodiazepines, intentional self-harm, initial encounter Status: Acute (4) Respiratory failure requiring intubation: Status: Acute (5) Suicide attempt: Status: Acute (6) Narcotic overdose: Qualifiers: Encounter type: initial encounter Injury intent: intentional self-harm Qualified Code(s): T40.602A - Poisoning by unspecified narcotics, intentional self-harm, initial encounter Status: Acute (7) Overdose by acetaminophen: Qualifiers: Encounter type: initial encounter Injury intent: intentional self-harm Qualified Code(s): T39.1X2A - Poisoning by 4-Aminophenol derivatives, intentional self-harm, initial encounter Status: Acute (8) Morbid obesity with body mass index (BMI) of 50.0 to 59.9 in adult: Status: Chronic (9) Nocturnal hypoxemia: Problem details: status unknown Status: Chronic (10) Obstructive sleep apnea of adult: Status: Chronic Assessment & Plan narrative: vent/sedation bundle wean off propofol and fentanyl. continue precedex there is assymtic tonsillar enlargement, though I dont think thi having sandra issues as there is a good leak and is on appropriate abx map goal >65 can resume TF trend bmp and monitor UO cont zosyn dvt ppx Gi ppx # Lines/tubes: PIV, Carlson, ET tube, OG tube, CVC # CODE STATUS: Full code # Disposition: Remains in ICU total critical care time 35 min Time Spent With Patient Time with patient: 30 to 49 minutes with 50% spent counseling/coordinating care
[2023-01-14] MEDS: VANCOMYCIN PEAK 1 REQUEST MISC (13:36)
[2023-01-14] MEDS: propofoL 1,000 MG/100 ML VIAL 7.674 MG IV (13:46)
[2023-01-14] MEDS: PIPERACILLIN/TAZO 3.375 GM in SODIUM CHLORIDE 0.9% 100 ML IV ×2 (14:50→21:41)
[2023-01-14 14:59] LABS: Vancomycin Peak 20.6 ug/mL (20-40)
[2023-01-14] MEDS: dexmedeTOMIDine in 0.9 % NaCL 400 MCG/100 ML PLAST..BAG 25 MCG IV ×3 (15:47→23:40)
--- NOTE | 2023-01-14 18:02 | CM.DPNOTE ---
DCP continued SALES TRAINING MANAGER reviewed EMR. Pt remains ventilated at this time. SALES TRAINING MANAGER notified sister here and requested to chat with SW team. SALES TRAINING MANAGER entered room and introduced self and role to sister at bedside, Tiffanie. Tiffanie reports unable to complete Extreme Risk Protection Order Sunday and will do so Sunday morning. Tiffanie reports she is next of kin but not POA. SALES TRAINING MANAGER had lengthy conversation with Tiffanie answering questions best as able about Medicaid/SSI versus SSDI/DCR/MH diagnosis/MH treatments/POA paperwork/additional factors in sister's potential dcp. SALES TRAINING MANAGER provided print out resources for more information on Medicaid/DCR/DPOA/MH treatment. SALES TRAINING MANAGER answered questions best as able to different possible outcomes for involuntary versus voluntary. Sister believes best fit for pt would be dual diagnosis inpt facility for substance use and suicidal ideation. Tiffanie reports pt has been increasing in behaviors over the past year. Pt and romantic partner broke up 14 months ago but they remain to live together. Tiffanie unsure if pt is getting SSI benefits with Medicaid. reports this is pt's 5th attempt on her life over many years. Sister is going to try and get list of Hx of Tx facilities and dates. Unable to meet with pt due to her being ventilated and resting. Plan: DCP will continue to unfold as pt improves medically. DCR will be called closer to being medically stable to dc. Likely will need dual diagnosis facility. CM team will continue to follow closely/interview patient for dcp when able. DEREK Bernal
--- NOTE | 2023-01-14 20:20 | PM.ICURNDS ---
- Date Patient Seen: 01/14/23 Time Patient Seen: 20:20 :: This patient was seen via real time interactive two-way audiovisual telecommunication. Note: Patient remains intubated and sedated. Transitioned to precedex gtt. Will try SBT in the morning. D/w bedside RN.
[2023-01-15] VITALS (57 sets, daily range): BP systolic 92–145; BP diastolic 57–87; PULSE 44–98; RESP 13–33; TEMP 36; O2SAT 86–97
[2023-01-15] MEDS: fentaNYL 1,000 MCG in DEXTROSE 5% IN WATER 230 ML 18.9 MCG IV
[2023-01-15] MEDS: propofoL 1,000 MG/100 ML VIAL 7.674 MG IV (01:12)
[2023-01-15] MEDS: VANCOMYCIN 1,000 MG/200 ML PIGGYBACK 200 MG IV (02:36)
[2023-01-15] MEDS: dexmedeTOMIDine in 0.9 % NaCL 400 MCG/100 ML PLAST..BAG 21.875 MCG IV (03:15)
[2023-01-15 05:23] LABS: Add Manual Diff / Slide Review NO; Basophils Absolute Auto 100 /uL (0-100); Basophils Percent Auto 0.9 % (0-2); Eosinophils Absolute Auto 200 /uL (0-450); Eosinophils Percent Auto 2.4 % (2-4); Hematocrit 36.9 % (36-46); Lymphocytes Absolute Auto 1900 /uL (1100-4500); Lymphocytes Percent Auto 24.5 % (25-40); Mean Corpuscular HGB Conc 32.6 % (30-36); Mean Corpuscular Volume 91.8 fL (80-100); Monocytes Absolute Auto 400 /uL (0-900); Monocytes Percent Auto 5.9 % (3-14); Neutrophils Absolute Auto 5000 /uL (1500-7000); Neutrophils Percent Auto 66.3 % (50-75); Platelet Count 215 X10^3/uL (150-400); Red Blood Cell Count 4.02 X10^6/uL (4.0-5.2); Red Cell Distribution Width 15.3 % (11.6-14.8); White Blood Cell Count 7.6 X10^3/uL (4.5-11.0)
[2023-01-15 05:34] LABS: Alanine Aminotransferase 14 IU/L (<35); Albumin 2.7 g/dL (3.5-5.0); Albumin Globulin Ratio 0.9 (1.0-2.8); Alkaline Phosphatase 60 U/L (38-126); Aspartate Aminotransferase 14 IU/L (14-36); BUN Creatinine Ratio 3.9 (6-22); Bilirubin Total 1.1 mg/dL (0.2-1.3); Blood Urea Nitrogen 2 mg/dL (7-17); Calcium 8.7 mg/dL (8.4-10.2); Carbon Dioxide 20 mmol/L (22-32); Chloride 111 mmol/L (98-107); Estimated Glomerular Filt Rate > 60 mL/min (>60); Glucose 135 mg/dL (70-100); HEMOLYSIS < 15 (0-50); Potassium 3.8 mmol/L (3.4-5.1); Sodium 136 mmol/L (137-145); Total Protein 5.7 g/dL (6.3-8.2)
[2023-01-15] MEDS: CHLORHEXIDINE GLUCONATE 15 ML CUP PO (05:37)
[2023-01-15] MEDS: DEXTROSE 5%-0.9% NS 1,000 ML 75 ML IV (05:37)
[2023-01-15] MEDS: PIPERACILLIN/TAZO 3.375 GM in SODIUM CHLORIDE 0.9% 100 ML IV (05:37)
--- NOTE | 2023-01-15 05:57 | PC.NURSE ---
Facsimile Machine Operator Note-Patient remains on ventilator, no changes from previous settings: FIO2 .28, TV 480, Peep 5, RR 16. Sedated throughout night riding the vent. Precedex at 0.8mcg/kg/hr, Fentanyl at 0.6mcg/kg/hr, both titrated down slightly until 0545 when patient woke up anxious, propofol also titrated up from 10 to 15mcg/kg/min, see Emar. Patient able to write on paper. Wrote I had a DNR DNI See notes in patients room. Tube feed of Jevity 1.2 increased to 30ml/hr at 2200, 240ml charcoal mixed residual at 0300, bowel sounds very hypoactive, tube feed left at 30ml/hr.
[2023-01-15] MEDS: ALBUTEROL 2.5 MG/3 ML NEB (ADULT) INH ×3 (07:45→15:31)
[2023-01-15] MEDS: PANTOPRAZOLE 40 MG VIAL IV (08:00)
[2023-01-15] MEDS: ENOXAPARIN 40 MG/0.4 ML SYRINGE SUBCUT ×2 (08:00→21:30)
[2023-01-15] MEDS: dexmedeTOMIDine in 0.9 % NaCL 400 MCG/100 ML PLAST..BAG 25 MCG IV ×5 (08:01→23:39)
--- NOTE | 2023-01-15 08:37 | PM.PN.EICU ---
Subjective Subjective IF CAMERA ACTIVATED, patient seen via real-time interactive audiovisual communication: Camera activated Consent obtained for tele-tufting machine operator single needle care: Yes Patient Location: ICU Provider location (State): [place] Other participants/roles: RN, Hospitalist Interval history: Patient Summary: 48 years old female with PMH Of DM, DARON, obesity, Fibromyalgia, IBS, asthma, Depression, and Anxiety admitted 01/11/23 for polysustance overdose (pt reported taking Vicodin, Percocet, Valium, Ambien, Nyquil, Jeff's hard Lemonade and tox screen was positive for opiates, benzos, THC, and TCA). She was noted prolonged QTc and received bicarbonate treatment with improvement in QTc. She was intubated for airway protection. Poison control was contacted and she was started on high-dose NAC protocol. Reportedly, patient had prior suicidal attempts as well. She was admitted to ICU for further management. Initial workup was unremarkable except lactic acid 2.5, slight elevated AST of 43 but patient of the LFTs were unremarkable. Salicylate level was less than 1.0. Acetaminophen level was high at 50. Ethyl alcohol level was high at 14. 01/13: Soft tissue neck CT done for L soft tissue neck swelling and it showed L palatine tonsil swelling but no abscess 01/14:Sputum Cx 01/13 grew Staph A. Dex drip added and propofol and fentanyl weaned down. Recent Events: Patient awake and communicating by writing. ON SBP 6/5 her VT is >350 and RR is 14. She writes that she is DNR. I told her we want to optimize conditions before extubating. Current Medications Current Medications Medications: Home Medications OMEPRAZOLE 20 mg PO Q DAY ##0 11/23/09 [History] Visit Medications (administered) Generic Name Dose Route Start Last Admin Trade Name Freq PRN Reason Stop Dose Admin Albuterol 2.5 mg 01/13/23 11:00 01/15/23 08:00 Albuterol 2.5 Mg/3 Ml Neb (Adult) INH Not Given [id number] TEE Chlorhexidine Gluconate 15 ml 01/12/23 12:00 01/15/23 05:37 Chlorhexidine Gluconate 15 Ml Cup PO 15 ml Q6HR TEE Administration Enoxaparin Sodium 40 mg 01/12/23 10:15 01/15/23 08:00 Enoxaparin 40 Mg/0.4 Ml Syringe SUBCUT 40 mg BID TEE Administration Propofol 1,000 mg in 100 mls @ 3.837 mls/hr 01/11/23 20:30 01/15/23 07:06 Propofol IV 12 mcg/kg/min TITRATE TEE 9.209 mls/hr Titration Protocol 5 MCG/KG/MIN Fentanyl 1,000 mcg/ Dextrose 250 mls @ 22.05 mls/hr 01/12/23 09:00 01/15/23 05:55 IV 0.6 mcg/kg/hr TITRATE TEE 18.9 mls/hr Titration Protocol 0.7 MCG/KG/HR Vancomycin HCl 1,000 mg in 200 mls @ 200 mls/hr 01/13/23 19:00 01/15/23 04:15 Vancomycin IV Infused Q8H TEE Infusion Dextrose/Sodium Chloride 1,000 mls @ 75 mls/hr 01/13/23 13:15 01/15/23 05:37 Dextrose 5%-0.9% Ns IV 75 mls/hr CONT TEE Administration dexmedeTOMIDine in 0.9 % NaCL 400 mcg in 100 mls @ 6.25 mls/hr 01/13/23 13:30 01/15/23 08:01 Precedex IV 0.8 mcg/kg/hr TITRATE TEE 25 mls/hr Administration Protocol 0.2 MCG/KG/HR Piperacillin Sod/Tazobactam 100 mls @ 25 mls/hr 01/14/23 14:00 01/15/23 05:37 Sod 3.375 gm/ Sodium Chloride IV 25 mls/hr Q8H TEE Administration Midazolam HCl 2 mg 01/12/23 09:01 01/14/23 11:15 Midazolam 2 Mg/2 Ml Vial IV 2 mg Q2HR PRN Administration Agitation Pantoprazole Sodium 40 mg 01/12/23 09:00 01/15/23 08:00 Pantoprazole 40 Mg Vial IV 40 mg DAILY TEE Administration Objective Ventilator Parameters: Ventilator Settings FiO2 26 RT Vent Frequency 16 Ventilator Tidal Volume 480 Exhaled Positive End Expiratory 5 Pressure Inspiratory Phase Time 0.9 I:E Ratio 1:3.2 Patient Position HOB >= 30 degrees Labs 01/15/23 05:00 01/15/23 05:00 Labs: Laboratory Results - last 24 hr 01/14/23 01/14/23 01/15/23 09:27 13:35 05:00 WBC 7.6 RBC 4.02 Hgb 12.0 Hct 36.9 MCV 91.8 MCH 30.0 MCHC 32.6 RDW 15.3 H Plt Count 215 Neut % (Auto) 66.3 Lymph % (Auto) 24.5 L [place] % (Auto) 5.9 Eos % (Auto) 2.4 Baso % (Auto) 0.9 Neut # (Auto) 5000 Lymph # (Auto) 1900 [place] # (Auto) 400 Eos # (Auto) 200 Baso # (Auto) 100 Sodium 136 L Potassium 3.8 Chloride 111 H Carbon Dioxide 20 L BUN 2 L Creatinine 0.51 L Estimated GFR > 60 BUN/Creatinine Ratio 3.9 L Glucose 135 H Calcium 8.7 Total Bilirubin 1.1 AST 14 ALT 14 Alkaline Phosphatase 60 Total Protein 5.7 L Albumin 2.7 L Globulin 3.0 Albumin/Globulin Ratio 0.9 L Vancomycin Peak 20.6 Vancomycin Trough 14.2 Exam Vital Signs (past 8 hours): - 01/15/23 01:00 01/15/23 01:00 01/15/23 01:30 Pulse Rate 47 L 47 L Respiratory Rate 16 16 Blood Pressure 139/87 Pulse Oximetry 96 96 Oxygen Delivery Method 01/15/23 02:00 01/15/23 02:00 01/15/23 02:30 Pulse Rate 47 L 44 L Respiratory Rate 16 16 Blood Pressure 144/82 H Pulse Oximetry 97 97 Oxygen Delivery Method 01/15/23 03:00 01/15/23 03:00 01/15/23 03:30 Pulse Rate 45 L 45 L Respiratory Rate 16 16 Blood Pressure 144/86 H Pulse Oximetry 97 97 Oxygen Delivery Method 01/15/23 04:00 01/15/23 04:00 01/15/23 04:00 Pulse Rate 46 L Respiratory Rate 16 Blood Pressure 138/84 Pulse Oximetry 97 Oxygen Delivery Method Mechanical Ventilation 01/15/23 04:30 01/15/23 05:00 01/15/23 05:01 Pulse Rate 46 L 47 L Respiratory Rate 16 16 Blood Pressure 131/81 Pulse Oximetry 97 96 Oxygen Delivery Method 01/15/23 05:01 01/15/23 05:30 01/15/23 06:00 Pulse Rate 47 L 63 Respiratory Rate 16 23 Blood Pressure 110/64 Pulse Oximetry 96 95 Oxygen Delivery Method 01/15/23 06:00 01/15/23 06:30 01/15/23 07:00 Pulse Rate 62 54 L Respiratory Rate 17 16 Blood Pressure 114/73 Pulse Oximetry 94 93 Oxygen Delivery Method 01/15/23 07:00 01/15/23 08:00 Pulse Rate 49 L Respiratory Rate 16 Blood Pressure Pulse Oximetry 94 Oxygen Delivery Method Mechanical Ventilation Fraction of Inspired Oxygen 40 Oxygen Delivery Method Mechanical Ventilation Oxygen Flow Rate 97.1 Narrative Exam Narrative: patient is alert and communicating by writing messages Quality TeleICU VTE Deep Vein Thrombosis/Pulmonary Embolism Present on Admission: No Assessment & Plan Assessment & Plan narrative: Assessment Polysubstance overdose Depression/Anxiety h/o of suicide attempt Acute respiratory failure requiring intubation for airway protection L neck soft tissue swelling-CT shows palatine tonsil swelling, no abscess Sputum culture grew MSSA 11/13 DARON Obesity Asthma DM Plan POWER GENERATION TECHNICIAN/Psych: propofol and Fentayl drip turned off for SBT -wean Dex drip down as tolerated -Psych consult for depression/suicidal attempt CV: Patient bradycardic at times, probably related to Dex drip Pulm: check ABG 30 min after SBT, if ABG wnl plan to extubate ID: afebrile, no leukocytosis - narrow abx coverage to Ancef given culture grew MSSA FEN/Renal: stable renal function -hold maintence IVF GI/nutrition:tube feeds on hold for SBT Endo: BG within normal limits in last few days PPX: protonix, Lovenox Code status: FULL CODE at this time. Patient expresses she is DNR but given she is suicidal/depressed patient will remain FULL CODE for now till Psych assesses. CCT spent 55 min
[2023-01-15 09:46] LABS: Magnesium 1.5 mg/dL (1.6-2.3)
[2023-01-15 11:13] LABS: Allen Test for ABG Passed? Yes, Passed; Blood Gas Collection Site Right Radial; Fractionated Inspired Oxygen 26; HCO3 ABG 18 mmol/L (23-27); Oxygen Saturation ABG 86 % (95-100); PCO2 ABG 32.6 mmHg (35-45); PO2 ABG 54 mmHg (80-100); TCO2 ABG 19 mmol/L (23-27); pH ABG 7.34 (7.35-7.45)
[2023-01-15] MEDS: CEFAZOLIN 2 GM/100 ML PREMIX 100 ML IV ×2 (11:32→16:55)
[2023-01-15] MEDS: MAGNESIUM SULFATE 4 GM/100 ML PIGGYBACK IV (11:33)
[2023-01-15] MEDS: ONDANSETRON 4 MG/2 ML INJ IV (11:35)
--- NOTE | 2023-01-15 11:41 | CM.DPNOTE ---
Addendum entered by DEREK Lubin 01/15/23 12:18: ADD: Patient extubated and participating in care and conversation this morning. Patient still remains lethargic and is speaking very quietly. Reviewed patient's preference for contacts. Patient able to update her contact list as follows: patient requests that Eulalia Metcalf be removed from her contact list (patient and Eulalia remain roommates). First to contact should be friend Claudine Mcclelland P# [phone]. Additional contacts requested to be listed in chart are therapist Nano Kennedy P# [phone], and sister Tiffanie Denis P# [phone] MAISHA Original Note: DCP Note Dr Manjarrez, psychiatrist, has received a consult request and hopeful to complete consult today if patient can participate. Patient extubated this morning and writing requests down on paper. According to discussion in multidisciplinary rounds, patient has requested to be DNR. This request will not be obliged at this time related to the circumstance under which patient was admitted- suicidal ideation, suicide attempt by intentional overdose on [place]. This SW team will plan to follow closely for assist w/dispo planning, coordination w/DCR etc. Record review shows family is hopeful for inpatient dual diagnosis placement. MAISHA
--- NOTE | 2023-01-15 12:18 | P.CONS_ITS ---
History of Present Illness Consult details Date Patient Seen: 01/16/23 Time Patient Seen: 08:20 Chief complaint: OD Reason for consult: Suicide attempt by overdose Requesting provider: Nico Dietz Narrative: REFERRAL INFORMATION This is the latest of several psychiatric evaluation for this 48-year-old female referred by the inpatient ICU service for evaluation of depression in the context of severe suicide attempt by overdose. RECORDS REVIEW The patient?s referral documents, medical records and intake questionnaire were reviewed as part of this evaluation. CHIEF COMPLAINT ?I just wanted to go home. But I am ready to do what it takes to get out of my own head.? HISTORY OF PRESENT ILLNESS This is the latest of several psychiatric evaluations for the patient has a very long psychiatric history that dates back to childhood. She reported that she was doing fairly well until November of 2021 when she broke up with her of over 17 years which was related to her opiates use. In December of 2021 she went into rehab and following that went into a recovery home and was there until July of 2022. She had been able to maintain sobriety until July of 2022, but then was kicked out of [facility] (sobriety home) due to some interpersonal conflict with other residents. At the time, she was also being seen at [facility] by both a psychiatrist and a therapist. The therapist apparently diagnosed her with borderline personality disorder at that time. The patient was admitted to [facility] for suicidal ideation in May of 2022 and then again admitted in July of 2022 also in the context of suicidal ideation and intoxication as she had then relapsed from sobriety and began drinking alcohol. She reported that that time she was dealing with a combination of a number of things that included multiple relationships and relationship conflict and was questioning whether she was more depressed when she was sober when she was using. In terms of current symptoms, the patient denies any history of adolfo or hypomania despite stating that she has in the past been diagnosed with bipolar disorder. She also complains of some mild generalized anxiety, but denies any difficulty with panic attacks. Her most significant symptoms are mostly depressive including: * Mood: Sad, down, depressed mood * Activity/anhedonia: Denies any difficulty with inability to enjoy activities * Appetite/weight change: Loss of appetite and significant weight loss, over 100 lb. * Sleep: Both initial and middle insomnia. * Motor: Denies any psychomotor slowing * Energy: Endorses no energy or motivation to do anything * Emotions: Endorses negative emotions, feelings of low self-esteem, hopelessness, helplessness, worthlessness. * Concentration: Endorses poor concentration. And distractibility * Suicidal ideation/Safety: Most recently significant suicidal ideation with actual overdose of multiple medications in the context of being drunk. The patient had been planning her suicide attempt for months and had been stashing away numerous medications including several controlled substances, saving them for this attempt. When she finally decided to commit suicide, she became intoxicated and took Vicodin, Percocet, Valium, Restoril, NyQuil, Ambien, and washed all down with Jeff's hard lemonade. In the emergency department she was noted to have UDS positive for opiates, benzodiazepines, marijuana, and tricyclics. She was also noted to have a prolonged QT interval was given bicarbonate and this improved the situation. She had a Tylenol level of 50 and was started on NAC per poison control and repeat Tylenol levels have gone down. LFTs were not elevated. The patient was intubated and admitted to the ICU. Three days later, the patient was extubated after being stabilized, and initially interviewed but given her hoarseness following intubation was difficult to interview. Further interview was completed today. PAST PSYCHIATRIC HISTORY * Diagnoses: Possible diagnosis of bipolar disorder, more recent diagnosis of borderline personality disorder and major depressive disorder. Had been seen extensively at [facility] for about the last year. * Inpatient: 2 prior inpatient admissions this year as noted above and has had prior inpatient admissions earlier in her life as well * Outpatient: Has been seen on and off for several episodes of care with both psychologists and psychiatrists and other mental health professionals since the age of 8. * Suicide Attempts: Multiple suicide attempt and multiple episodes of suicidal ideation. PREVIOUS PSYCHIATRIC MEDICATION TRIALS The patient reports trials of numerous psychotropic medications including multiple SSRIs, lithium, and other medications that she can not remember at this point. Currently we are contacting [facility], and [facility] for records. CURRENT PSYCHOTROPIC MEDICATIONS On admission was taking lamotrigine 450 mg p.o. b.i.d. stopped taking in late December Haloperidol 2 mg p.o. b.i.d. as needed for anxiety and agitation also listed is not generally been taking it but uses it rarely for agitation Topiramate 200 mg p.o. b.i.d. stopped taking in late December Trazodone 150 mg p.o. q.h.s. stopped taking in late December FAMILY HISTORY * Maternal: Denies any maternal psychiatric history * Paternal: Denies any paternal psychiatric history * Siblings: Some possible history of addictions in sisters, but other psychiatric history denied. SUBSTANCE USE HISTORY * Tobacco: Former smoker and smoked a pack of day from age [age]. * Alcohol: Patient reported that until the last 6 months, she was a casual drinker and never abused alcohol. In the last 6 months she started drinking and began gradually increasing until last 3 months she was drinking up to a 5th of hard liquor a day. * Drugs: The patient reported that she smoked marijuana regularly and was also an opiate user until last year when she went to rehab in December of 2021 DEVELOPMENTAL AND SOCIAL HISTORY * Family Constellation/Environment: The patient is the middle child of 3 sisters born to an intact family. 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 * Childhood Trauma: The patient denied any history of physical or sexual abuse, and has no history of witnessing violence as a child. * Developmental milestones: The patient reached normal developmental milestones. Although had some difficulty with behavior issues throughout childhood which resulted in initially being seen by mental health starting at age 8 or 9. * Education: The patient was an adequate student in school and graduated from high school. Did not go to college immediately after high school but later returned and obtained an AA degree in late 30s. 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 * Current Living: Currently living in her excess home on the upper floor. * Support: Income from employment. * Legal: No current legal difficulties. HISTORY * None. * Deployments: N/A * Combat Exposure: N/A * Blast Exposure: N/A Meds Home Medications and Allergies Home Medications Medication Instructions Recorded Confirmed Type OMEPRAZOLE 20 mg PO Q DAY ##0 11/23/09 History haloperidol 2 mg tablet 2 mg PO BID PRN anxiety attack 01/15/23 01/15/23 History lamotrigine 100 mg tablet 450 mg PO BID 01/15/23 01/15/23 History levothyroxine 200 mcg tablet 200 mcg PO DAILY 01/15/23 01/15/23 History sumatriptan succinate 50 mg tablet mg PO PRN PRN Migraine Headache 01/15/23 History topiramate 200 mg tablet 200 mg PO BID 01/15/23 01/15/23 History trazodone 150 mg tablet 150 mg PO ONCE PM 01/15/23 01/15/23 History liraglutide 0.6 mg/0.1 mL (18 mg/3 1.8 mg SUBCUT DAILY 01/16/23 01/16/23 History mL) subcutaneous pen injector ([employer] 2-Jorden) Allergies Allergy/AdvReac Type Severity Reaction Status Date / Time No Allergy Information Allergy Verified 01/11/23 22:44 Available Exam Vital Signs (past 8 hours): - 01/15/23 04:30 01/15/23 05:00 01/15/23 05:01 Temperature Pulse Rate 46 L 47 L Respiratory Rate 16 16 Blood Pressure 131/81 Pulse Oximetry 97 96 Oxygen Delivery Method Oxygen Flow Rate 01/15/23 05:01 01/15/23 05:30 01/15/23 06:00 Temperature Pulse Rate 47 L 63 Respiratory Rate 16 23 Blood Pressure 110/64 Pulse Oximetry 96 95 Oxygen Delivery Method Oxygen Flow Rate 01/15/23 06:00 01/15/23 06:30 01/15/23 07:00 Temperature Pulse Rate 62 54 L Respiratory Rate 17 16 Blood Pressure 114/73 Pulse Oximetry 94 93 Oxygen Delivery Method Oxygen Flow Rate 01/15/23 07:00 01/15/23 07:30 01/15/23 07:45 Temperature Pulse Rate 49 L 47 L Respiratory Rate 16 16 Blood Pressure 118/70 Pulse Oximetry 94 94 Oxygen Delivery Method Oxygen Flow Rate 01/15/23 07:45 01/15/23 08:00 01/15/23 08:00 Temperature 96.8 F L Pulse Rate 46 L Respiratory Rate 16 Blood Pressure 107/68 Pulse Oximetry 95 Oxygen Delivery Method Mechanical Ventilation Oxygen Flow Rate 01/15/23 08:00 01/15/23 08:30 01/15/23 09:00 Temperature Pulse Rate 57 L 63 Respiratory Rate 16 16 Blood Pressure 92/57 L Pulse Oximetry 93 92 Oxygen Delivery Method Oxygen Flow Rate 01/15/23 09:00 01/15/23 09:30 01/15/23 10:00 Temperature Pulse Rate 64 68 98 H Respiratory Rate 16 17 25 H Blood Pressure Pulse Oximetry 92 96 91 Oxygen Delivery Method Oxygen Flow Rate 01/15/23 10:30 01/15/23 10:30 01/15/23 11:00 Temperature Pulse Rate 65 72 Respiratory Rate 19 20 Blood Pressure Pulse Oximetry 91 92 89 L Oxygen Delivery Method Nasal Cannula Oxygen Flow Rate 01/15/23 11:30 01/15/23 11:30 01/15/23 12:00 Temperature Pulse Rate 75 75 Respiratory Rate 15 18 Blood Pressure Pulse Oximetry 92 93 92 Oxygen Delivery Method Nasal Cannula Oxygen Flow Rate 2 01/15/23 12:13 01/15/23 12:14 Temperature Pulse Rate 76 Respiratory Rate 21 Blood Pressure 113/67 Pulse Oximetry 93 Oxygen Delivery Method Oxygen Flow Rate Fraction of Inspired Oxygen 40 Oxygen Delivery Method Nasal Cannula Oxygen Flow Rate 2 Narrative Exam Narrative: MENTAL STATUS EXAM * Appearance: The patient is obese female who appears stated age. * Grooming: Patient is dressed in [facility] and seen lying in her bed. * Eye Contact: Good * Behavior: Calm and cooperative with the examination. * Motor Movement: No abnormal motor movements noted. * Gait: Not tested * Speech: Normal rate, volume, tone, and tabby. Perhaps somewhat soft in tone. * Mood: Tired, optimistic. * Affect: Pleasant, cooperative, but constricted and mildly dysphoric. Congruent with thought content and with normal range and reactivity. * Thought Process: Linear, logical, and goal-directed. * Thought Content: Denies any current SI/HI, intent, or plan, but does report some regret initially that her attempt was not successful. No evidence of any psychosis. * Attention: Attentive to interview * Orientation: Oriented to person, place, time, and circumstance. * Memory: Intact for interview, not formally tested. * Insight: Fair * Judgment: Fair * Impulse Control: Intact on examination Objective Labs 01/16/23 04:15 01/16/23 04:15 Labs: Laboratory Results - last 24 hr 01/14/23 01/15/23 01/15/23 13:35 05:00 10:20 WBC 7.6 RBC 4.02 Hgb 12.0 Hct 36.9 MCV 91.8 MCH 30.0 MCHC 32.6 RDW 15.3 H Plt Count 215 Neut % (Auto) 66.3 Lymph % (Auto) 24.5 L [place] % (Auto) 5.9 Eos % (Auto) 2.4 Baso % (Auto) 0.9 Neut # (Auto) 5000 Lymph # (Auto) 1900 [place] # (Auto) 400 Eos # (Auto) 200 Baso # (Auto) 100 ABG Sample Site Right radial ABG pH 7.34 L ABG pCO2 32.6 L ABG pO2 54 L ABG HCO3 18 L ABG Total CO2 19 L ABG O2 Saturation 86 L ABG Base Excess -8.0 L FiO2 26 Sodium 136 L Potassium 3.8 Chloride 111 H Carbon Dioxide 20 L BUN 2 L Creatinine 0.51 L Estimated GFR > 60 BUN/Creatinine Ratio 3.9 L Glucose 135 H Calcium 8.7 Magnesium 1.5 L Total Bilirubin 1.1 AST 14 ALT 14 Alkaline Phosphatase 60 Total Protein 5.7 L Albumin 2.7 L Globulin 3.0 Albumin/Globulin Ratio 0.9 L Vancomycin Peak 20.6 PFSH Medical History Morbid obesity with body mass index (BMI) of 50.0 to 59.9 in adult (~09/26/17) ADD (attention deficit disorder) without hyperactivity Osteoarthritis Migraine Irritable bowel syndrome (IBS) Fibromyalgia Asthma Atherosclerosis of abdominal aorta Type 2 diabetes mellitus Depression Anxiety Primary insomnia Snoring Nocturnal hypoxemia Obstructive sleep apnea of adult Social History household members: friend(s) Assessment & Plan Assessment and plan (1) Suicide attempt: Status: Acute (2) Major depressive disorder, recurrent severe without psychotic features: Status: Acute Assessment & Plan narrative: ASSESSMENT/MEDICAL DECISION MAKING The patient is a 48-year-old female with a very long mental health history that dates back to childhood. The patient has had multiple episodes of psychiatric care throughout her life and reports difficulty with a number of addictive behaviors. She is had significant difficulty within the last year with a collapse of her relationship, failure of rehab, worsening depression, diagnosis of borderline personality disorder, and 2 prior psychiatric hospitalizations in May and July. Over the course of the summer and fall, the patient began stockpiling medications for a plan to suicide attempt to occur on her birthday ([birth year] She had a good phone call with a friend so she put it often the next day, but then wrote a 4 page suicide note to her sister and finally went through with her plan on January 11. My main concern is that, the patient continues to have significant untreated depressive symptoms, has demonstrated the potential for lethality, was planning this act for months, was stockpiling medications, and was not engaged productively with her therapists at [facility]. RECOMMENDATIONS: 1. The patient requires psychiatric admission following medical stabilization. 2. Recommend that the designated crisis responder be consulted in order to place the patient on the appropriate hold. 3. The patient reported that lamotrigine was helpful to her, but discontinued it in preparation for this suicide attempt. Recommend resuming lamotrigine at 25 mg daily. 4. We will obtain records from [facility] to get more information on her prior psychiatric treatment and determine next steps. Time Spent With Patient Time with patient: 50 to 69 minutes with 50% spent counseling/coordinating care
[2023-01-15] MEDS: MAG HYDROX/ALUMINUM/SIMETH SUS 20 ML, LIDOCAINE VISCOUS 2% 15 ML PO ×2 (12:38→16:54)
--- NOTE | 2023-01-15 15:40 | P.PN_ITS ---
Subjective Subjective Interval history: Patient successfully extubated. Psych consulted to see her about her suicide attempt. She expresses frustration with still being alive, saying I stockpiled those meds for months and I sure botched it! Exam Vital Signs (past 8 hours): - 01/15/23 07:45 01/15/23 07:45 01/15/23 08:00 Temperature Pulse Rate 46 L Respiratory Rate 16 Blood Pressure 118/70 Pulse Oximetry 95 Oxygen Delivery Method Mechanical Ventilation Oxygen Flow Rate 01/15/23 08:00 01/15/23 08:00 01/15/23 08:30 Temperature 96.8 F L Pulse Rate 57 L 63 Respiratory Rate 16 16 Blood Pressure 107/68 Pulse Oximetry 93 92 Oxygen Delivery Method Oxygen Flow Rate 01/15/23 09:00 01/15/23 09:00 01/15/23 09:30 Temperature Pulse Rate 64 68 Respiratory Rate 16 17 Blood Pressure 92/57 L Pulse Oximetry 92 96 Oxygen Delivery Method Oxygen Flow Rate 01/15/23 10:00 01/15/23 10:30 01/15/23 10:30 Temperature Pulse Rate 98 H 65 Respiratory Rate 25 H 19 20 Blood Pressure Pulse Oximetry 91 91 92 Oxygen Delivery Method Nasal Cannula Oxygen Flow Rate 01/15/23 11:00 01/15/23 11:30 01/15/23 11:30 Temperature Pulse Rate 72 75 Respiratory Rate 15 Blood Pressure Pulse Oximetry 89 L 92 93 Oxygen Delivery Method Nasal Cannula Oxygen Flow Rate 2 01/15/23 12:00 01/15/23 12:00 01/15/23 12:13 Temperature Pulse Rate 75 76 Respiratory Rate 18 21 Blood Pressure Pulse Oximetry 92 93 Oxygen Delivery Method Nasal Cannula Oxygen Flow Rate 01/15/23 12:14 01/15/23 12:14 01/15/23 12:30 Temperature Pulse Rate 77 78 Respiratory Rate 23 23 Blood Pressure 113/67 Pulse Oximetry 92 91 Oxygen Delivery Method Oxygen Flow Rate 01/15/23 13:00 01/15/23 13:30 01/15/23 14:00 Temperature Pulse Rate 72 69 63 Respiratory Rate 23 20 20 Blood Pressure Pulse Oximetry 93 93 94 Oxygen Delivery Method Oxygen Flow Rate 01/15/23 14:01 01/15/23 14:01 01/15/23 15:32 Temperature Pulse Rate 65 Respiratory Rate 19 Blood Pressure 121/72 Pulse Oximetry 95 94 Oxygen Delivery Method Nasal Cannula Oxygen Flow Rate 3 Fraction of Inspired Oxygen 40 Oxygen Delivery Method Nasal Cannula Oxygen Flow Rate 3 Narrative Exam Narrative: GEN: Alert and oriented, NAD, raspy voice HEENT: NC, Face symmetric CHEST: Respiratory excursions symmetric, coarse with wheezes to the right base CV: Bradycardic with regular rhythm, no M/R/G ABD: Soft, obese, mildly tender,, BT present in all 4 quadrants, body habitus limits exam EXTR: warm, well perfused, no C/C/E SKIN: warm and dry, no rash NEURO: Nonfocal Objective Labs 01/15/23 05:00 01/15/23 05:00 Labs: Laboratory Results - last 24 hr 01/15/23 01/15/23 05:00 10:20 WBC 7.6 RBC 4.02 Hgb 12.0 Hct 36.9 MCV 91.8 MCH 30.0 MCHC 32.6 RDW 15.3 H Plt Count 215 Neut % (Auto) 66.3 Lymph % (Auto) 24.5 L [place] % (Auto) 5.9 Eos % (Auto) 2.4 Baso % (Auto) 0.9 Neut # (Auto) 5000 Lymph # (Auto) 1900 [place] # (Auto) 400 Eos # (Auto) 200 Baso # (Auto) 100 ABG Sample Site Right radial ABG pH 7.34 L ABG pCO2 32.6 L ABG pO2 54 L ABG HCO3 18 L ABG Total CO2 19 L ABG O2 Saturation 86 L ABG Base Excess -8.0 L FiO2 26 Sodium 136 L Potassium 3.8 Chloride 111 H Carbon Dioxide 20 L BUN 2 L Creatinine 0.51 L Estimated GFR > 60 BUN/Creatinine Ratio 3.9 L Glucose 135 H Calcium 8.7 Magnesium 1.5 L Total Bilirubin 1.1 AST 14 ALT 14 Alkaline Phosphatase 60 Total Protein 5.7 L Albumin 2.7 L Globulin 3.0 Albumin/Globulin Ratio 0.9 L [facility] Medical History Morbid obesity with body mass index (BMI) of 50.0 to 59.9 in adult (~09/26/17) ADD (attention deficit disorder) without hyperactivity Osteoarthritis Migraine Irritable bowel syndrome (IBS) Fibromyalgia Asthma Atherosclerosis of abdominal aorta Type 2 diabetes mellitus Depression Anxiety Primary insomnia Snoring Nocturnal hypoxemia Obstructive sleep apnea of adult Social History household members: friend(s) Assessment & Plan Assessment & Plan narrative: 1. Acute hypoxic respiratory failure, with L neck soft tissue swelling Initially intubated to protect airway. Successfully extubated on 01/15 to 3L NC. 2. Polysubstance overdose as suicide attempt Pt reportedly took hydrocodone/APAP, oxycodone/APAP, diazepam, temazepam, nyquil, ambien, and Jeff's Hard lemonade. She received activated charcoal as well as n-acetylcysteine infusion. Poison control recommended the addition of benzodiazepine. I have added a as needed dose of Valium, due to the national shortage of lorazepam. QTC is reassuring. Psych consulted and may need transfer for inpatient psych. 3. DM2 Not presently on any medications. She has been having low blood sugars. Fluids switched back to D5-NS, but she continued to have low blood sugars. If patient remains intubated tomorrow, will likely need to initiate enteral feeds. 4. DARON I am uncertain if this is treated at baseline 5. VAP with MSSA CXR with LLL infiltrate and sputum growing MSSA. No leukocytosis or fevers however. Repeat sputum with scant MSSA. De-escalated vanc and zosyn to ancef 2g q8h. CODE Full Prophy On Lovenox Dispo Downgrade from ICU. Pending psych recs. Likely will need inpatient psych treatment. Quality VTE Deep Vein Thrombosis/Pulmonary Embolism Present on Admission: No
--- NOTE | 2023-01-15 16:11 | PC.NURSE ---
Day Shift Note Pt intubated and sedated to RASS of -2 on morning assessment. SAT done at 0900 and pt able to follow commands, communicating via writing, SBT started at 0913 by RT. ABG completed and reviewed with Dr. Ohara who then gave the order to extubate. Pt extubated to 3L NC at 1030, soft wrist restraints removed. Pt with strong productive cough, voice soft. Precedex gtt continues at 0.8 mcg/kg/hr for pt report of anxiety. Pt alert and oriented x3. Up to BSC for loose BM - 2 person assist. Carlson catheter in place draining clear yellow urine. Tolerating clear liquids but limited intake due to stomach upset (given Maalox/lidocaine and zofran per emar). Pt expressing frustration concerning failed suicide attempt. Dr. Manjarrez assessed at bedside. One to one in place for safety, high risk suicidal ideation. Call light within reach, using appropriately to make needs known. Sisters Tiffanie and Jada currently at bedside.
[2023-01-16] VITALS (52 sets, daily range): BP systolic 82–120; BP diastolic 53–71; PULSE 46–66; RESP 12–22; TEMP 36.1–36.9; O2SAT 94–100
[2023-01-16] MEDS: fentaNYL 100 MCG/2 ML INJ 44 MCG IV (03:37)
[2023-01-16] MEDS: SODIUM CHLORIDE 0.9% FLUSH 10 ML IV ×3 (03:38→22:11)
[2023-01-16] MEDS: dexmedeTOMIDine in 0.9 % NaCL 400 MCG/100 ML PLAST..BAG 25 MCG IV ×2 (04:07→07:55)
[2023-01-16 04:28] LABS: Add Manual Diff / Slide Review NO; Basophils Absolute Auto 0 /uL (0-100); Basophils Percent Auto 0.6 % (0-2); Eosinophils Absolute Auto 200 /uL (0-450); Eosinophils Percent Auto 2.7 % (2-4); Hematocrit 35.3 % (36-46); Hemoglobin 11.8 g/dL (12.0-16.0); Lymphocytes Absolute Auto 1800 /uL (1100-4500); Lymphocytes Percent Auto 28.5 % (25-40); Mean Corpuscular HGB Conc 33.5 % (30-36); Mean Corpuscular Volume 92.6 fL (80-100); Monocytes Absolute Auto 400 /uL (0-900); Monocytes Percent Auto 5.9 % (3-14); Neutrophils Absolute Auto 3900 /uL (1500-7000); Neutrophils Percent Auto 62.3 % (50-75); Platelet Count 210 X10^3/uL (150-400); Red Blood Cell Count 3.81 X10^6/uL (4.0-5.2); Red Cell Distribution Width 15.1 % (11.6-14.8); White Blood Cell Count 6.3 X10^3/uL (4.5-11.0)
[2023-01-16 04:36] LABS: Alanine Aminotransferase 16 IU/L (<35); Albumin 2.8 g/dL (3.5-5.0); Albumin Globulin Ratio 0.9 (1.0-2.8); Alkaline Phosphatase 64 U/L (38-126); Aspartate Aminotransferase 21 IU/L (14-36); BUN Creatinine Ratio 5.8 (6-22); Blood Urea Nitrogen 3 mg/dL (7-17); Calcium 8.6 mg/dL (8.4-10.2); Carbon Dioxide 24 mmol/L (22-32); Chloride 108 mmol/L (98-107); Estimated Glomerular Filt Rate > 60 mL/min (>60); Glucose 137 mg/dL (70-100); HEMOLYSIS < 15 (0-50); Sodium 136 mmol/L (137-145); Total Protein 5.8 g/dL (6.3-8.2)
[2023-01-16 04:37] LABS: Magnesium 1.9 mg/dL (1.6-2.3)
[2023-01-16] MEDS: ALBUTEROL 2.5 MG/3 ML NEB (ADULT) INH ×4 (04:47→20:19)
[2023-01-16] MEDS: PANTOPRAZOLE DR 40 MG TABLET PO (06:07)
[2023-01-16] MEDS: LEVOTHYROXINE 100 MCG TABLET 200 MCG PO (06:07)
--- NOTE | 2023-01-16 06:38 | PC.NURSE ---
Senior Radiation Protection Technician Notes-Patient dozed intermittently throughout the night. Relaxed, cooperative, and interacting with 1:1 PCT sitter. No mention of suicide ideation, said I wouldn't do it again Precedex continues at 0.8mcg/kg/hr. Taking clear liquids slowly d/t sore throat, IV Fentanyl given once for c/o 9/10 pain. SpO2 > 96% on 3L NC, occasional mild shortness of breath, nebs effective.
[2023-01-16] MEDS: ENOXAPARIN 40 MG/0.4 ML SYRINGE SUBCUT ×2 (07:53→21:08)
[2023-01-16] MEDS: lamoTRIgine 100 MG TABLET 450 MG PO ×2 (07:54→21:06)
[2023-01-16] MEDS: TOPIRAMATE 100 MG TABLET 200 MG PO ×2 (07:54→21:07)
[2023-01-16] MEDS: dexmedeTOMIDine in 0.9 % NaCL 400 MCG/100 ML PLAST..BAG 21.875 MCG IV (12:34)
[2023-01-16] MEDS: ACETAMINOPHEN 325 MG TABLET 650 MG PO (16:00)
--- NOTE | 2023-01-16 16:11 | CM.DPNOTE ---
Addendum entered by DEREK Bernal 01/16/23 17:10: Ottoniel from [facility] returned this author's call. Requested clinicals to be faxed (f [phone]) ATTENDANCE SECRETARY answered questions to best of ability. Ottoniel asked if pt was voluntary or not. ATTENDANCE SECRETARY entered room and inquired about pt'd voluntary versus involuntary thoughts. Pt strongly prefers OP treatment with Dr. Manjarrez. Pt reports if she were to dc to [facility] or [facility] she would be voluntary but involuntary anywhere else. ATTENDANCE SECRETARY passed this along to DCR Ottoniel. Ottoniel requested to be transferred to provider. Plan: ATTENDANCE SECRETARY will fax clinicals to Ottoniel SL Original Note: DCP note ATTENDANCE SECRETARY reviewed EMR. Per provider, medically stable to dc today. Per psychiatry consult, rec inpt psych placement at this time due to suicidal ideation. Per RN, police were here earlier to serve pt Extreme Risk Protection Order. ATTENDANCE SECRETARY entered room and introduced self and role. Pt resting in bed, WNL with behavior and speech pattern throughout interaction. Pt reported understanding of calling DCR. Pt requested either [facility] or [facility] for placement. Pt expressed desire to go home prior to going to facility but reported understanding if that could not be arranged. Pt agreed to let CM team update sister Tiffanie (p [phone]) but wanted sister Jada to be POA (p [phone]). ATTENDANCE SECRETARY provided POA paperwork to patient. ATTENDANCE SECRETARY spoke with intake at [facility]. ATTENDANCE SECRETARY answered questions to best of ability/provided clinical background. Intake requested COVID test for pt. Reported they will assigned someone to the case. ATTENDANCE SECRETARY placed order for COVID test. ATTENDANCE SECRETARY printed out clinical packed of facesheet/H&P/tox report/recent PN/SW notes/consultation note available. Left with RN at desk for DCR. ATTENDANCE SECRETARY lvm with sister Tiffanie to attempt to give updates, no response. Plan: CM team will continue to coordinate closely with DCR. Pt likely will dc to inpt psych facility. CM team will continue to follow closely. DEREK Bernal
[2023-01-16] MEDS: TRAMADOL 50 MG TABLET PO ×2 (17:01→21:07)
[2023-01-16] MEDS: dexmedeTOMIDine in 0.9 % NaCL 400 MCG/100 ML PLAST..BAG 18.75 MCG IV ×2 (17:33→22:59)
[2023-01-16] MEDS: HYDROMORPHONE 0.5 MG INJ IV ×2 (18:08→22:10)
[2023-01-16 18:42] LABS: COVID19 -Nasal RAPID Negative (Negative)
--- NOTE | 2023-01-16 18:50 | PC.NURSE ---
Day Shift Note Pt with continuous one to one observation this shift for high suicide risk. Calm and cooperative, precedex gtt weaned down to 0.6 mcg/kg/hr, remains on due to pt anxiety, MD is aware. Awaiting DCR (Ottoniel), Ottoniel called and requested Dr. Manjarrez's note be re-faxed before coming out to eval pt. This was done - sent to fax [phone]. Call light within reach, using appropriately to make needs known.
--- NOTE | 2023-01-16 18:51 | PM.PN.1 ---
Subjective Subjective Interval history: Patient wanting to get out of bed and have shower today. Psych rec inpatient psych treatment. DCR to evaluate. Exam Vital Signs (past 8 hours): - 01/16/23 11:00 01/16/23 11:30 01/16/23 12:00 Temperature Pulse Rate 46 L 55 L 48 L Respiratory Rate 12 15 16 Blood Pressure Pulse Oximetry 97 98 97 Oxygen Delivery Method Oxygen Flow Rate 01/16/23 12:01 01/16/23 12:01 01/16/23 12:30 Temperature 97.8 F Pulse Rate 48 L 48 L Respiratory Rate 17 15 Blood Pressure 103/62 Pulse Oximetry 96 95 Oxygen Delivery Method Oxygen Flow Rate 0 01/16/23 13:00 01/16/23 13:00 01/16/23 13:30 Temperature Pulse Rate 50 L 57 L Respiratory Rate 20 14 Blood Pressure Pulse Oximetry 95 94 Oxygen Delivery Method Room Air Oxygen Flow Rate 01/16/23 14:00 01/16/23 14:01 01/16/23 14:01 Temperature Pulse Rate 48 L 48 L Respiratory Rate 16 16 Blood Pressure 103/64 Pulse Oximetry 96 95 Oxygen Delivery Method Oxygen Flow Rate 01/16/23 14:30 01/16/23 15:53 01/16/23 16:00 Temperature Pulse Rate 53 L 57 L 56 L Respiratory Rate 22 15 Blood Pressure Pulse Oximetry Oxygen Delivery Method Oxygen Flow Rate 01/16/23 16:14 01/16/23 16:30 01/16/23 17:00 Temperature Pulse Rate 54 L 60 54 L Respiratory Rate 16 21 12 Blood Pressure Pulse Oximetry 97 Oxygen Delivery Method Room Air Oxygen Flow Rate 01/16/23 17:07 01/16/23 17:30 01/16/23 17:56 Temperature Pulse Rate 57 L Respiratory Rate 20 Blood Pressure 116/68 Pulse Oximetry Oxygen Delivery Method Room Air Oxygen Flow Rate 01/16/23 17:56 01/16/23 18:00 01/16/23 18:01 Temperature Pulse Rate 54 L 62 66 Respiratory Rate 20 22 17 Blood Pressure Pulse Oximetry Oxygen Delivery Method Oxygen Flow Rate 01/16/23 18:01 01/16/23 18:30 Temperature 97.8 F Pulse Rate 51 L Respiratory Rate 13 Blood Pressure 120/71 Pulse Oximetry Oxygen Delivery Method Oxygen Flow Rate Fraction of Inspired Oxygen 40 Oxygen Delivery Method Room Air Oxygen Flow Rate 0 Narrative Exam Narrative: GEN: Alert and oriented, NAD, raspy voice HEENT: NC, Face symmetric CHEST: Respiratory excursions symmetric, coarse with wheezes to the right base CV: Bradycardic with regular rhythm, no M/R/G ABD: Soft, obese, nontender,, BT present in all 4 quadrants, body habitus limits exam EXTR: warm, well perfused, no C/C/E SKIN: warm and dry, no rash NEURO: Nonfocal Objective Labs 01/16/23 04:15 01/16/23 04:15 Labs: Laboratory Results - last 24 hr 01/16/23 01/16/23 04:15 18:16 WBC 6.3 RBC 3.81 L Hgb 11.8 L Hct 35.3 L MCV 92.6 MCH 31.0 MCHC 33.5 RDW 15.1 H Plt Count 210 Neut % (Auto) 62.3 Lymph % (Auto) 28.5 [place] % (Auto) 5.9 Eos % (Auto) 2.7 Baso % (Auto) 0.6 Neut # (Auto) 3900 Lymph # (Auto) 1800 [place] # (Auto) 400 Eos # (Auto) 200 Baso # (Auto) 0 Sodium 136 L Potassium 4.0 Chloride 108 H Carbon Dioxide 24 BUN 3 L Creatinine 0.52 Estimated GFR > 60 BUN/Creatinine Ratio 5.8 L Glucose 137 H Calcium 8.6 Magnesium 1.9 Total Bilirubin 1.0 AST 21 ALT 16 Alkaline Phosphatase 64 Total Protein 5.8 L Albumin 2.8 L Globulin 3.0 Albumin/Globulin Ratio 0.9 L SARS-CoV-2 (PCR) Negative [facility] Medical History Morbid obesity with body mass index (BMI) of 50.0 to 59.9 in adult (~09/26/17) ADD (attention deficit disorder) without hyperactivity Osteoarthritis Migraine Irritable bowel syndrome (IBS) Fibromyalgia Asthma Atherosclerosis of abdominal aorta Type 2 diabetes mellitus Depression Anxiety Primary insomnia Snoring Nocturnal hypoxemia Obstructive sleep apnea of adult Social History household members: friend(s) Assessment & Plan Assessment & Plan narrative: 1. Acute hypoxic respiratory failure, with L neck soft tissue swelling Initially intubated to protect airway. Successfully extubated on 01/15. Now on room air. Left neck swelling seen on CT likely due to multiple prior CVC attempts. Tramadol and dilaudid PRN for pain. 2. Polysubstance overdose as suicide attempt Pt reportedly took hydrocodone/APAP, oxycodone/APAP, diazepam, temazepam, nyquil, ambien, and Jeff's Hard lemonade. She received activated charcoal as well as n-acetylcysteine infusion. Poison control recommended the addition of benzodiazepine. I have added a as needed dose of Valium, due to the national shortage of lorazepam. QTC is reassuring. Psych consulted and rec inpatient psych treatment. 3. DM2 Not presently on any medications. 4. DARON I am uncertain if this is treated at baseline 5. VAP with MSSA CXR with LLL infiltrate and sputum growing MSSA. No leukocytosis or fevers however. Repeat sputum with scant MSSA. De-escalated vanc and zosyn to ancef 2g q8h. CODE Full Prophy On Lovenox Dispo Pending DCR and inpatient psych placement. Quality VTE Deep Vein Thrombosis/Pulmonary Embolism Present on Admission: No
--- NOTE | 2023-01-16 19:28 | PC.NURSE ---
Addendum entered by Crystal Murillo CNA 01/17/23 06:56: Patient called Joy from phone in room, patient became very upset when speaking on the phone. Once off the patient became tearful and upset, stating Why cant she just help me? she is being so rude to me, I know she is upset with me. Patient expressed being nervous about treatment and leaving the hospital and going to treatment, patient stating I wasn't suppose to live, that was the plan, so now I have to figure out what I am going to do. This [employer] TRUCK DRIVER encouraged patient to take deep breaths and to maybe trying to speak to her later in the day or talking to one her sisters about getting her stuff. Patient agreed. Reported to RN Original Note: This O[employer] TR[employer] DRIVER took over patient safety monitoring at 1900. VIK Alcazar in room talking with patient.
[2023-01-16] MEDS: TRAZODONE 50 MG TABLET 150 MG PO (21:07)
[2023-01-17] VITALS (31 sets, daily range): BP systolic 87–168; BP diastolic 50–74; PULSE 46–77; RESP 12–19; TEMP 35.9–36.6; O2SAT 85–97
[2023-01-17] MEDS: HYDROMORPHONE 0.5 MG INJ IV ×3 (02:17→10:22)
[2023-01-17] MEDS: dexmedeTOMIDine in 0.9 % NaCL 400 MCG/100 ML PLAST..BAG 18.75 MCG IV ×2 (03:20→08:33)
[2023-01-17 05:26] LABS: Add Manual Diff / Slide Review NO; Basophils Absolute Auto 0 /uL (0-100); Basophils Percent Auto 0.7 % (0-2); Eosinophils Absolute Auto 200 /uL (0-450); Hematocrit 32.9 % (36-46); Hemoglobin 10.9 g/dL (12.0-16.0); Lymphocytes Absolute Auto 1900 /uL (1100-4500); Lymphocytes Percent Auto 32.5 % (25-40); Mean Corpuscular HGB Conc 33.2 % (30-36); Mean Corpuscular Hemoglobin 31.3 PG (26-34); Mean Corpuscular Volume 94.4 fL (80-100); Monocytes Absolute Auto 400 /uL (0-900); Monocytes Percent Auto 7.1 % (3-14); Neutrophils Absolute Auto 3300 /uL (1500-7000); Neutrophils Percent Auto 56.7 % (50-75); Platelet Count 201 X10^3/uL (150-400); Red Blood Cell Count 3.49 X10^6/uL (4.0-5.2); Red Cell Distribution Width 15.1 % (11.6-14.8); White Blood Cell Count 5.8 X10^3/uL (4.5-11.0)
[2023-01-17 05:32] LABS: Alanine Aminotransferase 14 IU/L (<35); Albumin 2.8 g/dL (3.5-5.0); Albumin Globulin Ratio 0.9 (1.0-2.8); Alkaline Phosphatase 57 U/L (38-126); Aspartate Aminotransferase 16 IU/L (14-36); BUN Creatinine Ratio 4.8 (6-22); Bilirubin Total 0.6 mg/dL (0.2-1.3); Blood Urea Nitrogen 3 mg/dL (7-17); Calcium 8.9 mg/dL (8.4-10.2); Carbon Dioxide 28 mmol/L (22-32); Chloride 106 mmol/L (98-107); Estimated Glomerular Filt Rate > 60 mL/min (>60); Glucose 140 mg/dL (70-100); HEMOLYSIS < 15 (0-50); Sodium 136 mmol/L (137-145); Total Protein 5.8 g/dL (6.3-8.2)
[2023-01-17 05:33] LABS: Magnesium 1.8 mg/dL (1.6-2.3)
[2023-01-17] MEDS: LEVOTHYROXINE 100 MCG TABLET 200 MCG PO (06:23)
[2023-01-17] MEDS: PANTOPRAZOLE DR 40 MG TABLET PO (06:23)
--- NOTE | 2023-01-17 06:32 | PC.NURSE ---
night shift RN note Pt awake in bed, teary at times, states she is anxious and doesn't want to leave the hospital yet, DCR in to see pt at HS, c/o pain throat/neck, states PO meds do not help with pain, requested IV pain meds overnight, precedex gtt continues, SB/SR 50-60s, VSS, afebrile, PPPx4, mild gen edema, lungs clear, O2 sats >92% on RA when awake, desats to 88% when asleep, 2L NC applied and sats improved to 92%, abd soft with BS, voiding in bathroom with SBY assist, skin warm and dry, scattered bruises, bilat dsgs to neck intact from failed central line attempts, PICC ISIDRO patent, meds and labs as ordered, 1:1 sitter at bedside per precautions, continue to monitor
[2023-01-17] MEDS: ALBUTEROL 2.5 MG/3 ML NEB (ADULT) INH ×3 (08:28→19:30)
[2023-01-17] MEDS: TRAMADOL 50 MG TABLET PO ×3 (08:34→20:04)
[2023-01-17] MEDS: ENOXAPARIN 40 MG/0.4 ML SYRINGE SUBCUT ×2 (08:34→20:03)
[2023-01-17] MEDS: TOPIRAMATE 100 MG TABLET 200 MG PO ×2 (08:34→20:03)
[2023-01-17] MEDS: SODIUM CHLORIDE 0.9% 1,000 ML 1000 ML IV (08:34)
[2023-01-17] MEDS: lamoTRIgine 100 MG TABLET 450 MG PO ×2 (08:35→20:04)
[2023-01-17] MEDS: SODIUM CHLORIDE 0.9% FLUSH 10 ML IV ×2 (08:35→20:06)
--- NOTE | 2023-01-17 11:31 | DI.RAD.S_ITS ---
PROCEDURE: XR CHEST 1V INDICATIONS: assess PNA TECHNIQUE: One view of the chest was acquired. COMPARISON: [facility], CR, XR CHEST 1V, 01/13/2023, 8:08. [facility], CR, XR CHEST FOR PICC 1V, 01/12/2023, 10:23. FINDINGS: Surgical changes and devices: None. Lungs and pleura: New mild right lower lung opacity. Low lung volumes. No drainable pleural effusion. Mediastinum: Heart size is at the upper limit of normal. Bones and chest wall: Unremarkable IMPRESSION: Mild new right lower lung opacity may represent aspiration, atelectasis, or early infection. Consider future imaging surveillance to assess for resolution. This is a limited single view radiograph with low lung volumes. Dictated by: Frandy Laurent M.D. on 01/17/2023 at 12:44 Approved by: Frandy Laurent M.D. on 01/17/2023 at 12:45
[2023-01-17] MEDS: LORazepam 1 MG TABLET PO ×2 (11:52→15:45)
[2023-01-17] MEDS: LIDOCAINE VISCOUS 2% 15 ML SOLUTION PO ×2 (11:52→21:22)
[2023-01-17] MEDS: AMOXICILLIN 250 MG CAPSULE 1000 MG PO ×2 (14:31→20:05)
[2023-01-17] MEDS: ACETAMINOPHEN 325 MG TABLET 650 MG PO (14:31)
--- NOTE | 2023-01-17 15:39 | CM.SWNOTE ---
CHECK WRITER Note VIK Alcazar evaluated last night, patient found to be a voluntary candidate. DCR ppk left in patient's red chart indicates Ottoniel placed calls to voluntary beds and none were found- either beds were full or patient was denied based on facilities saying patient was not medically stable yet. Patient discussed in morning rounds- encouraged provider to consider transitioning patient off IV to po today and to make sure patient walking and completing ADLs independently in room. Once patient is off IV and indp, CHECK WRITER team can meet with patient at bedside to discuss plan. If patient continues to be voluntary, calls to inpatient psych, for voluntary beds, can begin. RN updated. Met w/patient this afternoon to update with information summarized above. Patient continues to be voluntary at this time. Furthermore, patient interested in dual diagnosis for CHRISTINE, will attempt. Patient has hx at [facility] and had a very good experience, 28 day treatment stay. Patient would like to return after MH psychiatric stay and plans to make a call to self refer. Encouraged ARLET Blank to allow patient's sister Tiffanie to deliver her cell phone to bedside, patient would like to make calls for herself to treatment facility. Cell phone policy, MH/Suicide Attempt, reviewed with CM Machine Repairman Alison, no charging cords, cell phone okay. Plan: SW team following closely, plan to reevaluate needs at bedside tomorrow, will begin voluntary bed search if patient remains voluntary and is medically stable and off IV. DEREK Silver
[2023-01-17] MEDS: SUMAtriptan 25 MG TABLET 50 MG PO ×2 (15:45→22:13)
--- NOTE | 2023-01-17 17:52 | PC.NURSE ---
Day Shift Note Pt is alert and oriented x3. Calm and cooperative, one to one continuous observation in place. SpO2 92-95% on RA. Precedex weaned to off today and pt receiving prn Ativan PO for anxiety. Pt with migraine this afternoon, medicated with imitrex which was effective per pt. Pt requesting cell phone, sister Tiffanie has in her possession. Relayed to Tiffanie that pt could have cell phone as pt is hoping to make calls and assist in finding rehab options (as discussed with Anita REED - see her note), Tiffanie acknowledged understanding and stated she would bring tonight. Pt call light within reach, using appropriately to make needs known.
--- NOTE | 2023-01-17 19:32 | P.PN_ITS ---
Subjective Subjective Interval history: Patient tearful and anxious today. The reality of everything is setting in she says. Asking for something to help her sleep as she only got 2 hours last night. Exam Vital Signs (past 8 hours): - 01/17/23 12:00 01/17/23 12:01 01/17/23 12:01 Temperature Pulse Rate 55 L 56 L Respiratory Rate 16 15 Blood Pressure 88/50 L Pulse Oximetry 91 92 Oxygen Delivery Method 01/17/23 12:18 01/17/23 12:56 01/17/23 12:56 Temperature 97.4 F L Pulse Rate 58 L Respiratory Rate 19 Blood Pressure 101/57 L Pulse Oximetry 95 Oxygen Delivery Method 01/17/23 14:00 01/17/23 14:01 01/17/23 14:01 Temperature Pulse Rate 63 60 Respiratory Rate 17 14 Blood Pressure 93/56 L Pulse Oximetry 93 93 Oxygen Delivery Method 01/17/23 15:01 01/17/23 15:04 01/17/23 17:24 Temperature Pulse Rate 73 74 Respiratory Rate 16 Blood Pressure 114/62 Pulse Oximetry 94 97 Oxygen Delivery Method Room Air 01/17/23 17:39 01/17/23 17:41 Temperature 98 F Pulse Rate 77 Respiratory Rate Blood Pressure Pulse Oximetry 93 Oxygen Delivery Method Fraction of Inspired Oxygen 40 Oxygen Delivery Method Room Air Oxygen Flow Rate 1 Narrative Exam Narrative: GEN: Alert and oriented, anxious, raspy voice HEENT: NC, Face symmetric CHEST: Respiratory excursions symmetric, coarse with wheezes to the right base CV: Bradycardic with regular rhythm, no M/R/G ABD: Soft, obese, nontender,, BT present in all 4 quadrants, body habitus limits exam EXTR: warm, well perfused, no C/C/E SKIN: warm and dry, no rash NEURO: Nonfocal Objective Labs 01/17/23 05:15 01/17/23 05:15 Labs: Laboratory Results - last 24 hr 01/17/23 05:15 WBC 5.8 RBC 3.49 L Hgb 10.9 L Hct 32.9 L MCV 94.4 MCH 31.3 MCHC 33.2 RDW 15.1 H Plt Count 201 Neut % (Auto) 56.7 Lymph % (Auto) 32.5 [place] % (Auto) 7.1 Eos % (Auto) 3.0 Baso % (Auto) 0.7 Neut # (Auto) 3300 Lymph # (Auto) 1900 [place] # (Auto) 400 Eos # (Auto) 200 Baso # (Auto) 0 Sodium 136 L Potassium 4.0 Chloride 106 Carbon Dioxide 28 BUN 3 L Creatinine 0.63 Estimated GFR > 60 BUN/Creatinine Ratio 4.8 L Glucose 140 H Calcium 8.9 Magnesium 1.8 Total Bilirubin 0.6 AST 16 ALT 14 Alkaline Phosphatase 57 Total Protein 5.8 L Albumin 2.8 L Globulin 3.0 Albumin/Globulin Ratio 0.9 L PFSH Medical History Morbid obesity with body mass index (BMI) of 50.0 to 59.9 in adult (~09/26/17) ADD (attention deficit disorder) without hyperactivity Osteoarthritis Migraine Irritable bowel syndrome (IBS) Fibromyalgia Asthma Atherosclerosis of abdominal aorta Type 2 diabetes mellitus Depression Anxiety Primary insomnia Snoring Nocturnal hypoxemia Obstructive sleep apnea of adult Social History household members: friend(s) Assessment & Plan Assessment & Plan narrative: 1. Acute hypoxic respiratory failure, with L neck soft tissue swelling Initially intubated to protect airway. Successfully extubated on 01/15. Now on room air. Left neck swelling seen on CT likely due to multiple prior CVC attempts. Tramadol and dilaudid PRN for pain. 2. Polysubstance overdose as suicide attempt Pt reportedly took hydrocodone/APAP, oxycodone/APAP, diazepam, temazepam, nyquil, ambien, and Jeff's Hard lemonade. She received activated charcoal as well as n-acetylcysteine infusion. Poison control recommended the addition of benzodiazepine. I have added a as needed dose of Valium, due to the national shortage of lorazepam. QTC is reassuring. Psych consulted and rec inpatient psych treatment. 3. DM2 Not presently on any medications. 4. DARON I am uncertain if this is treated at baseline 5. VAP with MSSA CXR with LLL infiltrate and sputum growing MSSA. No leukocytosis or fevers however. Repeat sputum with scant MSSA. De-escalated vanc and zosyn to ancef 2g q8h. 6. Severe anxiety and insomnia Ativan 2mg q4h PRN and haldol 2mg q8h PRN for anxiety. Benadryl and trazodone for sleep. CODE Full Prophy On Lovenox Dispo Pending DCR and inpatient psych placement. Quality VTE Deep Vein Thrombosis/Pulmonary Embolism Present on Admission: No
[2023-01-17] MEDS: TRAZODONE 50 MG TABLET 150 MG PO (20:04)
[2023-01-17] MEDS: LORazepam 1 MG TABLET 2 MG PO (20:05)
--- NOTE | 2023-01-17 20:25 | PC.NURSE ---
Addendum entered by Crystal Murillo CNA 01/17/23 21:01: Patient with this ZANJERO walked around the unit Addendum entered by Crystal Murillo CNA 01/17/23 20:47: Patient was upset and tearful after her sister left. Patient stated that the sister doesn't think she will be able to recover. Patient was happy about being able to have her cell phone, watch and other important items returned to her. Reported to RN Original Note: This ZANJERO took over 1:1 q15 safety checks at 1900 Patients sister came and dropped off patients belongings
[2023-01-18] VITALS (19 sets, daily range): BP systolic 140–158; BP diastolic 65–89; PULSE 82–104; RESP 16–20; TEMP 36.6–37.4; O2SAT 91–97
[2023-01-18] MEDS: SUMAtriptan 25 MG TABLET 50 MG PO ×2 (00:22→13:30)
[2023-01-18] MEDS: LORazepam 1 MG TABLET 2 MG PO ×2 (02:36→20:52)
[2023-01-18] MEDS: diphenhydrAMINE 50 MG/ML VIAL IV (02:36)
[2023-01-18] MEDS: HYDROMORPHONE 0.5 MG INJ IV (05:28)
[2023-01-18] MEDS: LEVOTHYROXINE 100 MCG TABLET 200 MCG PO (05:28)
[2023-01-18 05:47] LABS: Add Manual Diff / Slide Review NO; Basophils Absolute Auto 0 /uL (0-100); Basophils Percent Auto 0.7 % (0-2); Eosinophils Absolute Auto 100 /uL (0-450); Eosinophils Percent Auto 1.7 % (2-4); Hematocrit 40.2 % (36-46); Hemoglobin 13.2 g/dL (12.0-16.0); Lymphocytes Absolute Auto 1800 /uL (1100-4500); Lymphocytes Percent Auto 24.2 % (25-40); Mean Corpuscular HGB Conc 32.9 % (30-36); Mean Corpuscular Hemoglobin 30.3 PG (26-34); Mean Corpuscular Volume 92.2 fL (80-100); Monocytes Absolute Auto 400 /uL (0-900); Monocytes Percent Auto 5.7 % (3-14); Neutrophils Absolute Auto 5000 /uL (1500-7000); Neutrophils Percent Auto 67.7 % (50-75); Platelet Count 325 X10^3/uL (150-400); Red Blood Cell Count 4.36 X10^6/uL (4.0-5.2); Red Cell Distribution Width 14.9 % (11.6-14.8); White Blood Cell Count 7.4 X10^3/uL (4.5-11.0)
[2023-01-18 05:57] LABS: Blood Urea Nitrogen 3 mg/dL (7-17); Calcium 9.7 mg/dL (8.4-10.2); Carbon Dioxide 25 mmol/L (22-32); Chloride 108 mmol/L (98-107); Estimated Glomerular Filt Rate > 60 mL/min (>60); Glucose 89 mg/dL (70-100); HEMOLYSIS 30 (0-50); Potassium 4.1 mmol/L (3.4-5.1); Sodium 140 mmol/L (137-145)
[2023-01-18 05:58] LABS: Magnesium 1.9 mg/dL (1.6-2.3)
[2023-01-18] MEDS: ALBUTEROL 2.5 MG/3 ML NEB (ADULT) INH ×2 (08:27→11:15)
[2023-01-18] MEDS: LIDOCAINE VISCOUS 2% 15 ML SOLUTION PO (08:49)
[2023-01-18] MEDS: AMOXICILLIN 250 MG CAPSULE 1000 MG PO ×3 (08:51→20:52)
[2023-01-18] MEDS: TOPIRAMATE 100 MG TABLET 200 MG PO ×2 (08:51→20:52)
[2023-01-18] MEDS: lamoTRIgine 100 MG TABLET 450 MG PO ×2 (08:51→20:52)
[2023-01-18] MEDS: TRAMADOL 50 MG TABLET PO (08:58)
[2023-01-18] MEDS: SODIUM CHLORIDE 0.9% FLUSH 10 ML IV ×2 (08:59→20:53)
[2023-01-18] MEDS: ENOXAPARIN 40 MG/0.4 ML SYRINGE SUBCUT ×2 (08:59→20:51)
--- NOTE | 2023-01-18 10:51 | CM.DPNOTE ---
Addendum entered by DEREK Lubin 01/18/23 15:21: ADD: [facility] declines. After full review of patient's clinical data, patient declined. [facility] staff state patient is too medically complex for [facility]- to include but not limited to patient's sleep apnea, morbid obesity, prolonged QTC This SW team will need to continue calls to inpatient psychiatric units tomorrow. Will plan to start with Psychiatric Units within acute care hospitals. JW Addendum entered by DEREK Lubin 01/18/23 13:36: ADD: Placed call to [facility] this morning, no beds. Working with [facility] throughout the day re potential placement. [facility] has female Vol beds available and are optimistic they can accept patient. Faxed updated clinical to include updated note from Dr Monae, ekg, test results, COVID and other lab results. Awaiting determination from [facility] on acceptance then can arrange transport, facilitate nurse report etc JW Original Note: TECHNICAL LABORATORY ASST Note According to Dr Monae, patient is medically ready for discharge today and requests inpatient psychiatric stay for patient. Met w/patient to review plan, patient remains agreeable to inpatient psychiatric unit and requests updates from this TECHNICAL LABORATORY ASST when they are available. MAISHA
--- NOTE | 2023-01-18 11:36 | PM.PN.1 ---
Subjective Subjective Interval history: Patient calm today, mild anxiety about transition to psych facility. She complains of bilateral knee pain, throat pain, headache today. No nausea or vomiting. Does have some white vaginal discharge and itching. Exam Vital Signs (past 8 hours): - 01/18/23 04:00 01/18/23 07:50 01/18/23 08:28 Temperature 98.2 F Pulse Rate 103 H 92 H 91 H Respiratory Rate 19 18 16 Blood Pressure 158/69 H 158/85 H Pulse Oximetry 94 95 93 Oxygen Delivery Method Room Air Oxygen Flow Rate 0 0 Fraction of Inspired Oxygen 40 Oxygen Delivery Method Room Air Oxygen Flow Rate 0 Narrative Exam Narrative: GEN: Alert and oriented, calm and cooperative, mildly anxious, raspy voice HEENT: NC, Face symmetric CHEST: Respiratory excursions symmetric, coarse with wheezes to the right base CV: Bradycardic with regular rhythm, no M/R/G ABD: Soft, obese, nontender,, BT present in all 4 quadrants, body habitus limits exam EXTR: warm, well perfused, no C/C/E SKIN: warm and dry, no rash NEURO: Nonfocal Objective Labs 01/18/23 05:30 01/18/23 05:30 Labs: Laboratory Results - last 24 hr 01/18/23 05:30 WBC 7.4 RBC 4.36 Hgb 13.2 Hct 40.2 MCV 92.2 MCH 30.3 MCHC 32.9 RDW 14.9 H Plt Count 325 Neut % (Auto) 67.7 Lymph % (Auto) 24.2 L [place] % (Auto) 5.7 Eos % (Auto) 1.7 L Baso % (Auto) 0.7 Neut # (Auto) 5000 Lymph # (Auto) 1800 [place] # (Auto) 400 Eos # (Auto) 100 Baso # (Auto) 0 Sodium 140 Potassium 4.1 Chloride 108 H Carbon Dioxide 25 BUN 3 L Creatinine 0.60 Estimated GFR > 60 BUN/Creatinine Ratio 5.0 L Glucose 89 Calcium 9.7 Magnesium 1.9 PFSH Medical History Morbid obesity with body mass index (BMI) of 50.0 to 59.9 in adult (~09/26/17) ADD (attention deficit disorder) without hyperactivity Osteoarthritis Migraine Irritable bowel syndrome (IBS) Fibromyalgia Asthma Atherosclerosis of abdominal aorta Type 2 diabetes mellitus Depression Anxiety Primary insomnia Snoring Nocturnal hypoxemia Obstructive sleep apnea of adult Social History household members: friend(s) Assessment & Plan Assessment & Plan narrative: 1. Acute hypoxic respiratory failure, with L neck soft tissue swelling Initially intubated to protect airway. Successfully extubated on 01/15. Now on room air. Left neck swelling seen on CT likely due to multiple prior CVC attempts. Tramadol and opiate PRN for pain, now changed to all oral medications 2. Polysubstance overdose as suicide attempt Pt reportedly took hydrocodone/APAP, oxycodone/APAP, diazepam, temazepam, nyquil, ambien, and Jeff's Hard lemonade. She received activated charcoal as well as n-acetylcysteine infusion. Poison control recommended the addition of benzodiazepine. I have added a as needed dose of Valium, due to the national shortage of lorazepam. QTC is reassuring. Psych consulted and rec inpatient psych treatment. Appreciate psychiatry recommendations. 3. DM2 Not presently on any medications. 4. DARON I am uncertain if this is treated at baseline 5. VAP with MSSA CXR with LLL infiltrate and sputum growing MSSA. No leukocytosis or fevers however. Repeat sputum with scant MSSA. De-escalated vanc and zosyn to ancef 2g q8h and now on amoxicillin PO TID. Continue oral antibiotics for now with total 7 days of therapy, to end on 01/21 after 7 days of therapy. 6. Severe anxiety and insomnia Ativan 2mg q4h PRN and haldol 2mg q8h PRN for anxiety. Benadryl and trazodone for sleep. 7. Vaginal candidiasis - secondary to antibiotics for PNA, ordered 1 dose of fluconazole today. CODE Full Prophy On Lovenox Dispo Medically stable for inpatient psychiatry, pending bed availability. Quality VTE Deep Vein Thrombosis/Pulmonary Embolism Present on Admission: No
[2023-01-18] MEDS: ACETAMINOPHEN 325 MG TABLET 975 MG PO (11:52)
[2023-01-18] MEDS: OXYCODONE IR 5 MG TABLET PO ×3 (11:52→20:53)
[2023-01-18] MEDS: FLUCONAZOLE 100 MG TABLET 150 MG PO (11:52)
[2023-01-18 12:31] LABS: Pregnancy Test Urine Negative (Negative)
--- NOTE | 2023-01-18 16:02 | CM.DPC ---
EVELNY called [facility] and had to leave a msg regarding new referral and faxed to their facility for review. EVELYN called [facility] and they currently have 7 open beds and willing to review and EVELYN confirmed fax number of [phone] and sent packet for review and left msg for them to call [employer] station if questions this evening and the SW desk in [place] if in the morning. EVELYN updated [employer] [place]. Sharyn Ledezma
--- NOTE | 2023-01-18 17:05 | PC.NURSE ---
Day shift: Pt A&Ox4. Pt tolerated small amount of breakfast. Pt 1:1 with PCT sitter. C/o headache, PRN medications provided (See MAR). Pt continues to c/o headache, provider notified, orders received. PRN pain medication given (See MAR). Pt SBA to BR. Pt expresses, I'm pissed. I had my paperwork notarized and everything. I didn't want any tube in my throat. VSS, PICC removed per provider order. RN X RAY continuing search for psych bed. Pt laying in bed, eyes closed, respirations visualized. Care ongoing, will continue to monitor.
[2023-01-18] MEDS: TRAZODONE 50 MG TABLET 150 MG PO (20:52)
[2023-01-18] MEDS: DOCUSATE 100 MG CAPSULE PO (21:57)
[2023-01-19] VITALS (21 sets, daily range): BP systolic 130–153; BP diastolic 66–85; PULSE 62–110; RESP 16–20; TEMP 36.7–37.1; O2SAT 90–99
[2023-01-19] MEDS: OXYCODONE IR 5 MG TABLET PO ×3 (01:37→20:25)
[2023-01-19] MEDS: LORazepam 1 MG TABLET 2 MG PO ×2 (01:37→16:37)
[2023-01-19 05:07] LABS: Add Manual Diff / Slide Review NO; Basophils Absolute Auto 0 /uL (0-100); Basophils Percent Auto 0.7 % (0-2); Eosinophils Absolute Auto 100 /uL (0-450); Eosinophils Percent Auto 2.2 % (2-4); Hematocrit 38.3 % (36-46); Hemoglobin 12.8 g/dL (12.0-16.0); Lymphocytes Absolute Auto 2100 /uL (1100-4500); Lymphocytes Percent Auto 31.1 % (25-40); Mean Corpuscular HGB Conc 33.5 % (30-36); Mean Corpuscular Hemoglobin 31.6 PG (26-34); Mean Corpuscular Volume 94.5 fL (80-100); Monocytes Absolute Auto 400 /uL (0-900); Monocytes Percent Auto 6.3 % (3-14); Neutrophils Absolute Auto 4000 /uL (1500-7000); Neutrophils Percent Auto 59.7 % (50-75); Platelet Count 312 X10^3/uL (150-400); Red Blood Cell Count 4.06 X10^6/uL (4.0-5.2); Red Cell Distribution Width 14.8 % (11.6-14.8); White Blood Cell Count 6.7 X10^3/uL (4.5-11.0)
[2023-01-19 05:16] LABS: BUN Creatinine Ratio 5.8 (6-22); Blood Urea Nitrogen 4 mg/dL (7-17); Calcium 9.5 mg/dL (8.4-10.2); Carbon Dioxide 25 mmol/L (22-32); Chloride 106 mmol/L (98-107); Estimated Glomerular Filt Rate > 60 mL/min (>60); Glucose 88 mg/dL (70-100); HEMOLYSIS < 15 (0-50); Magnesium 1.9 mg/dL (1.6-2.3); Potassium 3.6 mmol/L (3.4-5.1); Sodium 138 mmol/L (137-145)
[2023-01-19] MEDS: LEVOTHYROXINE 100 MCG TABLET 200 MCG PO (08:07)
[2023-01-19] MEDS: AMOXICILLIN 250 MG CAPSULE 1000 MG PO ×3 (08:08→20:23)
[2023-01-19] MEDS: TOPIRAMATE 100 MG TABLET 200 MG PO ×2 (08:08→20:24)
[2023-01-19] MEDS: PANTOPRAZOLE DR 40 MG TABLET PO (08:08)
[2023-01-19] MEDS: lamoTRIgine 100 MG TABLET 450 MG PO ×2 (08:08→20:24)
[2023-01-19] MEDS: ALBUTEROL 2.5 MG/3 ML NEB (ADULT) INH ×2 (09:15→19:05)
[2023-01-19] MEDS: DOCUSATE 100 MG CAPSULE PO (10:08)
--- NOTE | 2023-01-19 13:57 | CM.DPNOTE ---
Addendum entered by Nano DawkinsDEREK 01/19/23 16:11: ADD: Two attempts at faxing a clinical packet to [facility] failed this afternoon. This BUSINESS SOLUTIONS DIRECTOR ran out of time to continue attempts. Will ask that the oncoming clinical social worker continue attempt to secure inpatient psychiatric placement for patient. DCR/APD if patient attempts to leave . MAISHA Original Note: DCP Cont Working throughout the day on inpatient psychiatric placement for patient. Patient remains voluntary, tells this BUSINESS SOLUTIONS DIRECTOR she does not want to be detained and she is willing to participate in med management, group therapy and one to one psychiatric care at an inpatient psych unit. Patient has planned to have her friend and ex partner Sil bring her home Cpap in today so that she has it once transferred. Spoke closely throughout the morning with gretta Houston at [facility] inpatient psych unit P# [phone]. Faxed packet. According to [facility]; Dr Key, medical social worker on the psych unit, has declined patient today- DR key reports that patient's QTc is an issue and numbers are far too high to consider for admission to a psychiatric unit today.Dr Key had further explained that before their team can begin any new medication, they would need to wait for QTc to come down which would delay patient's care. Placed call to Dr Monae to update. Dr Monae willing to complete a doc to doc call. Unfortunately, Celso at [facility] requested this of Dr Key and she could not accommodate due to caseload demands. [facility] plans to keep patient's referral and welcomes contact from this SW team over the next 24-48hrs if patient's QTc changes/trends down. Meanwhile, placed call to: [facility]- No beds [facility]- No beds [facility]- Could not get a hold of them today [facility]- No beds [facility]- No beds [facility]- Beds available, faxed clinical packet for review. First fax did not go through Patient updated throughout the day. If no inpatient psychiatric unit is found today, efforts should continue over the weekend. If no inpatient psychiatric unit secured by Sunday, consider asking Dr Manjarrez to reassess. EVELYN team following closely MAISHA
--- NOTE | 2023-01-19 14:17 | PM.PN.1 ---
Subjective Subjective Interval history: Patient calm today, mild anxiety about transition to psych facility. She has improved knee and neck pain today. Exam Vital Signs (past 8 hours): - 01/19/23 08:00 01/19/23 09:15 01/19/23 12:00 Temperature 98.4 F 98.2 F Pulse Rate 94 H 95 H 110 H Respiratory Rate 18 16 20 Blood Pressure 138/84 144/79 H Pulse Oximetry 95 95 95 Oxygen Delivery Method Room Air Oxygen Flow Rate 0 0 Fraction of Inspired Oxygen 40 Oxygen Delivery Method Room Air Oxygen Flow Rate 0 Narrative Exam Narrative: GEN: Alert and oriented, calm and cooperative, mildly anxious, raspy voice HEENT: NC, Face symmetric CHEST: CTA B/l CV: RRR no m/r/g. ABD: S NT ND EXTR: warm, well perfused, no C/C/E SKIN: warm and dry, no rash NEURO: Nonfocal Objective Labs 01/19/23 04:03 01/19/23 04:03 Labs: Laboratory Results - last 24 hr 01/19/23 04:03 WBC 6.7 RBC 4.06 Hgb 12.8 Hct 38.3 MCV 94.5 MCH 31.6 MCHC 33.5 RDW 14.8 Plt Count 312 Neut % (Auto) 59.7 Lymph % (Auto) 31.1 Stark % (Auto) 6.3 Eos % (Auto) 2.2 Baso % (Auto) 0.7 Neut # (Auto) 4000 Lymph # (Auto) 2100 Stark # (Auto) 400 Eos # (Auto) 100 Baso # (Auto) 0 Sodium 138 Potassium 3.6 Chloride 106 Carbon Dioxide 25 BUN 4 L Creatinine 0.69 Estimated GFR > 60 BUN/Creatinine Ratio 5.8 L Glucose 88 Calcium 9.5 Magnesium 1.9 [facility] Medical History Morbid obesity with body mass index (BMI) of 50.0 to 59.9 in adult (~09/26/17) ADD (attention deficit disorder) without hyperactivity Osteoarthritis Migraine Irritable bowel syndrome (IBS) Fibromyalgia Asthma Atherosclerosis of abdominal aorta Type 2 diabetes mellitus Depression Anxiety Primary insomnia Snoring Nocturnal hypoxemia Obstructive sleep apnea of adult Social History household members: friend(s) Assessment & Plan Assessment & Plan narrative: 1. Acute hypoxic respiratory failure, with L neck soft tissue swelling, resolved Initially intubated to protect airway. Successfully extubated on 01/15. Now on room air. Left neck swelling seen on CT likely due to multiple prior CVC attempts. Tramadol and opiate PRN for pain, now changed to all oral medications - no longer requiring oxygen. 2. Polysubstance overdose as suicide attempt Pt reportedly took hydrocodone/APAP, oxycodone/APAP, diazepam, temazepam, nyquil, ambien, and Jeff's Hard lemonade. She received activated charcoal as well as n-acetylcysteine infusion. Poison control recommended the addition of benzodiazepine. I have added a as needed dose of Valium, due to the national shortage of lorazepam. - QTC has been intermittently prolonged, but no events on telemetry for multiple days. QTC has been stable between 440-520, and over the past two days 470-480. This is clinically insignificant and no intervention is required. - Psych consulted and rec inpatient psych treatment. Appreciate psychiatry recommendations thus far. There is no availability in house from Sunday to Sunday for psychiatry. - continue recommend inpatient mental health treatment as home option does not seem safe due to the severity and intentionality of her plan and suicide attempt. She was also previously under outpatient management but stockpiled medications in persuit of her attempted suicide. 3. DM2 - Not presently on any medications. 4. DARON - has not required CPAP at night here. 5. VAP with MSSA CXR with LLL infiltrate and sputum growing MSSA. No leukocytosis or fevers however. Repeat sputum with scant MSSA. De-escalated vanc and zosyn to ancef 2g q8h and now on amoxicillin PO TID. Continue oral antibiotics for now with total 7 days of therapy, to end on 01/21 after 7 days of therapy. 6. Severe anxiety and insomnia Ativan 2mg q4h PRN and haldol 2mg q8h PRN for anxiety. Benadryl and trazodone for sleep. 7. Vaginal candidiasis - secondary to antibiotics for PNA, ordered 1 dose of fluconazole on 01/18. CODE Full Prophy On Lovenox Dispo Medically stable for inpatient psychiatry, pending bed availability. Quality VTE Deep Vein Thrombosis/Pulmonary Embolism Present on Admission: No
[2023-01-19] MEDS: ENOXAPARIN 40 MG/0.4 ML SYRINGE SUBCUT (20:22)
[2023-01-19] MEDS: TRAZODONE 50 MG TABLET 150 MG PO (20:23)
[2023-01-19] MEDS: SUMAtriptan 25 MG TABLET 50 MG PO (20:24)
[2023-01-19] MEDS: SENNOSIDES 8.6 MG TABLET 17.2 MG PO (23:25)
--- NOTE | 2023-01-19 23:28 | PC.NURSE ---
Addendum entered by Isha Dennis R.N. 01/20/23 07:25: Pt was crying on and off throughout the night, c/o migraine and nightmares. Pt had been requesting pain and anxiety medications throughout the night. This am around 0620 this nurse tried to wake up pt to take her morning medications including her prn lorazepam and oxycodone. Pt was too sedated and pills were not given, pt respiration 16 and oxygen level was 95%. Medications were wasted with another RN. Dayshift nurse awared. Original Note: pt asking to go home tonight, stating I just live around the corner.
[2023-01-20] VITALS (7 sets, daily range): BP systolic 105–157; BP diastolic 64–91; PULSE 88–96; RESP 17–18; TEMP 36.6–37.1; O2SAT 90–96
[2023-01-20] MEDS: OXYCODONE IR 5 MG TABLET PO ×2 (02:23→06:25)
[2023-01-20] MEDS: LORazepam 1 MG TABLET 2 MG PO ×4 (02:29→18:00)
[2023-01-20 04:58] LABS: Add Manual Diff / Slide Review NO; Basophils Absolute Auto 0 /uL (0-100); Basophils Percent Auto 0.5 % (0-2); Eosinophils Absolute Auto 100 /uL (0-450); Eosinophils Percent Auto 1.3 % (2-4); Hematocrit 39.9 % (36-46); Hemoglobin 13.4 g/dL (12.0-16.0); Lymphocytes Absolute Auto 1700 /uL (1100-4500); Lymphocytes Percent Auto 23.9 % (25-40); Mean Corpuscular HGB Conc 33.4 % (30-36); Mean Corpuscular Hemoglobin 31.4 PG (26-34); Mean Corpuscular Volume 93.8 fL (80-100); Monocytes Absolute Auto 500 /uL (0-900); Monocytes Percent Auto 6.4 % (3-14); Neutrophils Absolute Auto 4900 /uL (1500-7000); Neutrophils Percent Auto 67.9 % (50-75); Platelet Count 313 X10^3/uL (150-400); Red Blood Cell Count 4.26 X10^6/uL (4.0-5.2); White Blood Cell Count 7.2 X10^3/uL (4.5-11.0)
[2023-01-20 05:07] LABS: BUN Creatinine Ratio 8.2 (6-22); Blood Urea Nitrogen 6 mg/dL (7-17); Calcium 9.6 mg/dL (8.4-10.2); Carbon Dioxide 25 mmol/L (22-32); Chloride 106 mmol/L (98-107); Estimated Glomerular Filt Rate > 60 mL/min (>60); Glucose 97 mg/dL (70-100); HEMOLYSIS < 15 (0-50); Potassium 3.7 mmol/L (3.4-5.1); Sodium 140 mmol/L (137-145)
[2023-01-20] MEDS: PANTOPRAZOLE DR 40 MG TABLET PO (07:30)
[2023-01-20] MEDS: LEVOTHYROXINE 100 MCG TABLET 200 MCG PO (07:31)
[2023-01-20] MEDS: IBUPROFEN 600 MG TABLET PO (09:09)
[2023-01-20] MEDS: AMOXICILLIN 250 MG CAPSULE 1000 MG PO ×2 (09:09→14:27)
[2023-01-20] MEDS: lamoTRIgine 100 MG TABLET 450 MG PO (09:10)
[2023-01-20] MEDS: ALBUTEROL 2.5 MG/3 ML NEB (ADULT) INH (09:13)
[2023-01-20] MEDS: SENNOSIDES 8.6 MG TABLET 17.2 MG PO (09:15)
[2023-01-20] MEDS: ENOXAPARIN 40 MG/0.4 ML SYRINGE SUBCUT (09:16)
[2023-01-20] MEDS: DOCUSATE 100 MG CAPSULE PO (09:16)
[2023-01-20] MEDS: SUMAtriptan 6 MG/0.5 ML VIAL SUBCUT (09:42)
[2023-01-20] MEDS: TOPIRAMATE 100 MG TABLET 200 MG PO (09:43)
--- NOTE | 2023-01-20 12:57 | PM.DS.1 ---
History of Present Illness History of Present Illness Chief complaint: OD Narrative: Per admitting physician: 48 year old here with multisubstance overdose via ambulance and intubated for airway protection as she was unresponsive and did not respond to narcan. The recent history is that she texted someone that she had overdosed to kill herself and texted she took Vicodin, Percocet, Valium, Restoril, Nyquil, Ambien and Jeff's hard lemonade. Evaluation in the ED was positive for UDS with opiates, benzodiazipines, marijuana and TCA. She was noted to have prolonged QT and given bicarbonate with improvement. She also had a tylenol level of 50 and was started on NAC per poison control and a repeat tylenol level has been ordered. The original LFTS are not elevated. She has evidently tried to kill herself in the past per the ED. The patient is currently sedated and not able to participate in her history. After intubation she had a brief episode of hypotension (likely due to etomidate with all the substances on board) but this resolved after levophed for a short period. 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 Suicide attempt, polysubstance overdose 2. Acute hypoxic respiratory failure 3. Ventilator associated pneumonia, MSSA 4. type 2 Diabetes 5. DARON 6. anxiety 7. Insomnia 8. Vaginal candidiasis 9. Migraine disorder Hospital Course: Ms. Denis was admitted after a suicide attempt. This attempt involved weeks of planning by acquiring and storing multiple different medications which she took in attempt to commit suicide. These included reportedly vicodin, percocet, diazepam, temazepam, ambien, nyquil, and alcohol. She was intubated due to altered mental status and respiratory depression. She was extubated 01/15 and her respiratory status was stable afterwards. She was diagnosed with a pneumonia in setting of intubation and should be on antibiotics through 01/21. She can finish a course of amoxicillin 1000mg TID through 01/21 which will complete one week of antibiotics for MSSA pneumonia. She was seen by psychiatrist here who did recommend inpatient psychiatric admission. She was recommended to be on lamotrigine, which she had been on before, but had not been recently taking prior to admission. She was also ordered for ativan due to severe anxiety. She had complaints of headaches and wanted increasing doses of narcotics, but this was attempted to be avoided by ordering her ibuprofen and sumatriptan. She is transferred to inpatient psyciatry for further treatment. Exam Vital Signs (past 8 hours): - 01/20/23 08:18 01/20/23 09:13 01/20/23 12:00 Temperature 98.7 F 98 F Pulse Rate 89 90 90 Respiratory Rate 17 18 17 Blood Pressure 157/84 H 105/68 Pulse Oximetry 95 96 96 Oxygen Delivery Method Room Air Oxygen Flow Rate 0 0 Fraction of Inspired Oxygen 40 Oxygen Delivery Method Room Air Oxygen Flow Rate 0 Narrative Exam Narrative: GEN: no acute distress, anxious CHEST: clear bilaterally CV: regular rate and rhythm, no murmurs EXTR: warm, well perfused, no C/C/E SKIN: warm and dry, no rash NEURO: Nonfocal Objective Labs 01/20/23 04:00 01/20/23 04:00 Labs: Laboratory Results - last 24 hr 01/20/23 04:00 WBC 7.2 RBC 4.26 Hgb 13.4 Hct 39.9 MCV 93.8 MCH 31.4 MCHC 33.4 RDW 15.0 H Plt Count 313 Neut % (Auto) 67.9 Lymph % (Auto) 23.9 L Bleckley % (Auto) 6.4 Eos % (Auto) 1.3 L Baso % (Auto) 0.5 Neut # (Auto) 4900 Lymph # (Auto) 1700 Bleckley # (Auto) 500 Eos # (Auto) 100 Baso # (Auto) 0 Sodium 140 Potassium 3.7 Chloride 106 Carbon Dioxide 25 BUN 6 L Creatinine 0.73 Estimated GFR > 60 BUN/Creatinine Ratio 8.2 Glucose 97 Calcium 9.6 Magnesium 2.0 [facility] Medical History Morbid obesity with body mass index (BMI) of 50.0 to 59.9 in adult (~09/26/17) ADD (attention deficit disorder) without hyperactivity Osteoarthritis Migraine Irritable bowel syndrome (IBS) Fibromyalgia Asthma Atherosclerosis of abdominal aorta Type 2 diabetes mellitus Depression Anxiety Primary insomnia Snoring Nocturnal hypoxemia Obstructive sleep apnea of adult Social History household members: friend(s) Discharge Plan Discharge Plan Other facility: [facility] Discharge orders & Medications Discharge Orders: Discharge (Order); Ordered 01/20/23 Ordered By: Eliot Carvalho Prescriptions: New acetaminophen 325 mg Tablet 975 mg PO Q6H PRN (Reason: Fever/Mild Pain (1-3)) Qty: 1 0RF docusate sodium 100 mg Capsule 100 mg PO BID PRN (Reason: Constipation) Qty: 1 0RF amoxicillin 250 mg Capsule 1,000 mg PO TID Qty: 1 0RF Cepacol Sore Throat (alma-men) 15-2.6 mg Lozenge 1 inna PO Q1HR PRN (Reason: Sore Throat) Qty: 1 0RF polyethylene glycol 3350 17 gram Powder In Packet 17 g PO BID PRN (Reason: Constipation) Qty: 1 0RF levothyroxine [Synthroid] 100 mcg Tablet 200 mcg PO 0600 Qty: 1 0RF lorazepam 1 mg Tablet 2 mg PO Q4HR PRN (Reason: Anxiety) Qty: 1 0RF lamotrigine [Lamictal] 100 mg Tablet 450 mg PO BID Qty: 1 0RF oxycodone 5 mg Tablet 5 mg PO Q4HR PRN (Reason: Pain, Moderate (4-6)) Qty: 1 0RF Liraglutide 1.8 mg SUBCUT DAILY Qty: 1 0RF Discontinued sumatriptan succinate 50 mg tablet 50 mg PO PRN PRN (Reason: Migraine Headache) trazodone 150 mg tablet 150 mg PO ONCE PM levothyroxine 200 mcg tablet 200 mcg PO DAILY topiramate 200 mg tablet 200 mg PO BID haloperidol 2 mg tablet 2 mg PO BID PRN (Reason: anxiety attack) lamotrigine 100 mg Tablet 450 mg PO BID Victoza 2-Jorden 0.6 mg/0.1 mL (18 mg/3 mL) pen injector 1.8 mg SUBCUT DAILY Follow up/Referrals: Kirby Olsen MD [Primary Care Provider] - Diet/Activity/Treatments Diet: Regular Visit Report/Discharge Packet Instructions: Naloxone for Opiate Overdose - [facility] Stand Alone Forms: Patient Portal/API, Stroke Signs & Symptoms, Naloxone Standing Order [facility] Discharge Data Primary Care Provider: Kirby Olsen Quality VTE Deep Vein Thrombosis/Pulmonary Embolism Present on Admission: No
[2023-01-20 13:00] LABS: COVID19 -Nasal RAPID Negative (Negative)
[2023-01-20] MEDS: ACETAMINOPHEN 325 MG TABLET 975 MG PO (13:32)
--- NOTE | 2023-01-20 15:06 | CM.DPC ---
DCP Cont. Reviewed EMR and team rounds for updates. Called [facility] this morning, they can accept tonight for admit. Completed the BLS transport forms, waiting for time for admit so we can move forward with BLS transport coordination for p/u time. Pt expresses understanding and agrees with the transfer.
--- NOTE | 2023-01-20 16:26 | PC.NURSE ---
1630 Report called to [facility] accepting. Waiting for transport.
== END 2023-01-20 18:18 | DRG 817 ==
LOC: ED 17:55 → ICU 22:08 → AC 08-24 10:56 → ICU 08-24 10:56
PROVIDERS: Anesthesiology Critical Care Medicine; Emergency Medicine; Internal Medicine; Internal Medicine Critical Care Medicine; Student in an Organized Health Care Education/Training Program; Admitting Provider Internal Medicine; Emergency Provider Emergency Medicine; Family Provider Internal Medicine; PCP Internal Medicine; Referring Provider Emergency Medicine; Visit Provider Internal Medicine
DX: T40.2X2A Poisoning by other opioids, intentional self-harm, initial encounter (principal); T42.4X2A Poisoning by benzodiazepines, intentional self-harm, initial encounter; T42.6X2A Poisoning by other antiepileptic and sedative-hypnotic drugs, intentional self-harm, initial encounter; T51.0X2A Toxic effect of ethanol, intentional self-harm, initial encounter; T39.1X2A Poisoning by 4-Aminophenol derivatives, intentional self-harm, initial encounter; T48.3X2A Poisoning by antitussives, intentional self-harm, initial encounter; T45.0X2A Poisoning by antiallergic and antiemetic drugs, intentional self-harm, initial encounter; T44.4X2A Poisoning by predominantly alpha-adrenoreceptor agonists, intentional self-harm, initial encounter; J95.851 Ventilator associated pneumonia; E66.01 Morbid (severe) obesity due to excess calories; Z68.43 Body mass index [BMI] 50.0-59.9, adult; J96.01 Acute respiratory failure with hypoxia; G47.33 Obstructive sleep apnea (adult) (pediatric); F41.9 Anxiety disorder, unspecified; G43.909 Migraine, unspecified, not intractable, without status migrainosus; R94.31 Abnormal electrocardiogram [ECG] [EKG]; F32.9 Major depressive disorder, single episode, unspecified; B95.61 Methicillin susceptible Staphylococcus aureus infection as the cause of diseases classified elsewhere; E11.9 Type 2 diabetes mellitus without complications; B37.31 Acute candidiasis of vulva and vagina; F98.8 Other specified behavioral and emotional disorders with onset usually occurring in childhood and adolescence; M19.90 Unspecified osteoarthritis, unspecified site; M79.7 Fibromyalgia; I70.0 Atherosclerosis of aorta; F51.01 Primary insomnia
CPT/HCPCS: 31500; 36415; 36569; 36573; 36592; 36600; 70491; 71045; 80048; 80053; 80076; 80202; 80305; 80320; 80329; 81025; 82550; 82553; 82805; 82962; 83605; 83690; 83735; 84484; 85025; 85610; 85730; 87040; 87070; 87077; 87147; 87186; 87205; 87635; 87797; 90792; 92950; 93005; 93010; 94002; 94003; 94010; 94640; 94762; 94799; 96365; 96366; 96367; 96368; 99233; 99285; 99291; 99292; C9803; G0378; C9113; G0480; J0132; J0690; J1170; J1200; J1642; J1650; J2250; J2310; J2405; J2543; J2704; J3010; J3030; J3475; J7613; Q9967

== ENCOUNTER → 2023-07-03 13:45 | Outpatient (CLI) | payer OTHER, MEDICAID, SELFPAY ==
[2023-01-11 23:00] VITALS: BMI 41.0
[2023-01-14 08:09] VITALS: RESP 0
[2023-01-15 07:45] VITALS: PULSE 47; RESP 16; O2SAT 95
[2023-07-03 15:02] LABS: Testosterone 1160 ng/dL (5.71-77.0)
== END ==
PROVIDERS: Family Provider Internal Medicine; PCP Internal Medicine; Referring Provider Internal Medicine; Visit Provider Internal Medicine
DX: Z79.890 Hormone replacement therapy (principal)
CPT/HCPCS: 36415; 84403

== ENCOUNTER 2023-09-08 14:19 | Emergency (ER) | payer OTHER, MEDICAID, SELFPAY ==
[2023-01-11 23:00] VITALS: BMI 41.0
[2023-01-14 08:09] VITALS: RESP 0
[2023-01-15 07:45] VITALS: PULSE 47; RESP 16; O2SAT 95
[2023-09-08] VITALS (11 sets, daily range): BP systolic 126–160; BP diastolic 77–98; PULSE 67–80; RESP 16; TEMP 36.7; O2SAT 92–98; BMI 31.7
--- NOTE | 2023-09-08 14:23 | ED.GENADULT ---
HPI - General Adult General Chief complaint: Headache Stated complaint: MIGRAINE< SEVERE Time Seen by Provider: 09/08/23 14:22 Source: patient, RN notes reviewed and old records reviewed Mode of arrival: Ambulatory Limitations: no limitations History of Present Illness HPI narrative: 48-year-old female with history of mood disorder, DARON presents, does take testosterone with complaint of headache patient states she does have a history of migraines but states this is different. Began sudden onset while having sexual activity patient states had nausea and vomiting initially. Has taken Zofran but still somewhat nauseated. Headache has not resolved. States she feels it in the occipital area as well as behind her right eye. Describes it as something banging on her head. Does not radiate elsewhere. She does have some photophobia with it. Denies fevers. Denies numbness tingling or weakness. No chest pain or shortness breath. No bowel or bladder incontinence. Patient has had headaches associated with sexual activity before but not this significant. She states the location is very similar along with the nausea vomiting but the sudden onset and severity of the headache is worse than her typical migraine. She is tried Tylenol, ibuprofen, Zofran, sumatriptan without any improvement. Patient states known drug allergies. Does use tobacco daily vapes, denies any alcohol, uses marijuana no other recreational drugs. Patient is accompanied friend today. Related Data Previous Rx's Medication Instructions Recorded Liraglutide 1.8 mg SUBCUT DAILY #1 dose 01/20/23 acetaminophen 325 mg tablet 975 mg (3 x 325 mg) PO Q6H PRN 01/20/23 Fever/Mild Pain (1-3) #1 tab amoxicillin 250 mg capsule 1,000 mg (4 x 250 mg) PO TID #1 cap 01/20/23 benzocaine 15 mg-menthol 2.6 mg 1 inna PO Q1HR PRN Sore Throat #1 ea 01/20/23 lozenges (Cepacol Sore Throat (benzocaine-menthol)) docusate sodium 100 mg capsule 100 mg PO BID PRN Constipation #1 01/20/23 cap lamotrigine 100 mg tablet 450 mg (4.5 x 100 mg) PO BID #1 tab 01/20/23 (Lamictal) levothyroxine 100 mcg tablet 200 mcg (2 x 100 mcg) PO 0600 #1 01/20/23 (Synthroid) tab lorazepam 1 mg tablet 2 mg (2 x 1 mg) PO Q4HR PRN 01/20/23 Anxiety #1 tab oxycodone 5 mg tablet 5 mg PO Q4HR PRN Pain, Moderate 01/20/23 (4-6) #1 tab polyethylene glycol 3350 17 gram 17 g PO BID PRN Constipation #1 ea 01/20/23 oral powder packet Allergies Allergy/AdvReac Type Severity Reaction Status Date / Time bee venom protein (honey bee) Allergy Severe Anaphylaxis Verified 01/17/23 10:54 gabapentin AdvReac Mild I gain a Verified 01/17/23 10:54 massive amount of weight Review of Systems Review of Systems ROS Unobtainable: All systems reviewed & are unremarkable except as noted in HPI and below Patient History Medical History Morbid obesity with body mass index (BMI) of 50.0 to 59.9 in adult (~09/26/17) ADD (attention deficit disorder) without hyperactivity Osteoarthritis Migraine Irritable bowel syndrome (IBS) Fibromyalgia Asthma Atherosclerosis of abdominal aorta Type 2 diabetes mellitus Depression Anxiety Primary insomnia Snoring Nocturnal hypoxemia Obstructive sleep apnea of adult Social History household members: friend(s) Smoking Status: Current every day smoker Exam Narrative Exam Narrative: GEN: well nourished, well appearing, alert and oriented x 3, patient appears to be in mild distress. HEENT: Atraumatic, pupils are equal round reactive to light, mild photophobia, extraocular movements are intact, no nystagmus, nares are clear, TMs are clear with no fluid, there is no conjunctival pallor. Throat is clear without any exudates, erythema, tonsillar enlargement or uvular deviation, no meningeal signs HEART: Regular rate and rhythm without murmur, clicks, rubs. Pulses are equal in upper and lower extremities LUNGS:Lungs clear to auscultation, no wheezes, rales, crackles, chest moves symmetrically ABD:bowel sounds normal, soft, non-tender, no guarding, rebound, rigidity, no masses noted, no hepatosplenomegaly :No CVA tenderness MSCL: Non-tender, no muscle atrophy, muscles strength 5/5 upper and lower extremities, full range of motion, normal gait NEURO:CN 2-12 intact, sensation normal, reflexes 2/4 upper and lower extremities. finger nose finger test normal, heel roberts test normal. SKIN: No rash, erythema or other skin changes Initial Vital Signs Initial Vital Signs: Vital Signs Pulse Rate 78 09/08/23 14:23 Blood Pressure 160/98 H 09/08/23 14:23 Pulse Oximetry 94 09/08/23 14:23 Course Orders Ordered: Discontinued Medications Dexamethasone (Dexamethasone 10 Mg/Ml Vial) 10 mg IV NOW ONE Stop: 09/08/23 16:40 Last Admin: 09/08/23 16:49 Dose: 10 mg Documented By: RUEL Sodium Chloride (Normal Saline 0.9%) 1,000 mls @ 1,000 mls/hr IV BOLUS ONE Stop: 09/08/23 15:47 Last Infusion: 09/08/23 17:27 Dose: Infused Documented By: Admin: 09/08/23 14:59 Dose: 1,000 mls/hr Documented By: MARIA ISABEL Ketorolac Tromethamine (Ketorolac 30 Mg/Ml Vial) 15 mg IV NOW ONE Stop: 09/08/23 16:40 Last Admin: 09/08/23 16:48 Dose: 15 mg Documented By: RUEL Metoclopramide HCl (Metoclopramide 10 Mg/2 Ml Inj) 10 mg IV NOW ONE Stop: 09/08/23 14:49 Last Admin: 09/08/23 14:59 Dose: 10 mg Documented By: MARIA ISABEL Morphine Sulfate (Morphine 4 Mg/Ml Inj) 4 mg IV NOW ONE Stop: 09/08/23 14:49 Last Admin: 09/08/23 14:58 Dose: 4 mg Documented By: MARIA ISABEL Vital Signs Vital signs: Vital Signs - 8 hr 09/08/23 14:23 09/08/23 14:23 09/08/23 14:27 Temperature 98.1 F Pulse Rate 78 80 Respiratory Rate 16 Blood Pressure 160/98 H 160/98 H Pulse Oximetry 94 96 Oxygen Delivery Method Room Air 09/08/23 14:30 09/08/23 15:00 09/08/23 15:30 Temperature Pulse Rate 76 72 77 Respiratory Rate Blood Pressure Pulse Oximetry 95 95 92 Oxygen Delivery Method 09/08/23 15:46 09/08/23 15:46 09/08/23 16:00 Temperature Pulse Rate 77 73 Respiratory Rate Blood Pressure 126/77 Pulse Oximetry 96 93 Oxygen Delivery Method 09/08/23 16:30 09/08/23 17:00 09/08/23 17:30 Temperature Pulse Rate 70 68 68 Respiratory Rate Blood Pressure Pulse Oximetry 92 96 98 Oxygen Delivery Method 09/08/23 18:00 Temperature Pulse Rate 67 Respiratory Rate Blood Pressure Pulse Oximetry 98 Oxygen Delivery Method Medical Decision Making Lab Data 09/08/23 14:38 09/08/23 14:38 Labs: Lab Results 09/08/23 Range/Units 14:38 WBC 6.8 (4.5-11.0) X10^3/uL RBC 5.76 H (4.0-5.2) X10^6/uL Hgb 17.6 H (12.0-16.0) g/dL Hct 53.0 H (36-46) % MCV 92.0 (80-100) fL MCH 30.5 (26-34) PG MCHC 33.1 (30-36) % RDW 13.2 (11.6-14.8) % Plt Count 234 (150-400) X10^3/uL Neut % (Auto) 61.6 (50-75) % Lymph % (Auto) 33.3 (25-40) % Barry % (Auto) 4.1 (3-14) % Eos % (Auto) 0.6 L (2-4) % Baso % (Auto) 0.4 (0-2) % Neut # (Auto) 4200 (3121-8439) /uL Lymph # (Auto) 2300 (4688-8234) /uL Barry # (Auto) 300 (0-900) /uL Eos # (Auto) 0 (0-450) /uL Baso # (Auto) 0 (0-100) /uL Sodium 139 (137-145) mmol/L Potassium 4.2 (3.4-5.1) mmol/L Chloride 112 H (98-107) mmol/L Carbon Dioxide 20 L (22-32) mmol/L BUN 9 (7-17) mg/dL Creatinine 0.93 (0.52-1.04) mg/dL Estimated GFR > 60 (>60) mL/min BUN/Creatinine Ratio 9.7 (6-22) Glucose 93 (70-100) mg/dL Calcium 9.2 (8.4-10.2) mg/dL Imaging Data CT scan - head: Radiologist's Impression: [address] [address] [address] Scan Report Signed Patient: Jacqui Denis MR#: [id number] : 1975 Acct:[id number] Age/Sex: 48 / F Date of Service: 09/08/23 Loc: ED Accession Number: [id number] Procedure: CT head/brain wo con Ordering Provider: Marycruz Richards D.O. PROCEDURE: CT HEAD/BRAIN WO CON INDICATIONS: natarajan, sudden onset during sex, occipital/right eye TECHNIQUE: Noncontrast 4.5 mm thick angled axial sections acquired from the foramen magnum to the vertex, with coronal and sagittal reformats. For radiation dose reduction, the following was used: automated exposure control, adjustment of mA and/or kV according to patient size. COMPARISON: [facility], CT, CT HEAD WITH/WITHOUT CONTRAST, 08/29/2022, 13:29. FINDINGS: Image quality: Diagnostic. CSF spaces: Basal cisterns are patent. No extra-axial fluid collections. Ventricles are normal in size and shape. Brain: No midline shift. No intracranial masses or hemorrhage. Whitlock-white matter interface is normal. Skull and face: Calvarium and visualized facial bones are intact, without suspicious lesions. Sinuses: Visualized sinuses and mastoids are clear. IMPRESSION: No acute intracranial pathology. Dictated by: Lio Guerra M.D. on 09/08/2023 at 16:02 Approved by: Lio Guerra M.D. on 09/08/2023 at 16:03 [facility] Narrative Medical decision making narrative: 48-year-old individual presents with a complaint of history of migraines but sudden onset during sexual activity worst headache of the life, states similar pattern in terms of location but much more intense and has not resolved. Has had 2 prior episodes were similar circumstances. Patient tried several home medications without success. Head CT is negative. CT angio multinodular goiter nonemergent thyroid ultrasound recommended if not previously performed. No acute intracranial a or changes to the neck. Labs Show white count of 6.8 hemoglobin of 17 platelets of 234. Electrolytes show chloride of 112 CO2 of 20 normal BUN creatinine with normal sodium and potassium. Recheck after fluids, antinausea medications and pain medication. Patient has had some improvement but still headache. Reviewed CT findings. No acute neurologic changes here in the department. Discussed with patient we will give some additional medications and re-evaluate. Patient feels much improved. Discussed return precautions. Discharge Plan Departure Patient Disposition: Home Clinical Impression: Headache, Multinodular goiter Instructions: DI for Headache Activity Restrictions/Additional Instructions: Please follow up with your physician for recheck. Your CT imaging incidentally shows a multinodular thyroid. Please your physician for recheck and thyroid ultrasound if you have not had one before and if they are not following this. Your imaging shows normal arteries and vessels of the neck and brain. Talk with your physician if you keep having headaches related to sexual intercourse they are sometimes medications that can be helpful. Please return for severe headaches, new vision changes, numbness tingling or weakness, facial droop, difficulty with movement, persistent vomiting, fevers or any other new or concerning changes. Prescriptions: No Action acetaminophen 325 mg Tablet 975 mg PO Q6H PRN (Reason: Fever/Mild Pain (1-3)) Qty: 1 0RF docusate sodium 100 mg Capsule 100 mg PO BID PRN (Reason: Constipation) Qty: 1 0RF amoxicillin 250 mg Capsule 1,000 mg PO TID Qty: 1 0RF Cepacol Sore Throat (alma-men) 15-2.6 mg Lozenge 1 inna PO Q1HR PRN (Reason: Sore Throat) Qty: 1 0RF polyethylene glycol 3350 17 gram Powder In Packet 17 g PO BID PRN (Reason: Constipation) Qty: 1 0RF levothyroxine [Synthroid] 100 mcg Tablet 200 mcg PO 0600 Qty: 1 0RF lorazepam 1 mg Tablet 2 mg PO Q4HR PRN (Reason: Anxiety) Qty: 1 0RF lamotrigine [Lamictal] 100 mg Tablet 450 mg PO BID Qty: 1 0RF oxycodone 5 mg Tablet 5 mg PO Q4HR PRN (Reason: Pain, Moderate (4-6)) Qty: 1 0RF Liraglutide 1.8 mg SUBCUT DAILY Qty: 1 0RF Referrals: Kirby Olsen MD [Primary Care Provider] - Stand Alone Forms: Patient Portal/API
--- NOTE | 2023-09-08 14:48 | DI.CT.S_ITS ---
PROCEDURE: CT ANGIO HEAD AND NECK INDICATIONS: natarajan, sudden onset during sex, occipital/right eye TECHNIQUE: After the administration of intravenous contrast, 1 mm thick sections acquired from the aortic arch through the [place]. 3-dimensional mongvth-ngbjtowrv-urpkkhyscl (MIP) and/or volume rendering reformats were acquired of the central intracranial vasculature and neck separately. For radiation dose reduction, the following was used: automated exposure control, adjustment of mA and/or kV according to patient size. COMPARISON: None. FINDINGS: Image quality: Diagnostic. BRAIN: Please refer to same day CT of the head. HEAD CT ANGIOGRAPHY: Anterior circulation: Intracranial internal carotid arteries are normal in size and flow. The flow within the paired anterior cerebral arteries is normal and symmetric. The flow within the middle cerebral arteries is normal and symmetric. The anterior communicating artery is seen. No aneurysms are seen. Posterior circulation: Visualized portions of the vertebral arteries demonstrate normal caliber, and join to form a normal appearing basilar artery. origin of the right BILL PEDDLER. Flow within the posterior cerebral arteries is normal and symmetric. No aneurysms are seen. NECK CT ANGIOGRAPHY: Carotid system: The great vessels demonstrate a conventional anatomy as they arise from the aortic arch. The origins of the common carotid arteries appear patent. The common carotid arteries demonstrate normal caliber and courses. The bifurcation regions are both widely patent. The internal carotid arteries demonstrate normal calibers and courses. Posterior circulation: The origins of the vertebral arteries both appear widely patent. The more superior extracranial portions of both vertebral arteries also demonstrate normal courses and calibers. They join to form a normal appearing basilar artery. Soft tissues: Visualized neck soft tissues demonstrate no suspicious abnormalities. Enlarged multinodular thyroid. Bones: No suspicious bony lesions. Degenerative changes of the spine. Visualized cervical spine appears normally aligned. IMPRESSION: No significant intracranial arterial abnormality is seen. No significant abnormality is seen within the arteries of the neck. Multinodular goiter. Nonurgent thyroid ultrasound can be obtained if not previously performed. Any quantitative measurements of stenosis were performed using NASCET criteria. Dictated by: Lio Guerra M.D. on 09/08/2023 at 16:03 Approved by: Lio Guerra M.D. on 09/08/2023 at 16:07
--- NOTE | 2023-09-08 14:48 | DI.CT.S_ITS ---
PROCEDURE: CT HEAD/BRAIN WO CON INDICATIONS: natarajan, sudden onset during sex, occipital/right eye TECHNIQUE: Noncontrast 4.5 mm thick angled axial sections acquired from the foramen magnum to the vertex, with coronal and sagittal reformats. For radiation dose reduction, the following was used: automated exposure control, adjustment of mA and/or kV according to patient size. COMPARISON: [facility], CT, CT HEAD WITH/WITHOUT CONTRAST, 08/29/2022, 13:29. FINDINGS: Image quality: Diagnostic. CSF spaces: Basal cisterns are patent. No extra-axial fluid collections. Ventricles are normal in size and shape. Brain: No midline shift. No intracranial masses or hemorrhage. [place]-white matter interface is normal. Skull and face: Calvarium and visualized facial bones are intact, without suspicious lesions. Sinuses: Visualized sinuses and mastoids are clear. IMPRESSION: No acute intracranial pathology. Dictated by: Lio Guerra M.D. on 09/08/2023 at 16:02 Approved by: Lio Guerra M.D. on 09/08/2023 at 16:03
[2023-09-08] MEDS: MORPHINE 4 MG/ML INJ IV (14:58)
[2023-09-08] MEDS: METOCLOPRAMIDE 10 MG/2 ML INJ IV (14:59)
[2023-09-08] MEDS: SODIUM CHLORIDE 0.9% 1,000 ML 1000 ML IV (14:59)
[2023-09-08 15:02] LABS: BUN Creatinine Ratio 9.7 (6-22); Blood Urea Nitrogen 9 mg/dL (7-17); Calcium 9.2 mg/dL (8.4-10.2); Carbon Dioxide 20 mmol/L (22-32); Chloride 112 mmol/L (98-107); Estimated Glomerular Filt Rate > 60 mL/min (>60); Glucose 93 mg/dL (70-100); HEMOLYSIS < 15 (0-50); Potassium 4.2 mmol/L (3.4-5.1); Sodium 139 mmol/L (137-145)
[2023-09-08 15:10] LABS: Add Manual Diff / Slide Review NO; Basophils Absolute Auto 0 /uL (0-100); Basophils Percent Auto 0.4 % (0-2); Eosinophils Absolute Auto 0 /uL (0-450); Eosinophils Percent Auto 0.6 % (2-4); Hemoglobin 17.6 g/dL (12.0-16.0); Lymphocytes Absolute Auto 2300 /uL (1100-4500); Lymphocytes Percent Auto 33.3 % (25-40); Mean Corpuscular HGB Conc 33.1 % (30-36); Mean Corpuscular Hemoglobin 30.5 PG (26-34); Monocytes Absolute Auto 300 /uL (0-900); Monocytes Percent Auto 4.1 % (3-14); Neutrophils Absolute Auto 4200 /uL (1500-7000); Neutrophils Percent Auto 61.6 % (50-75); Platelet Count 234 X10^3/uL (150-400); Red Blood Cell Count 5.76 X10^6/uL (4.0-5.2); Red Cell Distribution Width 13.2 % (11.6-14.8); White Blood Cell Count 6.8 X10^3/uL (4.5-11.0)
[2023-09-08] MEDS: KETOROLAC 30 MG/ML VIAL 15 MG IV (16:48)
[2023-09-08] MEDS: DEXAMETHASONE 10 MG/ML VIAL IV (16:49)
== END 2023-09-08 18:18 | disposition home or self-care (01) ==
PROVIDERS: Emergency Provider Emergency Medicine; Family Provider Internal Medicine; PCP Internal Medicine
DX: R51.9 Headache, unspecified (principal); E04.2 Nontoxic multinodular goiter; R11.2 Nausea with vomiting, unspecified
CPT/HCPCS: 70450; 70496; 70498; 80048; 85025; 96361; 96374; 96375; 99283; 99284; J1100; J1885; J2270; J2765; Q9967

== ENCOUNTER 2023-10-28 17:04 | Emergency (ER) | payer OTHER, MEDICAID, SELFPAY ==
[2023-01-11 23:00] VITALS: BMI 41.0
[2023-01-14 08:09] VITALS: RESP 0
[2023-01-15 07:45] VITALS: PULSE 47; RESP 16; O2SAT 95
[2023-10-28 17:13] VITALS: BP 114/66; PULSE 96; RESP 16; TEMP 36.7; O2SAT 93; BMI 15.5
--- NOTE | 2023-10-28 18:03 | ED.WOUNDLAC ---
HPI - Wound/Laceration <Nano Alcantara PA-C - Last Filed: 10/28/23 18:26> General Chief Complaint: Wound/Laceration Stated Complaint: roberts laceration Time Seen by Provider: 10/28/23 17:44 Source: patient Mode of arrival: Ambulatory History of Present Illness HPI narrative: Patient is a pleasant 48-year-old female that presents to the emergency room department with a large laceration to the roberts area of her right lower extremity. Patient's basset hound scraped her roberts with its Paw causing the large deep laceration. No other further complaints. Related Data Previous Rx's Medication Instructions Recorded Liraglutide 1.8 mg SUBCUT DAILY #1 dose 01/20/23 acetaminophen 325 mg tablet 975 mg (3 x 325 mg) PO Q6H PRN 01/20/23 Fever/Mild Pain (1-3) #1 tab amoxicillin 250 mg capsule 1,000 mg (4 x 250 mg) PO TID #1 cap 01/20/23 benzocaine 15 mg-menthol 2.6 mg 1 inna PO Q1HR PRN Sore Throat #1 ea 01/20/23 lozenges (Cepacol Sore Throat (benzocaine-menthol)) docusate sodium 100 mg capsule 100 mg PO BID PRN Constipation #1 01/20/23 cap lamotrigine 100 mg tablet 450 mg (4.5 x 100 mg) PO BID #1 tab 01/20/23 (Lamictal) levothyroxine 100 mcg tablet 200 mcg (2 x 100 mcg) PO 0600 #1 01/20/23 (Synthroid) tab lorazepam 1 mg tablet 2 mg (2 x 1 mg) PO Q4HR PRN 01/20/23 Anxiety #1 tab oxycodone 5 mg tablet 5 mg PO Q4HR PRN Pain, Moderate 01/20/23 (4-6) #1 tab polyethylene glycol 3350 17 gram 17 g PO BID PRN Constipation #1 ea 01/20/23 oral powder packet Allergies Allergy/AdvReac Type Severity Reaction Status Date / Time bee venom protein (honey bee) Allergy Severe Anaphylaxis Verified 10/28/23 17:17 gabapentin AdvReac Mild I gain a Verified 10/28/23 17:17 massive amount of weight Review of Systems <Nano Alcantara PA-C - Last Filed: 10/28/23 18:26> Review of Systems Narrative: Negative except as above Integumentary/Breasts Comments: Large laceration to the right roberts Patient History <Nano Alcantara PA-C - Last Filed: 10/28/23 18:26> Medical History Morbid obesity with body mass index (BMI) of 50.0 to 59.9 in adult (~09/26/17) ADD (attention deficit disorder) without hyperactivity Osteoarthritis Migraine Irritable bowel syndrome (IBS) Fibromyalgia Asthma Atherosclerosis of abdominal aorta Type 2 diabetes mellitus Depression Anxiety Primary insomnia Snoring Nocturnal hypoxemia Obstructive sleep apnea of adult Social History household members: friend(s) Smoking Status: Current every day smoker Smoking Status: Current every day smoker tobacco type: vaping Substance Use Type: marijuana Exam <Nano Alcantara PA-C - Last Filed: 10/28/23 18:26> Initial Vital Signs Initial Vital Signs: Vital Signs Temperature 98.1 F 10/28/23 17:13 Pulse Rate 96 H 10/28/23 17:13 Respiratory Rate 16 10/28/23 17:13 Blood Pressure 114/66 10/28/23 17:13 Pulse Oximetry 93 10/28/23 17:13 Oxygen Delivery Method Room Air 10/28/23 17:13 Reviewed Const General: cooperative, healthy appearing, comfortable, well developed, well groomed and anxious Eyes General: Yes appearance normal, both eyes and all related structures Pupils: PERRL and normal by confrontation EOM: EOM intact bilaterally Skin Other: Large laceration to the distal aspect of the right roberts. 6 in in length Neuro General: patient alert, patient awake, patient oriented x3, oriented and gait normal Cranial Nerves: CN's II-XI intact bilaterally Cognition: normal cognition Speech: speech normal Gait: normal gait Motor: muscle tone normal throughout Extrem Other: Range of motion, strength, pulses, cap refill preserved in the upper and lower extremities Psych Appearance: grossly normal Mental Status: mental status grossly normal Speech and Movement: speech and movement normal Mood: congruent mood Affect: normal affect Attitude: cooperative Thought Process: normal Thought Content: normal Judgment: judgment good <Ilan Amaro DO - Last Filed: 11/01/23 17:55> Initial Vital Signs Initial Vital Signs: Vital Signs Temperature 98.1 F 10/28/23 17:13 Pulse Rate 96 H 10/28/23 17:13 Respiratory Rate 16 10/28/23 17:13 Blood Pressure 114/66 10/28/23 17:13 Pulse Oximetry 93 10/28/23 17:13 Oxygen Delivery Method Room Air 10/28/23 17:13 Procedures <Nano Alcantara PA-C - Last Filed: 10/28/23 18:26> Laceration Repair Laceration 1: Description: linear and clean Depth: simple, single layer Local Anesthetic: lidocaine 1% Amount of anesthesia used (mL): 5 Pre-repair: irrigated extensively Skin layer closed with: nylon Skin layer suture size: 4-0 Number of sutures: 1 Technique: running Number of sutures: 1 Course <Nano Alcantara PA-C - Last Filed: 10/28/23 18:26> Orders Ordered: Discontinued Medications Hydrocodone Bitart/Acetaminophen (Hydrocodone/Acet 5/325 Prepack) 1 bottle MISC DIRECTED ONE Stop: 10/28/23 18:21 Last Admin: 10/28/23 18:30 Dose: 1 bottle Documented By: SB Vital Signs Vital signs: Vital Signs - 8 hr 10/28/23 17:13 Temperature 98.1 F Pulse Rate 96 H Respiratory Rate 16 Blood Pressure 114/66 Pulse Oximetry 93 Oxygen Delivery Method Room Air Reviewed <Ilan Amaro DO - Last Filed: 11/01/23 17:55> Orders Ordered: Discontinued Medications Hydrocodone Bitart/Acetaminophen (Hydrocodone/Acet 5/325 Prepack) 1 bottle MISC DIRECTED ONE Stop: 10/28/23 18:21 Last Admin: 10/28/23 18:30 Dose: 1 bottle Documented By: SB Vital Signs Vital signs: Vital Signs - 8 hr 10/28/23 17:13 Temperature 98.1 F Pulse Rate 96 H Respiratory Rate 16 Blood Pressure 114/66 Pulse Oximetry 93 Oxygen Delivery Method Room Air MDM - Wound/Laceration <ANDREY Gilman Last Filed: 10/28/23 18:26> MDM Narrative Medical decision making narrative: Very pleasant 48-year-old female presents to the emergency room department with a 6 in laceration on the right roberts distal right leg that she sustained after her dog scratched her accidentally. No other further complaints. Up-to-date on her immunizations. Laceration repair as above. Prepack of pain medication. Supportive therapy education, ED precautions. Differential diagnosis skin laceration. Discharge Plan Departure Patient Disposition: Home Clinical Impression: Laceration Instructions: How to Care for a Laceration After Repair Activity Restrictions/Additional Instructions: Keep the area clean and dry. Please do not put any bacitracin, Neosporin, new superior and on the area. You can shower normally. Please pat the area dry. Sutures need to come out in 7-10 days. You can get them out in the walk-in clinic, your primary care doctor's office, the urgent Care, the emergency room department. You have a running stitch. There was 1 not on each end, there is 20 loops. Elevate the leg. Zrjn-vzh-rzaljux ibuprofen or Tylenol for discomfort and pain. You have been sent home with some pain medication. No drinking, driving, operating power equipment with the medications. Biggest side effect is sedation. Please put a towel on her leg and put some ice on it that will help with the bruising that you will see tomorrow. Prescriptions: No Action acetaminophen 325 mg Tablet 975 mg PO Q6H PRN (Reason: Fever/Mild Pain (1-3)) Qty: 1 0RF docusate sodium 100 mg Capsule 100 mg PO BID PRN (Reason: Constipation) Qty: 1 0RF amoxicillin 250 mg Capsule 1,000 mg PO TID Qty: 1 0RF Cepacol Sore Throat (alma-men) 15-2.6 mg Lozenge 1 inna PO Q1HR PRN (Reason: Sore Throat) Qty: 1 0RF polyethylene glycol 3350 17 gram Powder In Packet 17 g PO BID PRN (Reason: Constipation) Qty: 1 0RF levothyroxine [Synthroid] 100 mcg Tablet 200 mcg PO 0600 Qty: 1 0RF lorazepam 1 mg Tablet 2 mg PO Q4HR PRN (Reason: Anxiety) Qty: 1 0RF lamotrigine [Lamictal] 100 mg Tablet 450 mg PO BID Qty: 1 0RF oxycodone 5 mg Tablet 5 mg PO Q4HR PRN (Reason: Pain, Moderate (4-6)) Qty: 1 0RF Liraglutide 1.8 mg SUBCUT DAILY Qty: 1 0RF Referrals: Kirby Olsen MD [Primary Care Provider] - Stand Alone Forms: Patient Portal/API ED Sign-out <Ilan Amaro DO - Last Filed: 11/01/23 17:55> Cosign ED Attending Cosignature Attestation: Dr Amaro Co-Sign Statement: I was available for consultation during this patient's emergency department visit. This chart is signed by myself for administrative purposes only. I did not have direct contact with this patient during this visit. They were seen independently by the APC.
[2023-10-28] MEDS: HYDROCODONE/ACET 5/325 PREPACK 1 BOTTLE MISC (18:30)
== END 2023-10-28 18:39 | disposition home or self-care (01) ==
PROVIDERS: Emergency Provider Physician Assistant; Family Provider Internal Medicine; PCP Internal Medicine
DX: S81.811A Laceration without foreign body, right lower leg, initial encounter (principal); X58.XXXA Exposure to other specified factors, initial encounter
CPT/HCPCS: 12001; 99282; 99283

== ENCOUNTER 2023-11-11 16:08 | Emergency (ER) | payer OTHER, MEDICAID, SELFPAY ==
[2023-01-11 23:00] VITALS: BMI 41.0
[2023-01-14 08:09] VITALS: RESP 0
[2023-01-15 07:45] VITALS: PULSE 47; RESP 16; O2SAT 95
[2023-11-11 17:00] VITALS: BP 141/76; PULSE 83; RESP 18; TEMP 37.1; O2SAT 96; BMI 31.0
[2023-11-11 18:02] VITALS: PULSE 67; RESP 17; TEMP 36.7; O2SAT 98
--- NOTE | 2023-11-11 18:02 | ED_ITS ---
HPI - Recheck/Abnormal Lab/Rx <Nico García PA-C - Last Filed: 11/11/23 18:14> General Chief Complaint: Recheck/Abnormal Lab/Rx Stated Complaint: infected stitches in rt leg Time Seen by Provider: 11/11/23 16:54 Source: patient Mode of arrival: Family Vehicle History of Present Illness HPI narrative: This patient is a 48-year-old female that was apparently been by her dog approximately 2 weeks ago. The patient still has approximately 5 loops/sutures in place. The patient has been evaluated by her PCP on 2 occasions as a wound check. The patient was never placed on oral antibiotics for topical antibioti cs. Patient was advised not to apply Neosporin or bacitracin to the affected area per the discharge instructions. The patient is concerned that the wound has not completely closed. However, she has been adhering to the wound care plan. There has been no scant or purulent discharge noted. Patient also denies night sweats, fever, chills, numbness or tingling distally, radiating pain or calf pain. Patient's tetanus status is up-to-date. Related Data Previous Rx's Medication Instructions Recorded Liraglutide 1.8 mg SUBCUT DAILY #1 dose 01/20/23 acetaminophen 325 mg tablet 975 mg (3 x 325 mg) PO Q6H PRN 01/20/23 Fever/Mild Pain (1-3) #1 tab amoxicillin 250 mg capsule 1,000 mg (4 x 250 mg) PO TID #1 cap 01/20/23 benzocaine 15 mg-menthol 2.6 mg 1 inna PO Q1HR PRN Sore Throat #1 ea 01/20/23 lozenges (Cepacol Sore Throat (benzocaine-menthol)) docusate sodium 100 mg capsule 100 mg PO BID PRN Constipation #1 01/20/23 cap lamotrigine 100 mg tablet 450 mg (4.5 x 100 mg) PO BID #1 tab 01/20/23 (Lamictal) levothyroxine 100 mcg tablet 200 mcg (2 x 100 mcg) PO 0600 #1 01/20/23 (Synthroid) tab lorazepam 1 mg tablet 2 mg (2 x 1 mg) PO Q4HR PRN 01/20/23 Anxiety #1 tab oxycodone 5 mg tablet 5 mg PO Q4HR PRN Pain, Moderate 01/20/23 (4-6) #1 tab polyethylene glycol 3350 17 gram 17 g PO BID PRN Constipation #1 ea 01/20/23 oral powder packet amoxicillin 875 mg-potassium 1 tab PO BID #20 tabs 11/11/23 clavulanate 125 mg tablet Allergies Allergy/AdvReac Type Severity Reaction Status Date / Time bee venom protein (honey bee) Allergy Severe Anaphylaxis Verified 11/11/23 17:23 gabapentin AdvReac Mild I gain a Verified 11/11/23 17:23 massive amount of weight Review of Systems <Nico García PA-C - Last Filed: 11/11/23 18:14> Review of Systems Narrative: General: See HPI Integumentary: See HPI All other review of systems have been reviewed and are ultimately negative unless otherwise stated in the HPI Patient History <Nico García PA-C - Last Filed: 11/11/23 18:14> Medical History Morbid obesity with body mass index (BMI) of 50.0 to 59.9 in adult (~09/26/17) ADD (attention deficit disorder) without hyperactivity Osteoarthritis Migraine Irritable bowel syndrome (IBS) Fibromyalgia Asthma Atherosclerosis of abdominal aorta Type 2 diabetes mellitus Depression Anxiety Primary insomnia Snoring Nocturnal hypoxemia Obstructive sleep apnea of adult Social History household members: friend(s) Smoking Status: Current every day smoker Smoking Status: Current every day smoker tobacco type: vaping Substance Use Type: marijuana Exam <Nico García PA-C - Last Filed: 11/11/23 18:14> Initial Vital Signs Initial Vital Signs: Vital Signs Temperature 98.8 F 11/11/23 17:00 Pulse Rate 83 11/11/23 17:00 Respiratory Rate 18 11/11/23 17:00 Blood Pressure 141/76 H 11/11/23 17:00 Pulse Oximetry 96 11/11/23 17:00 Oxygen Delivery Method Room Air 11/11/23 17:00 Const General: cooperative, healthy appearing, comfortable, well developed and well groomed [facility] Head: normal to inspection, normocephalic and atraumatic Eyes General: Yes appearance normal, both eyes and all related structures Visual Cedeño: normal visual cedeño by confrontation EOM: EOM intact bilaterally Neck Neck: normal visual inspection, full ROM, no meningeal signs, trachea midline and supple Resp Effort & Inspection: normal respiratory effort and able to speak in complete sentences Auscultation: clear to auscultation bilaterally Cardio Rate: regular rate Rhythm: regular rhythm Heart Sounds: S1 normal and S2 normal Back/Spine/Pelvis Back: normal to inspection Skin Other: Patient has a 6 cm wound over the anterior and distal aspect of the right tib- fib region. There are 5 loops of sutures still in place. No signs of lymphangitic streaking, purulent discharge noted. Neuro General: patient alert, patient awake and patient oriented x3 Extrem General: normal to inspection, full ROM, capillary refill normal, no joint enlar gement, no clubbing, cyanosis or edema and no calf tenderness Psych Appearance: grossly normal and well kempt <Suly William DO - Last Filed: 11/12/23 07:54> Initial Vital Signs Initial Vital Signs: Vital Signs Temperature 98.8 F 11/11/23 17:00 Pulse Rate 83 11/11/23 17:00 Respiratory Rate 18 11/11/23 17:00 Blood Pressure 141/76 H 11/11/23 17:00 Pulse Oximetry 96 11/11/23 17:00 Oxygen Delivery Method Room Air 11/11/23 17:00 Procedures <Nico García PA-C - Last Filed: 11/11/23 18:14> [facility] [place] Name of Procedure: Suture removal Location: Distal aspect of the anterior right tib-fib region Additional Comments: I removed the remaining sutures without difficulty. There was minimal blood loss. I then reinforced the wound with Steri-Strips. Patient tolerated the procedure well. Coban was then placed to help the Steri-Strips form. Patient tolerated the procedure well. She was then prepped for discharge home. Course <Nico García PA-C - Last Filed: 11/11/23 18:14> Course Course Narrative: Patient was seen and examined. Old Steri-Strips were removed as well as the remaining loops of suture material. Steri-Strips were then reapplied and the patient was prepped for discharge home. Vital Signs Vital signs: Vital Signs - 8 hr 11/11/23 17:00 Temperature 98.8 F Pulse Rate 83 Respiratory Rate 18 Blood Pressure 141/76 H Pulse Oximetry 96 Oxygen Delivery Method Room Air <Suly William DO - Last Filed: 11/12/23 07:54> Vital Signs Vital signs: Vital Signs - 8 hr 11/11/23 17:00 Temperature 98.8 F Pulse Rate 83 Respiratory Rate 18 Blood Pressure 141/76 H Pulse Oximetry 96 Oxygen Delivery Method Room Air MDM - Recheck/Abnormal Lab/Rx <Nico García PA-C - Last Filed: 11/11/23 18:14> Differential Diagnosis Differential diagnosis: Likely encounter for wound recheck, encounter for removal of sutures and other (Wound dehiscence, cellulitis, abscess) Medical Records Attestation: I reviewed the patient's medical records. [facility] Narrative Medical decision making narrative: At this time, the patient does not appear to have any evidence of wound dehiscence or secondary abscess formation. However, I will start the patient on Augmentin since the wound is still healing at the 2 week ashwini. Patient states that her A1c was noted to be 4.9 so this is obviously under control. The patient understands the treatment plan. No additional questions at the time of discharge and she will follow up as requested Discharge Plan Departure Patient Disposition: Home Clinical Impression: Encounter for re-check of laceration wound Dog bite Qualifiers: Encounter type: subsequent encounter Qualified Code(s): W54.0XXD - Bitten by dog, subsequent encounter Instructions: How to Care for a Surgical Wound Activity Restrictions/Additional Instructions: Keep the affected area clean, covered and dry Start the antibiotics today as prescribed Follow-up with your PCP this week as scheduled Return here if worse or for any new, emergent concern Prescriptions: New amoxicillin-pot clavulanate 875-125 mg tablet 1 tab PO BID Qty: 20 0RF No Action acetaminophen 325 mg Tablet 975 mg PO Q6H PRN (Reason: Fever/Mild Pain (1-3)) Qty: 1 0RF docusate sodium 100 mg Capsule 100 mg PO BID PRN (Reason: Constipation) Qty: 1 0RF amoxicillin 250 mg Capsule 1,000 mg PO TID Qty: 1 0RF Cepacol Sore Throat (alma-men) 15-2.6 mg Lozenge 1 inna PO Q1HR PRN (Reason: Sore Throat) Qty: 1 0RF polyethylene glycol 3350 17 gram Powder In Packet 17 g PO BID PRN (Reason: Constipation) Qty: 1 0RF levothyroxine [Synthroid] 100 mcg Tablet 200 mcg PO 0600 Qty: 1 0RF lorazepam 1 mg Tablet 2 mg PO Q4HR PRN (Reason: Anxiety) Qty: 1 0RF lamotrigine [Lamictal] 100 mg Tablet 450 mg PO BID Qty: 1 0RF oxycodone 5 mg Tablet 5 mg PO Q4HR PRN (Reason: Pain, Moderate (4-6)) Qty: 1 0RF Liraglutide 1.8 mg SUBCUT DAILY Qty: 1 0RF Referrals: Kirby Olsen MD [Primary Care Provider] - Stand Alone Forms: Patient Portal/API ED Sign-out <Suly William DO - Last Filed: 11/12/23 07:54> Cosign ED Attending Coscoltature Attestation: I was available for consultation.
== END 2023-11-11 18:06 | disposition home or self-care (01) ==
PROVIDERS: Emergency Provider Physician Assistant; Family Provider Internal Medicine; PCP Internal Medicine
DX: Z48.00 Encounter for change or removal of nonsurgical wound dressing (principal); W54.0XXD Bitten by dog, subsequent encounter
CPT/HCPCS: 99281

== ENCOUNTER 2024-10-28 18:49 | Emergency (ER) | payer MEDICAID, SELFPAY ==
[2023-01-11 23:00] VITALS: BMI 41.0
[2023-01-14 08:09] VITALS: RESP 0
[2023-01-15 07:45] VITALS: PULSE 47; RESP 16; O2SAT 95
[2024-10-28 19:23] VITALS: BP 142/96; PULSE 99; RESP 16; TEMP 36.6; O2SAT 96; BMI 31.0
--- NOTE | 2024-10-28 19:27 | DI.RAD.S_ITS ---
PROCEDURE: XR ANKLE RT MIN 3V INDICATIONS: rolled ankle, unable to bear weight TECHNIQUE: 3 views of the ankle were acquired. COMPARISON: None. FINDINGS: Bones: There is anatomic alignment. On the frontal view there is suggestion of cortical disruption of the tip of the lateral malleolus as well as a lucency at the base of the medial malleolus extending to the articular surface. No displaced osseous fragment. Surgical screw seen in the proximal 5th metatarsal. Soft tissues: No tibiotalar joint effusion. Achilles tendon appears normal. IMPRESSION: Questionable nondisplaced fractures of the medial and lateral malleoli, if persistent concern, can be further assessed with CT. Dictated by: Curt Jimenez M.D. on 10/28/2024 at 20:21 Approved by: Curt Jimenez M.D. on 10/28/2024 at 20:24
--- NOTE | 2024-10-28 21:53 | ED.LOWEXIN ---
HPI - Extremity Injury (Lower) General Chief Complaint: Extremity Injury, Lower Stated Complaint: R ankle sprain or break Time Seen by Provider: 10/28/24 21:45 Source: patient Mode of arrival: Family Vehicle History of Present Illness HPI Narrative: 49-year-old female patient with a history of bipolar disorder who had a twisting injury to the right ankle 2 days ago and has had persistent pain though she has been limping on it. Mild swelling. No other injury. Related Data Previous Rx's ?Medication ?Instructions ?Recorded Liraglutide 1.8 mg SUBCUT DAILY #1 dose 01/20/23 acetaminophen 325 mg tablet 975 mg (3 x 325 mg) PO Q6H PRN 01/20/23 Fever/Mild Pain (1-3) #1 tab amoxicillin 250 mg capsule 1,000 mg (4 x 250 mg) PO TID #1 cap 01/20/23 benzocaine 15 mg-menthol 2.6 mg 1 inna PO Q1HR PRN Sore Throat #1 ea 01/20/23 lozenges (Cepacol Sore Throat (benzocaine-menthol)) docusate sodium 100 mg capsule 100 mg PO BID PRN Constipation #1 01/20/23 cap lamotrigine 100 mg tablet 450 mg (4.5 x 100 mg) PO BID #1 tab 01/20/23 (Lamictal) levothyroxine 100 mcg tablet 200 mcg (2 x 100 mcg) PO 0600 #1 01/20/23 (Synthroid) tab lorazepam 1 mg tablet 2 mg (2 x 1 mg) PO Q4HR PRN 01/20/23 Anxiety #1 tab oxycodone 5 mg tablet 5 mg PO Q4HR PRN Pain, Moderate 01/20/23 (4-6) #1 tab polyethylene glycol 3350 17 gram 17 g PO BID PRN Constipation #1 ea 01/20/23 oral powder packet amoxicillin 875 mg-potassium 1 tab PO BID #20 tabs 11/11/23 clavulanate 125 mg tablet Allergies Allergy/AdvReac Type Severity Reaction Status Date / Time bee venom protein (honey bee) Allergy Severe Anaphylaxis Verified 10/28/24 19:23 gabapentin AdvReac Mild I gain a Verified 10/28/24 19:23 massive amount of weight Review of Systems Review of Systems ROS Unobtainable: All systems reviewed & are unremarkable except as noted in HPI and below Musculoskeletal Musculoskeletal: Reports as per HPI Patient History Medical History Morbid obesity with body mass index (BMI) of 50.0 to 59.9 in adult (~09/26/17) ADD (attention deficit disorder) without hyperactivity Osteoarthritis Migraine Irritable bowel syndrome (IBS) Fibromyalgia Asthma Atherosclerosis of abdominal aorta Type 2 diabetes mellitus Depression Anxiety Primary insomnia Snoring Nocturnal hypoxemia Obstructive sleep apnea of adult Social History household members: friend(s) tobacco type: vaping Exam Narrative Exam Narrative: General: Alert and conversant. No distress. Appears well nourished and well hydrated Lungs: Clear to auscultation with good air movement. No wheezing, rales or rhonchi. No respiratory distress Cardiac: Regular rate and rhythm with no appreciable murmur or gallop Abdomen: Soft, nontender with no distention or masses. Normal bowel sounds. No rebound or guarding Musculoskeletal: Moderate soft tissue tenderness of the right ankle distal to the malleolus. Minimal tenderness of the malleoli bilaterally with no deformity. Otherwise Exam of the extremities, axial spine and ribcage reveals no deformity, bony tenderness or swelling. Range of motion intact Neuro: Alert and oriented. Cranial nerves, motor, sensory and cerebellar all grossly intact. No focal deficit Skin: Warm and normal color. No rashes Psychological: Normal affect and interaction. No evidence of delusion or psychosis. Normal mood. Initial Vital Signs Initial Vital Signs: Vital Signs Temperature 97.9 F 10/28/24 19:23 Pulse Rate 99 H 10/28/24 19:23 Respiratory Rate 16 10/28/24 19:23 Blood Pressure 142/96 H 10/28/24 19:23 Pulse Oximetry 96 10/28/24 19:23 Oxygen Delivery Method Room Air 10/28/24 19:23 Course Course Course Narrative: On history and physical exam the patient has a sprained ankle. However the radiologist read the x-ray as possible malleolar fractures. For this reason she was treated as if possibly fracture but this seems to be a sprain. She was splinted with a stirrup splint, crutches, ice, elevation. Follow up with primary care or Orthopedics. Orders Ordered: ED Orders 10/28/24 19:27 XR ankle RT min 3V Stat Discontinued Medications Hydrocodone Bitart/Acetaminophen (Hydrocodone/Acet 5/325 Prepack) 1 bottle MISC DIRECTED ONE Stop: 10/28/24 21:57 Last Admin: 10/28/24 22:04 Dose: 1 bottle Documented By: NAI Vital Signs Vital signs: Vital Signs - 8 hr 10/28/24 19:23 10/28/24 22:41 Temperature 97.9 F Pulse Rate 99 H 89 Respiratory Rate 16 17 Blood Pressure 142/96 H 132/86 Pulse Oximetry 96 93 Oxygen Delivery Method Room Air Room Air [facility] - Extremity Injury (Lower) Imaging Data Extremity x-ray #1: Attestation: I personally reviewed and interpreted this imaging study as follows: My Impression: No fracture evident on my exam Radiologist's Impression: IMPRESSION: Questionable nondisplaced fractures of the medial and lateral malleoli, if persistent concern, can be further assessed with CT. [facility] Narrative Medical decision making narrative: Patient has a 2-day-old injury of the right ankle with soft tissue tenderness and minimal bony tenderness. Radiographs reveal no obvious fracture but read as possible malleolar fractures by Radiology. The tenderness at the bilateral malleoli is minimal. I believe this does not represent a fracture but we will treat as if until proven otherwise. Patient has a stirrup splint, crutches, nonweightbearing, ice and elevation with ibuprofen and hydrocodone. Follow up with primary care or orthopedics within the next 5 days. Discharge Plan Departure Patient Disposition: Home Clinical Impression: Right ankle sprain Instructions: Ankle Sprain Activity Restrictions/Additional Instructions: Assessment: Right ankle injury which appears to be a sprain with possible subtle fracture. Plan: Splint, crutches, ice and elevation. Ibuprofen and hydrocodone. Follow up with primary care or orthopedics within the next 4-5 days for reassessment. Prescriptions: No Action acetaminophen 325 mg Tablet 975 mg PO Q6H PRN (Reason: Fever/Mild Pain (1-3)) Qty: 1 0RF docusate sodium 100 mg Capsule 100 mg PO BID PRN (Reason: Constipation) Qty: 1 0RF amoxicillin 250 mg Capsule 1,000 mg PO TID Qty: 1 0RF Cepacol Sore Throat (alma-men) 15-2.6 mg Lozenge 1 inna PO Q1HR PRN (Reason: Sore Throat) Qty: 1 0RF polyethylene glycol 3350 17 gram Powder In Packet 17 g PO BID PRN (Reason: Constipation) Qty: 1 0RF levothyroxine [Synthroid] 100 mcg Tablet 200 mcg PO 0600 Qty: 1 0RF lorazepam 1 mg Tablet 2 mg PO Q4HR PRN (Reason: Anxiety) Qty: 1 0RF lamotrigine [Lamictal] 100 mg Tablet 450 mg PO BID Qty: 1 0RF oxycodone 5 mg Tablet 5 mg PO Q4HR PRN (Reason: Pain, Moderate (4-6)) Qty: 1 0RF Liraglutide 1.8 mg SUBCUT DAILY Qty: 1 0RF amoxicillin-pot clavulanate 875-125 mg tablet 1 tab PO BID Qty: 20 0RF Referrals: Kirby Olsen MD [Primary Care Provider, Internal Medicine] Stand Alone Forms: Patient Portal/API
[2024-10-28 22:41] VITALS: BP 132/86; PULSE 89; RESP 17; O2SAT 93
== END 2024-10-28 22:43 | disposition home or self-care (01) ==
PROVIDERS: Emergency Provider Emergency Medicine; Family Provider Internal Medicine; PCP Internal Medicine
DX: S93.401A Sprain of unspecified ligament of right ankle, initial encounter (principal); X50.1XXA Overexertion from prolonged static or awkward postures, initial encounter
CPT/HCPCS: 73610; 99282; 99283